=== PATIENT | female | born 1940 | race Caucasian/White ===

== ENCOUNTER 2018-02-19 14:54 | Emergency (ER) | payer OTHER ==
--- OUTSIDE RECORDS SUMMARY | 2018-02-19 14:56 | XMS REPORT ---
:1940 Author Organization e[employer] Care Team Providers Name Role Phone Phan, Na Provider Role Unavailable Allergies, Adverse Reactions, Alerts Substance Reaction Event Type N.K.D.A. Info Not Available Non Drug Allergy Problems Problem Type Condition Code Onset Dates Condition Status Assessment Dysphagia, unspecified type R13.10 Active Problem Parkinson disease G20 Active Problem Thyroiditis, unspecified E06.9 Active Problem Primary insomnia F51.01 Active Problem Osteoporosis M81.0 Active Problem Dysphagia, unspecified type R13.10 Active Problem Age related osteoporosis, M81.0 Active unspecified pathological fracture presence Problem Gastroesophageal reflux disease K21.9 Active without esophagitis Problem Mixed stress and urge urinary N39.46 Active incontinence Assessment Gastroesophageal reflux disease K21.9 Active without esophagitis Assessment Parkinson disease G20 Active Assessment Primary insomnia F51.01 Active Assessment Age related osteoporosis, M81.0 Active unspecified pathological fracture presence Assessment Mixed stress and urge urinary N39.46 Active incontinence Medications Medication Code Code Instructions Start End Status Dosage System Date Date Fosamax [facility] 07480072828 70 MG Orally Active 1 tablet Flonase [facility] 92275405544 50 MCG/ACT Active 1 spray in Nasally Once a each day nostril Carbidopa [facility] 52616973872 25 MG Orally Active 1 tablet Three times a day Ropinirole HCl [facility] 05606558977 5 MG Orally four Active 1 tablet times a day Results Name Result Date Reference Range Unit Abnormality Flag Barium Swallow Modified Summary Purpose eClinicalWorks Submission
--- OUTSIDE RECORDS SUMMARY | 2018-02-19 14:56 | XMS REPORT ---
:1940 Author Organization [employer] Care Team Providers Name Role Phone Phan, Na Provider Role Unavailable Allergies No Known Allergies Problems Problem Type Condition Code Onset Dates Condition Status Problem Parkinson disease G20 Active Problem Thyroiditis, unspecified E06.9 Active Problem Primary insomnia F51.01 Active Problem Osteoporosis M81.0 Active Problem Dysphagia, unspecified type R13.10 Active Problem Age related osteoporosis, M81.0 Active unspecified pathological fracture presence Problem Gastroesophageal reflux disease K21.9 Active without esophagitis Problem Mixed stress and urge urinary N39.46 Active incontinence Medications No Known Medications Results No Known Results Summary Purpose eClinicalWorks Submission
[2018-02-19] MEDS ORDERED: METOCLOPRAMIDE 10 MG/2mL INJ ONE (15:51)
[2018-02-19] MEDS ORDERED: DIPHENHYDRAMINE 50 MG/ML VIAL ONE (15:51)
[2018-02-19 15:56] LABS: Absolute Lymphocytes (CBC) 1.4 K/uL (0.7-4.9); Absolute Monocytes 0.6 K/uL (0.1-1.3); Absolute Neutrophil 5.6 K/uL (1.8-8.0); Basophils % 0.7 % (0-1.3); Eosinophils % 1.1 % (0-4.4); Hematocrit 35.4 % (36.0-45.0); Lymphocytes % 17.8 % (15.3-44.8); MCH 30.7 pg (27.0-35.0); MCV 89.3 fL (80-100); MPV 7.6 fL (7.6-11.3); Monocytes % 7.7 % (3.3-12.3); RBC Red Blood Cell Count 3.97 M/uL (3.86-4.86)
[2018-02-19 16:01] LABS: Protime INR 1.07
[2018-02-19 16:13] LABS: ALT/SGPT 23 U/L (12-78); AST/SGOT 32 U/L (15-37); Albumin 3.6 g/dL (3.4-5.0); Alkaline Phosphatase 97 U/L (45-117); BUN Blood Urea Nitrogen 20 mg/dL (7-18); Bicarbonate 27 mmol/L (21-32); Bilirubin Direct 0.1 mg/dL (0-0.2); Bilirubin Total 0.4 mg/dL (0.2-1.0); C-Reactive Protein < 2.90 mg/L (<3.00); Glucose Level 104 mg/dL (74-106); Magnesium 2.2 mg/dL (1.8-2.4); Potassium 3.3 mmol/L (3.5-5.1); Protein, Total 6.8 g/dL (6.4-8.2); Sodium Level 137 mmol/L (136-145)
[2018-02-19] MEDS ORDERED: Nicardipine/NS 25 MG/250 ML KIT IV ONE (16:25)
--- NOTE | 2018-02-19 16:26 | RAD REPORT ---
EXAM DESCRIPTION: CT - Head Brain Wo Cont - 02/19/2018 4:07 pm CLINICAL HISTORY: HEADACHE COMPARISON: None TECHNIQUE: All CT scans are performed using dose optimization technique as appropriate and may inclu de automated exposure control or mA/KV adjustment according to patient size. FINDINGS: Acute right-sided subdural hematoma is noted noted measuring 10 mm in maximum thickness. A component of chronic hematoma may also be present anteriorly along the right frontal convexity.Midli ne shift is mild at 1- 2 mm to the left. Moderate brain edema. Fluid is present in the right sphenoid sinus. The calvarium is intact. IMPRESSION: Acute right-sided subdural hematoma as detailed. Midline shift to the left is mild at 1 -2 mm. Findings were discussed with SONNY Gutierrez in the ER 4:20 p.m. 02/19/2018 by telephone
--- NOTE | 2018-02-19 16:44 | EDPHYS ---
Physician Documentation [facility] Name: Megha Arredondo Age: 78 yrs Sex: Female : 1940 Arrival Date: 02/19/2018 Time: 14:57 Bed 19 Private MD: ED Physician José Miguel Beth HPI: 02/19 16:40 This 78 yrs old Female presents to ER via Ambulatory with complaints of jr8 Vision Problem, Headache. 16:40 The patient complains of pain to the . The patient complains of pain to the forehead jr8 and right occipital area. The patient describes the headache as constant, throbbing. Onset: The symptoms/episode began/occurred acutely, today. Associated signs and symptoms: Pertinent positives: blurred vision. Severity of symptoms: At its worst the pain was moderate, in the emergency department the pain is unchanged. Headache History: Denies prior headaches. The symptoms are alleviated by nothing. the symptoms are aggravated by movement. The patient has not experienced similar symptoms in the past. The patient has not recently seen a physician. family stated that she has had frequent falls as of lately because of medications that she is on. Started with headache today . Historical: - Allergies: 15:06 Aspirin; aj1 - Home Meds: 15:06 ropinirole 5 mg Oral tab [Active]; aj1 - PMHx: 15:06 Parkinsons; aj1 - Immunization history:: Flu vaccine is up to date. - Social history:: Smoking status: Patient/guardian denies using tobacco. - Immunization history: Last tetanus immunization: unknown. - Ebola Screening: : Patient denies travel to an Ebola-affected area in the 21 days before illness onset. ROS: 16:40 Eyes: Negative for injury, pain, redness, and discharge, ENT: Negative for injury, jr8 pain, and discharge, Neck: Negative for injury, pain, and swelling, Cardiovascular: Negative for chest pain, palpitations, and edema, Respiratory: Negative for shortness of breath, cough, wheezing, and pleuritic chest pain, Abdomen/GI: Negative for abdominal pain, nausea, vomiting, diarrhea, and constipation, Back: Negative for injury and pain, MS/Extremity: Negative for injury and deformity, Skin: Negative for injury, rash, and discoloration. 16:40 Neuro: Positive for headache, visual changes, Negative for altered mental status, dizziness, gait disturbance, hearing loss, loss of consciousness, numbness, seizure activity, speech changes, syncope, near syncope, tingling, tinnitus, tremor, weakness. Exam: 16:40 Eyes: Pupils equal round and reactive to light, extra-ocular motions intact. Lids and jr8 lashes normal. Conjunctiva and sclera are non-icteric and not injected. Cornea within normal limits. Periorbital areas with no swelling, redness, or edema. ENT: Nares patent. No nasal discharge, no septal abnormalities noted. Tympanic membranes are normal and external auditory canals are clear. Oropharynx with no redness, swelling, or masses, exudates, or evidence of obstruction, uvula midline. Mucous membranes moist. Neck: Trachea midline, no thyromegaly or masses palpated, and no cervical lymphadenopathy. Supple, full range of motion without nuchal rigidity, or vertebral point tenderness. No Meningismus. Cardiovascular: Regular rate and rhythm with a normal S1 and S2. No gallops, murmurs, or rubs. Normal PMI, no JVD. No pulse deficits. Respiratory: Lungs have equal breath sounds bilaterally, clear to auscultation and percussion. No rales, rhonchi or wheezes noted. No increased work of breathing, no retractions or nasal flaring. Abdomen/GI: Soft, non-tender, with normal bowel sounds. No distension or tympany. No guarding or rebound. No evidence of tenderness throughout. Back: No spinal tenderness. No costovertebral tenderness. Full range of motion. Skin: Warm, dry with normal turgor. Normal color with no rashes, no lesions, and no evidence of cellulitis. MS/ Extremity: Pulses equal, no cyanosis. Neurovascular intact. Full, normal range of motion. Neuro: Awake and alert, GCS 15, oriented to person, place, time, and situation. Cranial nerves II-XII grossly intact. Motor strength 5/5 in all extremities. Sensory grossly intact. Cerebellar exam normal. Normal gait. 16:45 ECG was reviewed by the Attending Physician. jr8 Vital Signs: 15:06 BP 162 / 88; Pulse 84; Resp 18; Temp 99.7(TE); Pulse Ox 97% on R/A; Weight 62.6 kg (R); aj1 Height 5 ft. 7 in. (170.18 cm) (R); Pain 6/10; 15:48 BP 177 / 85; Pulse 73; Resp 16; Pulse Ox 96% on R/A; em 16:27 BP 191 / 87; Pulse 85; Resp 16; Pulse Ox 96% on R/A; iw 16:32 BP 149 / 73; Pulse 91; Resp 16 S; Pulse Ox 96% ; Pain 6/10; iw 16:33 BP 152 / 71; iw 16:41 BP 148 / 77; Pulse 89; Resp 16; Pulse Ox 96% on R/A; em 17:29 BP 152 / 76; Pulse 94; Resp 18; Temp 98.0(O); Pulse Ox 96% on R/A; Pain 0/10; em 17:40 BP 161 / 91; Pulse 96; Resp 16; Pulse Ox 96% on R/A; Pain 0/10; em 17:56 BP 156 / 86; Pulse 89; Resp 17; Temp 97.8(TE); Pulse Ox 97% on R/A; Pain 5/10; iw 15:06 Body Mass Index 21.61 (62.60 kg, 170.18 cm) aj1 Briscoe Coma Score: 16:27 Eye Response: spontaneous(4). Verbal Response: confused(4). Motor Response: obeys iw commands(6). Total: 14. Trauma Score (Adult): 15:15 Eye Response: to voice(0); Verbal Response: oriented(1); Motor Response: obeys iw commands(2); Systolic BP: > 89 mm Hg(4); Respiratory Rate: 10 to 29 per min(4); [place]acido Score: 14; Trauma Score: 11 16:27 Eye Response: spontaneous(1); Verbal Response: oriented(1); Motor Response: obeys iw commands(2); Systolic BP: > 89 mm Hg(4); Respiratory Rate: 10 to 29 per min(4); [place]acido Score: 15; Trauma Score: 12 17:56 Eye Response: spontaneous(1); Verbal Response: oriented(1); Motor Response: obeys iw commands(2); Systolic BP: > 89 mm Hg(4); Respiratory Rate: 10 to 29 per min(4); Placido Score: 15; Trauma Score: 12 MDM: 15:28 Patient medically screened. [facility] 16:40 Data reviewed: vital signs, nurses notes, lab test result(s), radiologic studies, CT jr8 scan, and as a result, I will admit patient. Data interpreted: Pulse oximetry: on room air is 96 %. Interpretation: normal. Counseling: I had a detailed discussion with the patient and/or guardian regarding: the historical points, exam findings, and any diagnostic results supporting the discharge/admit diagnosis, lab results, radiology results, the need to transfer to another facility, for higher level of care, [facility] does not immediately have the required specialist. ED course: Dr. Fowler Accepted at [facility]. 02/19 15:44 Order name: Basic Metabolic Panel; Complete Time: 16:14 02/19 15:44 Order name: CBC with Diff; Complete Time: 16:02/19 15:44 Order name: LFT's; Complete Time: 16:02/19 15:44 Order name: Magnesium; Complete Time: 16:14 02/19 15:44 Order name: PT-INR; Complete Time: 16:03 02/19 15:44 Order name: ESR; Complete Time: 16:02/19 15:44 Order name: EKG; Complete Time: 15:44 02/19 15:44 Order name: Cardiac monitoring; Complete Time: 16:32 02/19 15:44 Order name: CRP; Complete Time: 16:02/19 15:44 Order name: CT Head Brain wo Cont; Complete Time: 16:27 02/19 15:44 Order name: EKG - Nurse/Tech; Complete Time: 16:32 02/19 15:44 Order name: IV Saline Lock; Complete Time: 15:02/19 15:44 Order name: Labs collected and sent; Complete Time: 15:02/19 15:44 Order name: O2 Per Protocol; Complete Time: :02/19 15:44 Order name: O2 Sat Monitoring; Complete Time: 15:52 EC:45 Rate is 85 beats/min. Rhythm is regular, Normal Sinus Rhythm. QRS [place] is Normal. RI jr8 interval is normal at 170 msec. QRS interval is normal at 84 msec. QT interval is normal at 430 msec. No Q waves. T waves are Normal. No ST changes noted. Clinical impression: Normal ECG. Interpreted by me. Reviewed by me. Administered Medications: 16:11 Drug: Reglan 10 mg Route: IVP; Site: right antecubital; iw 17:02 Follow up: Response: No adverse reaction em 16:11 Drug: Benadryl 25 mg Route: IVP; Site: right antecubital; iw 17:02 Follow up: Response: No adverse reaction em 16:27 Drug: Cardene 5 mg Route: IV; Rate: ml/hr; Site: right antecubital; iw 18:19 Follow up: Response: No adverse reaction; Blood pressure is lowered; IV Status: em Completed infusion; IV Intake: 50ml 16:31 Not Given (Physician Discretion): Potassium Chloride 20 mEq PO once jr8 Disposition: 02/19/18 16:43 Transfer ordered to [facility]. Diagnosis is Acute Traumatic Subdural Hemorrhage . - Reason for transfer: Higher level of care. - Accepting physician is Dr. Fowler . - Condition is Stable. - Problem is new. - Symptoms have improved. Critical care time excluding procedures: 16:40 Critical care time: Bedside Care: 15 minutes, Consultation: 10 minutes, Family jr8 Intervention: 10 minutes. Total time: 35 minutes Addendum: 02/21/2018 13:58 Co-signature as Attending Physician, José Miguel Beth MD I agree with the assessment and c bush plan of care. Signatures: Dispatcher [employer] Nany Lawson RN RN aj1 José Miguel Beth MD MD cha Munoz, Edgar, SALES ADMINISTRATION SPECIALIST SALES ADMINISTRATION SPECIALIST em Alyson Leach RN RN Shaun Soto PA PA jr8 Corrections: (The following items were deleted from the chart) 02/19 18:20 15:44 Urine Dipstick-Ancillary ordered. jr8 em 18:21 16:43 02/19/2018 16:43 Transfer ordered to [facility]. Diagnosis is em Acute Traumatic Subdural Hemorrhage . Reason for transfer: Higher level of care. Accepting physician is Dr. Fowler . Condition is Stable. Problem is new. Symptoms have improved. jr8
--- NOTE | 2018-02-19 16:44 | ER ---
Nurse's Notes [facility] Name: Megha Arredondo Age: 78 yrs Sex: Female : 1940 Arrival Date: 02/19/2018 Time: 14:57 Bed 19 Private MD: Diagnosis: Acute Traumatic Subdural Hemorrhage Presentation: 02/19 14:57 Presenting complaint: Child states: They came home from vacation on February 02, while aj1 they were on vacation the daugther noticed that all of her symptoms (shaking, drowsiness, difficulty walking, acting "like shes drunk") appear after she takes her Parkinson's medication, so they weaned her off of all her medication. She started taking ropinorole 3 days ago. She always falls asleep after taking the medication and then acts really loopy after she wakes up. See can't see because she has a cataract in her right eye, which they had confirmed by an demurrage agent yesterday. Patient now complains of a headache. Aligning Inspector are equal bilaterally, equal smile and hand script manager. States her vision is blurry in the left eye, which is new. Hematoma noted to forehead. Patient's daughter states that when they walked in she didn't see the glass door and walked into it. Denies LOC. Transition of care: patient was not received from another setting of care. Onset of symptoms was February 19, 2018. Risk Assessment: Do you want to hurt yourself or someone else? Patient reports no desire to harm self or others. Initial Sepsis Screen: Does the patient meet any 2 criteria? No. Patient's initial sepsis screen is negative. Does the patient have a suspected source of infection? No. Patient's initial sepsis screen is negative. Care prior to arrival: None. 14:57 Method Of Arrival: Ambulatory aj1 14:57 Acuity: RUBENS 3 aj1 16:28 Mechanism of Injury: Fall from standing position. Trauma event details: Injury occurred iw in the [facility]. Triage Assessment: 15:06 Headache History: Denies prior headaches. General: Appears in no apparent distress. aj1 uncomfortable, Behavior is calm, cooperative, appropriate for age. Pain: Complains of pain in forehead and base of the skull Pain currently is 6 out of 10 on a pain scale. Pain began 3 hours ago. Neuro: Level of Consciousness is awake, alert, obeys commands, Aligning Inspector are equal bilaterally Facial symmetry appears normal. Cardiovascular: Patient's skin is warm and dry. Respiratory: Airway is patent Respiratory effort is even, unlabored, Respiratory pattern is regular, symmetrical. 17:57 Pain: Also complains of. iw Trauma Activation: Not Applicable Physician: ED Physician; Name: ; Notified At: ; Arrived At: Physician: General Surgeon; Name: ; Notified At: ; Arrived At: Physician: Radiology; Name: ; Notified At: ; Arrived At: Physician: Respiratory; Name: ; Notified At: ; Arrived At: Physician: Lab; Name: ; Notified At: ; Arrived At: Historical: - Allergies: 15:06 Aspirin; aj1 - Home Meds: 15:06 ropinirole 5 mg Oral tab [Active]; aj1 - PMHx: 15:06 Parkinsons; aj1 - Immunization history:: Flu vaccine is up to date. - Social history:: Smoking status: Patient/guardian denies using tobacco. - Immunization history: Last tetanus immunization: unknown. - Ebola Screening: : Patient denies travel to an Ebola-affected area in the 21 days before illness onset. Screenin:20 Abuse screen: Denies threats or abuse. Denies injuries from another. Nutritional mg2 screening: No deficits noted. Tuberculosis screening: No symptoms or risk factors identified. Fall Risk None identified. Secondary diagnosis (15 points) blurred vision. Primary Survey: 15:25 A: Airway: patent. Breathing/Chest: Respiratory pattern: regular, Respiratory effort: iw spontaneous, unlabored, Breath sounds: clear, bilaterally. Chest inspection: symmetrical rise and fall of the chest. Circulation: Cardiac rhythm: sinus rhythm Heart tones present. Pulses: palpable left carotid pulse and right carotid pulse. Skin color: pink, Skin temperature: warm, dry. Disability Alert. 15:45 Reassessment Breathing/Chest Respiratory pattern Regular Respiratory effort Spontaneous iw Unlabored Breath sounds Clear Chest inspection Symmetrical Circulation Heart rhythm Heart tones Present Pulses Palpable Color [place] Temperature Warm Dry Disability Verbal stimuli. Secondary Survey: 16:00 HEENT: No deficits noted. Head No injury/deformity Face No injury/deformity Eyes: No iw injury or deformity noted. to bilateral eyes. Gastrointestinal: Abdomen is soft. Musculoskeletal: Range of motion: intact in all extremities. Assessment: 15:20 General: Appears uncomfortable, Behavior is calm, cooperative, daughter reports blurred em on the left eye and headache since noon, ran into clear glass door of the ER TELESALES AGENT, hematoma noted to forehead. Pain: Complains of pain in head Pain currently is 6 out of 10 on a pain scale. Neuro: Level of Consciousness is awake, alert, obeys commands, Oriented to person, place, time, situation, Aligning Inspector are equal bilaterally Moves all extremities. Full function Speech is normal, Facial symmetry appears normal, Reports headache. Cardiovascular: Capillary refill < 3 seconds Patient's skin is warm and dry. Respiratory: Airway is patent Respiratory effort is even, unlabored, Respiratory pattern is regular, symmetrical. GI: Abdomen is round non-distended. : No signs and/or symptoms were reported regarding the genitourinary system. Derm: Skin is intact, Skin is pink, warm \\T\\ dry. Musculoskeletal: Swelling present in forehead. 15:40 Reassessment: Patient appears in no apparent distress at this time. I agree with above iw assessment by En Henson LVN. 16:20 Reassessment: Patient appears in no apparent distress at this time. Patient and/or em family updated on plan of care and expected duration. Pain level reassessed. Patient is alert, oriented x 3, equal unlabored respirations, skin warm/dry/pink. 17:00 Reassessment: Patient appears in no apparent distress at this time. unable to give em report due to code in unit, will attempt to call back in 10 minutes. 17:01 Reassessment: Patient appears in no apparent distress at this time. Patient and/or em family updated on plan of care and expected duration. Pain level reassessed. Patient is alert, oriented x 3, equal unlabored respirations, skin warm/dry/pink. 17:22 Reassessment: Patient appears in no apparent distress at this time. report called to em Gilberto Mcrae RN at [facility]. 18:03 Reassessment: Patient appears in no apparent distress at this time. Patient and/or em family updated on plan of care and expected duration. Pain level reassessed. Patient is alert, oriented x 3, equal unlabored respirations, skin warm/dry/pink. Patient denies pain at this time. 18:11 Reassessment: Patient appears in no apparent distress at this time. report given to [facility]. Vital Signs: 15:06 BP 162 / 88; Pulse 84; Resp 18; Temp 99.7(TE); Pulse Ox 97% on R/A; Weight 62.6 kg (R); aj1 Height 5 ft. 7 in. (170.18 cm) (R); Pain 6/10; 15:48 BP 177 / 85; Pulse 73; Resp 16; Pulse Ox 96% on R/A; em 16:27 BP 191 / 87; Pulse 85; Resp 16; Pulse Ox 96% on R/A; iw 16:32 BP 149 / 73; Pulse 91; Resp 16 S; Pulse Ox 96% ; Pain 6/10; iw 16:33 BP 152 / 71; iw 16:41 BP 148 / 77; Pulse 89; Resp 16; Pulse Ox 96% on R/A; em 17:29 BP 152 / 76; Pulse 94; Resp 18; Temp 98.0(O); Pulse Ox 96% on R/A; Pain 0/10; em 17:40 BP 161 / 91; Pulse 96; Resp 16; Pulse Ox 96% on R/A; Pain 0/10; em 17:56 BP 156 / 86; Pulse 89; Resp 17; Temp 97.8(TE); Pulse Ox 97% on R/A; Pain 5/10; iw 15:06 Body Mass Index 21.61 (62.60 kg, 170.18 cm) aj1 [place] Coma Score: 16:27 Eye Response: spontaneous(4). Verbal Response: confused(4). Motor Response: obeys iw commands(6). Total: 14. Trauma Score (Adult): 15:15 Eye Response: to voice(0); Verbal Response: oriented(1); Motor Response: obeys iw commands(2); Systolic BP: > 89 mm Hg(4); Respiratory Rate: 10 to 29 per min(4); [place] Score: 14; Trauma Score: 11 16:27 Eye Response: spontaneous(1); Verbal Response: oriented(1); Motor Response: obeys iw commands(2); Systolic BP: > 89 mm Hg(4); Respiratory Rate: 10 to 29 per min(4); [place] Score: 15; Trauma Score: 12 17:56 Eye Response: spontaneous(1); Verbal Response: oriented(1); Motor Response: obeys iw commands(2); Systolic BP: > 89 mm Hg(4); Respiratory Rate: 10 to 29 per min(4); [place] Score: 15; Trauma Score: 12 ED Course: 14:57 Patient arrived in ED. mr 15:05 Triage completed. aj1 15:06 Arm band placed on Patient placed in an exam room. aj1 15:20 Patient has correct armband on for positive identification. Bed in low position. Call em light in reach. Side rails up X 1. Adult w/ patient. 15:20 Patient maintains SpO2 saturation greater than 95% on room air. em 15:20 Thermoregulation: warm blanket given to patient. em 15:28 Shaun Soto PA is PHCP. jr8 15:28 José Miguel Beth MD is Attending Physician. jr8 15:51 Initial lab(s) drawn, by me, sent to lab. Inserted saline lock: 20 gauge in right dh3 antecubital area, using aseptic technique. Blood collected. 16:06 En Henson LVN is Primary Nurse. em 16:06 CT completed. Patient moved to CT via stretcher. Patient moved back from CT. cw1 16:07 CT Head Brain wo Cont In Process Unspecified. EDMS 16:28 Primary Nurse role handed off by En Henson LVN iw 16:28 Alyson Leach, RN is Primary Nurse. iw 16:35 Missed attempt(s): 22 gauge in right forearm. Bleeding controlled, band aid applied, dh3 catheter tip intact. 16:39 Inserted saline lock: 20 gauge in left antecubital area, using aseptic technique. dh3 17:34 No provider procedures requiring assistance completed. Patient transferred, IV remains em in place. Administered Medications: 16:11 Drug: Reglan 10 mg Route: IVP; Site: right antecubital; iw 17:02 Follow up: Response: No adverse reaction em 16:11 Drug: Benadryl 25 mg Route: IVP; Site: right antecubital; iw 17:02 Follow up: Response: No adverse reaction em 16:27 Drug: Cardene 5 mg Route: IV; Rate: ml/hr; Site: right antecubital; iw 18:19 Follow up: Response: No adverse reaction; Blood pressure is lowered; IV Status: em Completed infusion; IV Intake: 50ml 16:31 Not Given (Physician Discretion): Potassium Chloride 20 mEq PO once jr8 Intake: 18:19 IV: 50ml; Total: 50ml. em Output: 17:35 Urine: 100ml (Voided); Total: 100ml. em Outcome: 16:43 ER care complete, transfer ordered by . jr8 17:35 Transferred by ground EMS to [facility], Transfer form completed. em X-rays sent w/ patient. 17:35 Condition: stable 17:35 Instructed on the need for transfer, Demonstrated understanding of instructions. 18:20 Patient's length of stay in the Emergency Department was greater than 2 hours. approval iw time and receiving hospital inability to receive report from AUTOMATIC PROFILE SHAPER OPERATOR due to critical patient Patient's length of stay extended due to 18:21 Patient left the ED. em Signatures: Dispatcher [employer] EDMS Nany Hunter RN RN aj1 Jodi Echeverria SixtoEn, AUTOMATIC PROFILE SHAPER OPERATOR AUTOMATIC PROFILE SHAPER OPERATOR em Alyson Leach RN RN iw [place], Crystal 1 Shaun Soto PA PA jr8 Kasandra Estrella 3 Rocky Alves RN RN mg2 Corrections: (The following items were deleted from the chart) 15:10 14:57 Presenting complaint: Child states: They came home from vacation on February 02 while they were on vacation the daugther noticed that all of her symptoms appear after she takes her medication, she they weaned her off of all her medication. She started taking ropinorole for the past 3 days. She always falls asleep after taking the medication and then acts really loopy after she wakes up. See can't see because she has a cataract in her right eye, which they had confirmed by an demurrage agent yesterday. Patient now complains of a headache. Aligning Inspector are equal bilaterally, equal smile and hand script manager 15:20 14:57 Presenting complaint: Child states: They came home from vacation on February 02 while they were on vacation the daugther noticed that all of her symptoms (shaking, drowsiness, difficulty walking, acting "like shes drunk") appear after she takes her medication, so they weaned her off of all her medication. She started taking ropinorole 3 days ago. She always falls asleep after taking the medication and then acts really loopy after she wakes up. See can't see because she has a cataract in her right eye, which they had confirmed by an demurrage agent yesterday. Patient now complains of a headache. Aligning Inspector are equal bilaterally, equal smile and hand script manager. States her vision is blurry in the left eye, which is new aj1 15:21 14:57 Presenting complaint: Child states: They came home from vacation on February 02, aj1 while they were on vacation the daugther noticed that all of her symptoms (shaking, drowsiness, difficulty walking, acting "like shes drunk") appear after she takes her medication, so they weaned her off of all her medication. She started taking ropinorole 3 days ago. She always falls asleep after taking the medication and then acts really loopy after she wakes up. See can't see because she has a cataract in her right eye, which they had confirmed by an demurrage agent yesterday. Patient now complains of a headache. Aligning Inspector are equal bilaterally, equal smile and hand script manager. States her vision is blurry in the left eye, which is new. Hematoma noted to forehead. Patient's daughter states that when they walked in she didn't see the glass door and walked into it. Denies LOC. aj1 17:01 15:20 General: Appears uncomfortable, Behavior is calm, cooperative, daughter reports em blurred on the left eye and headache, ran into clear glass door of the ER. em 17:57 16:27 [place] Score=14, Trauma Score=12, iw iw 19:02 17:56 BP 156 / 86; Pulse 89bpm; Resp 17bpm; Pulse Ox 97% RA; em iw
--- NOTE | 2018-02-20 10:38 | EKG ---
Test Date: 2018-02-19 Test Time: 16:16:09 Project Crew Worker: ANIYAH MEASUREMENT RESULTS: Intervals: Rate: 85 AR: 170 QRSD: 84 QT: 362 QTc: 430 [place]: P: 45 AR: 170 QRS: 21 T: 13 INTERPRETIVE STATEMENTS: Normal sinus rhythm Nonspecific T wave abnormality Abnormal ECG No previous ECG available for comparison Electronically Signed On 02-20-18 10:38:00 CDT by Abe Snyder
== END 2018-02-19 18:21 | disposition short-term general hospital (02) ==
LOC: ER 14:54
DX: S06.5X0A Traumatic subdural hemorrhage without loss of consciousness, initial encounter (principal); G20 Parkinson's disease; W22.8XXA Striking against or struck by other objects, initial encounter; Y93.9 Activity, unspecified; Y92.9 Unspecified place or not applicable; Z88.6 Allergy status to analgesic agent
CPT/HCPCS: 36415; 70450; 80048; 80076; 83735; 85025; 85610; 85652; 86140; 93005; 96365; 96366; 96375; 99285; J2765

== ENCOUNTER 2018-04-11 08:02 | Day surgery (SDC) | payer OTHER ==
[2018-04-11] MEDS ORDERED: DUOVISC 1 KIT OPTH ONE (08:16)
[2018-04-11] MEDS ORDERED: BALANCED SALT IRRIG PLAIN 500 ML BTL IRR ONE ×2 (08:16→08:18)
[2018-04-11] MEDS ORDERED: EPINEPHRINE/PF 1 MG/ML AMP ONE (08:16)
[2018-04-11] MEDS ORDERED: NS 0.9% VIAL 10 ML ONE (08:16)
[2018-04-11] MEDS ORDERED: MOXIFLOXACIN HCL 10 DROPS/ML **OR USE OPTH ONE (08:19)
[2018-04-11] MEDS ORDERED: LIDOCAINE 2% MPF 5 ML VIAL ONE ×2 (08:41→09:47)
[2018-04-11] MEDS ORDERED: BUPIVACAINE 0.25% PF 10 ML VIAL ONE (08:41)
[2018-04-11] MEDS ORDERED: NA CHLORIDE 0.9% 500 ML ONE (08:42)
[2018-04-11] MEDS ORDERED: TETRACAINE HCL 0.5% 2ML OPTH ONE (08:42)
[2018-04-11] MEDS: PHENYLEPHRINE 10% OPTH 5ML ONE ×2 (08:50→08:55)
[2018-04-11] MEDS: CYCLOPENTOLATE 1% OPTH 2 ML ONE ×2 (08:50→08:55)
[2018-04-11] MEDS ORDERED: PROPOFOL 200 MG/20 ML VIAL IV ONE (09:47)
--- NOTE | 2018-04-11 10:18 | P.BOP ---
Preoperative diagnosis: Nuclear sclerotic and posterior subcapsular cataract OD Postoperative diagnosis: Same Primary procedure: Phacoemulsification with IOL OD Estimated blood loss: None Anesthesia: Local (Subtenon's infusion with anesthesia for cataract surgery) Complications: None Implants: [id number] +16.5 Transferred to: Other (Day surgery) Condition: Good
--- OUTSIDE RECORDS SUMMARY | 2018-04-11 12:25 | XMS REPORT | Clinical Summary ---
:1940 Author Organization [facility] Address [address] [place] [address] Phone Care Team Providers Name Role Phone Unavailable Primary Care Provider Unavailable Allergies No Known Allergies Current Medications Prescription Sig. Disp. Refills Start Date End Date Status sertraline (ZOLOFT) Take 1 tablet 30 tablet 0 03/09/2018 03/09/2019 Active 25 MG tablet (25 mg total) by mouth daily. metoprolol TAKE 1 TABLET 60 tablet 0 04/05/2018 Active (LOPRESSOR) 25 MG BY MOUTH tablet TWICE DAILY traMADol (ULTRAM) Take 1 tablet 30 tablet 0 03/08/2018 03/18/2018 50 mg tablet (50 mg total) by mouth every 6 (six) hours as needed for up to 10 days. Max Daily Amount: 200 mg metoprolol Take 1 tablet 60 tablet 0 03/08/2018 04/05/2018 Discontinued (LOPRESSOR) 25 MG (25 mg total) tablet by mouth 2 (two) times daily. 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 ([facility]) SDH (subdural hematoma) ([facility]) 03/02/2018 Acute subdural hematoma ([facility]) 02/20/2018 Acute encephalopathy 02/20/2018 Encounters Date Type Specialty Care Team Description 04/05/2018 Refill Cardiology Nishant Henry MD 04/05/2018 Refill Cardiology Nishant Henry MD 03/02/2018 - [facility], Acute subdural 03/08/2018 Encounter Medicine Chethan hematoma MD Isatu ([facility]);Acute Nishant Henry, encephalopathy;SDH (subdural hematoma) (HCC);Essential hypertension;Parki nson disease (HCC);Single current episode of major depressive disorder, unspecified depression episode severity 03/01/2018 Orders Only Neurology Jimmy Eller SDH (subdural hematoma) (HCC) (Primary Dx) 02/19/2018 - Hospital Intensive Care Riky Fowler Subdural hematoma 02/22/2018 Encounter MD Myriam (HCC);Acute Bershad, Gurwinder encephalopathy;Acu MD Yfn te subdural hematoma (HCC);Fall, subsequent encounter;Parkinso n disease (HCC) after 04/10/2017 Social History Tobacco Use Types Packs/Day Years Used Date Never Smoker Sex Assigned at Date Recorded Not on file Last Filed Vital Signs Vital Sign Reading Time Taken Blood Pressure 124/69 03/08/2018 3:00 PM CDT Pulse 63 03/08/2018 3:00 PM CDT Temperature 36 C (96.8 F) 03/08/2018 12:46 PM CDT Respiratory Rate 18 03/08/2018 3:00 PM CDT Oxygen Saturation 98% 03/08/2018 3:00 PM CDT Inhaled Oxygen Concentration - - Weight 56.2 kg (124 lb) 03/08/2018 6:00 AM CDT Height 167.6 cm (5' 6") 03/02/2018 4:16 AM CDT Body Mass Index 20.01 03/08/2018 6:00 AM CDT Plan of Treatment Health Maintenance Due Date Last Done Comments INFLUENZA VACCINE 04/18/2018 Results RHYTHM STRIP - SCAN (03/09/2018 9:10 AM)Only the most recent of2 resultswithin the time period is included.POC-Glucose meter (03/08/2018 12:50 PM)Only the most recent of35 resultswithin the time period is included. Component Value Ref Range POC-Glucose Meter 135 (H)Comment: TESTED AT [address] 70 - 110 mg/[place] [address] Specimen Performing Laboratory Blood [facility] [address] [address] CBC with platelet count + automated diff (03/08/2018 5:36 AM)Only the most recent of7 resultswithin the time period is included. Component Value Ref Range WBC 7.5 3.5 - 10.5 K/L RBC 3.46 (L) 3.93 - 5.22 M/L Hemoglobin 10.3 (L) 11.2 - 15.7 GM/DL Hematocrit 32.4 (L) 34.1 - 44.9 % MCV 93.6 79.4 - 94.8 fL MCH 29.8 25.6 - 32.2 pg MCHC 31.8 (L) 32.2 - 35.5 GM/DL RDW 11.8 11.7 - 14.4 % Platelets 464 (H) 150 - 450 K/CU MM MPV 9.4 9.4 - 12.3 fL nRBC 0 0 - 0 /100 WBC % Neutros 61 % % Lymphs 26 % % Monos 9 % % Eos 3 % % Baso 1 % # Neutros 4.60 1.56 - 6.13 K/L # Lymphs 1.94 1.18 - 3.74 K/L # Monos 0.66 (H) 0.24 - 0.36 K/L # Eos 0.25 0.04 - 0.36 K/L # Baso 0.05 0.01 - 0.08 K/L Immature Granulocytes-Relative 1 0 - 1 % Specimen Performing Laboratory Blood - Arm, [address] [address] CBC with platelet count + automated diff (03/08/2018 5:36 AM)Only the most recent of7 resultswithin the time period is included. Specimen Performing Laboratory Blood Narrative The following orders were created for panel order CBC with platelet count + automated diff. Procedure Abnormality Status --------- ------ CBC with platelet count ...[[id number]]AbnormalFinal result Please view results for these tests on the individual orders. Phosphorus (03/08/2018 5:36 AM)Only the most recent of9 resultswithin the time period is included. Component Value Ref Range Phosphorus 3.7 2.3 - 4.7 mg/dL Specimen Performing Laboratory Blood - Arm, [address] [address] Magnesium (03/08/2018 5:36 AM)Only the most recent of10 resultswithin the time period is included. Component Value Ref Range Magnesium 2.2 1.6 - 2.6 mg/dL Specimen Performing Laboratory Blood - Arm, [address] [address] Basic Metabolic Panel (03/08/2018 5:36 AM)Only the most recent of9 resultswithin the time period is included. Component Value Ref Range Sodium 136 136 - 145 meq/L Potassium 4.2 3.5 - 5.1 meq/L Chloride 104 98 - 107 meq/L CO2 27 22 - 29 meq/L BUN 14 7 - 21 mg/dL Creatinine 0.66 0.57 - 1.25 mg/dL Glucose 93 70 - 105 mg/dL Calcium 8.9 8.4 - 10.2 mg/dL EGFR 86Comment: ESTIMATED GFR IS NOT ACCURATE mL/min/1.73 sq m CREATININE CLEARANCE IN PREDICTING GLOMERULAR FILTRATION RATE. ESTIMATED GFR IS NOT APPLICABLE FOR DIALYSIS PATIENTS. Specimen Performing Laboratory Blood - Arm, [address] [address] Calcium, Ionized (03/07/2018 4:09 AM)Only the most recent of2 resultswithin the time period is included. Component Value Ref Range Calcium, Ion 1.05 (L) 1.12 - 1.27 mmol/L pH, Blood 7.40 Specimen Performing Laboratory Blood - Arm, [address] [address] Urinalysis w/Microscopic + Reflex to Culture (03/05/2018 4:10 PM) Component Value Ref Range Color, UA Yellow Clarity, UA Hazy Specific [place], UA 1.012 1.001 - 1.035 pH, UA 5.5 5.0 - 8.0 Protein, UA 30 mg/dL (A) Negative Glucose, UA Negative Negative Ketones, UA 40 mg/dL (A) Negative Bilirubin, UA Negative Negative Blood, UA Large (A) Negative Nitrite, UA Positive (A) Negative Leukocytes, UA Large (A) Negative Urobilinogen, UA 0.2 0.2 - 1.0 mg/dL RBC, UA 11 /HPF WBC, UA 51 /HPF Bacteria, UA Occasional Specimen Source Specimen Performing Laboratory Urine - Urine, Straight Catheter [address] [address] Urine culture (03/05/2018 4:10 PM) Component Value Ref Range Result >100,000 col/mL Escherichia coli (A) Specimen Performing Laboratory Urine - Urine, Straight Catheter [address] [address] Organism Antibiotic Method Susceptibility Escherichia coli Amikacin <=2: Susceptible Escherichia coli Ampicillin + Sulbactam 16: Resistant Escherichia coli Aztreonam <=1: Susceptible Escherichia coli Cefepime <=1: Susceptible Escherichia coli Cefoxitin <=4: Susceptible Escherichia coli Ceftazidime <=1: Susceptible Escherichia coli Ceftriaxone <=1: Susceptible Escherichia coli Ertapenem <=0.5: Susceptible Escherichia coli Gentamicin <=1: Susceptible Escherichia coli Levofloxacin <=0.12: Susceptible Escherichia coli Meropenem <=0.25: Susceptible Escherichia coli Nitrofurantoin <=16: Susceptible Escherichia coli Piperacillin + Tazobactam <=4: Susceptible Escherichia coli Tetracycline <=1: Susceptible Escherichia coli Tobramycin <=1: Susceptible Escherichia coli Trimethoprim + Sulfamethoxazole <=20: Susceptible TSH/Free T4 If Indicated (03/04/2018 3:44 AM) Component Value Ref Range TSH 1.61 0.35 - 4.94 uIU/mL Specimen Performing Laboratory Blood [address] [address] [address] brain without IV contrast portable (03/02/2018 9:18 PM)Only the most recent of2 resultswithin the time period is included. Specimen Performing Laboratory [facility] Narrative FINAL REPORT CT Head without contrast CLINICAL HISTORY: SDH TECHNIQUE: Contiguous axial images through the head without contrast on the portable CT unit. This exam was performed according to the departmental dose optimization program which includes automated exposure control, adjustment of the mA and/or kV according to the patient size, and/or use of an iterative reconstruction technique. COMPARISON: 02/20/2018 FINDINGS: The right lateral cerebral hemispheric subdural hematoma has decreased in size and density. Mild mass effect on the right temporal lobe is similarly decreased without midline shift. Generalized parenchymal volume loss is again noted without hydrocephalus. There is no definitive CT evidence for an acute ischemic infarct. The skull is intact. IMPRESSION: Since 02/20/2018, the right lateral cerebral hemispheric subdural hematoma has decreased in size. Signed: Cholo Pepper MD Report Verified Date/Time:03/02/2018 21:28:16 [facility] Rad[facility] Reading Room Procedure Note Interface, External Ris In - 03/02/2018 9:30 PM CDT FINAL REPORT CT Head without contrast CLINICAL HISTORY: SDH TECHNIQUE: Contiguous axial images through the head without contrast on the portable CT unit. This exam was performed according to the departmental dose optimization program which includes automated exposure control, adjustment of the mA and/or kV according to the patient size, and/or use of an iterative reconstruction technique. COMPARISON: 02/20/2018 FINDINGS: The right lateral cerebral hemispheric subdural hematoma has decreased in size and density. Mild mass effect on the right temporal lobe is similarly decreased without midline shift. Generalized parenchymal volume loss is again noted without hydrocephalus. There is no definitive CT evidence for an acute ischemic infarct. The skull is intact. IMPRESSION: Since 02/20/2018, the right lateral cerebral hemispheric subdural hematoma has decreased in size. Signed: Cholo Pepper MD Report Verified Date/Time: 03/02/2018 21:28:16 Reading [facility] Radiology Reading Room AWAKE AND DROWSY (03/02/2018 9:25 AM) Specimen Performing Laboratory GE RIS Narrative Date of EE03/02/18 DATE OF REPORT: 03/02/18 ACC: [id number] EEG Number: [id number] Test Location: ICU Start time: 9:04 Stop time: 9:25 ICD-10:R56.9 CPT Code: 01298 HISTORY: Ms. Arredondo is a 78 y/o female with Parkinson's Disease, s/p R lateral SDH, now with twitching of left face MEDICATIONS THAT COULD AFFECT EEG: [place] TECHNICAL SUMMARY: This is a digital video-EEG recorded with 32 input channels reviewed with bipolar and referential montages using the modified combinatorial system nomenclature. DESCRIPTION OF RECORD: During the maximally alert state, an 8.5-9 Hz posterior dominant rhythm was seen better expressed on the left than right.More anteriorly, low voltage frontocentral beta predominated.There is focal ~2 Hz delta activity in the right frontotemporal region (Fp2, F4, FT10, T8), along with attenuation of higher frequencies in these regions. The background activity is reactive to external stimulation. Drowsiness was characterized by alpha attenuation and increased frontocentral theta; no features of stage II sleep. EVENTS: No events SIGNIFICANT ELECTROCARDIOGRAM EVENTS: None HYPERVENTILATION: Not performed PHOTIC STIMULATION: Photic stimulation was done from 3-30 Hz; photoparoxysmal responses were absent.There is bilateral driving at 9, 12 and 15 Hz. IMPRESSION: Abnormal awake and drowsy EEG due to focal slowing in the right frontotemporal region CLINICAL CORRELATION: Continuous focal slowing is a nonspecific finding which can be associated with underlying structural abnormality of the involved region (right lateral SDH in this patient). The absence of epileptiform abnormality does not necessarily preclude the clinical diagnosis of epilepsy for the event(s) of interest. Radha Dukes MD, PhD Epilepsy Fellow Dav Quezada MD Attending Neurophysiologist Procedure Note Interface, External Ris In - 03/02/2018 11:05 AM CDT Date of EE03/02/18 DATE OF REPORT: 03/02/18 ACC: [id number] EEG Number: [id number] Test Location: ICU Start time: 9:04 Stop time: 9:25 ICD-10: R56.9 CPT Code: 39231 HISTORY: Ms. Arredondo is a 78 y/o female with Parkinson's Disease, s/p R lateral SDH, now with twitching of left face MEDICATIONS THAT COULD AFFECT EEG: [place] TECHNICAL SUMMARY: This is a digital video-EEG recorded with 32 input channels reviewed with bipolar and referential montages using the modified combinatorial system nomenclature. DESCRIPTION OF RECORD: During the maximally alert state, an 8.5-9 Hz posterior dominant rhythm was seen better expressed on the left than right. More anteriorly, low voltage frontocentral beta predominated. There is focal ~2 Hz delta activity in the right frontotemporal region (Fp2, F4, FT10, T8), along with attenuation of higher frequencies in these regions. The background activity is reactive to external stimulation. Drowsiness was characterized by alpha attenuation and increased frontocentral theta; no features of stage II sleep. EVENTS: No events SIGNIFICANT ELECTROCARDIOGRAM EVENTS: None HYPERVENTILATION: Not performed PHOTIC STIMULATION: Photic stimulation was done from 3-30 Hz; photoparoxysmal responses were absent. There is bilateral driving at 9, 12 and 15 Hz. IMPRESSION: Abnormal awake and drowsy EEG due to focal slowing in the right frontotemporal region CLINICAL CORRELATION: Continuous focal slowing is a nonspecific finding which can be associated with underlying structural abnormality of the involved region (right lateral SDH in this patient). The absence of epileptiform abnormality does not necessarily preclude the clinical diagnosis of epilepsy for the event(s) of interest. Radha Dukes MD, PhD Epilepsy Fellow Dva Quezada MD Attending Neurophysiologist Prothrombin time/INR (03/02/2018 4:42 AM)Only the most recent of2 resultswithin the time period is included. Component Value Ref Range Protime 14.1 11.7 - 14.7 seconds INR 1.1 <=5.9 Specimen Performing Laboratory Blood - Arm, Right [address] [address] Narrative RECOMMENDED COUMADIN/WARFARIN INR THERAPY RANGES STANDARD DOSE: 2.0 - 3.0 Includes: PROPHYLAXIS for venous thrombosis, systemic embolization; TREATMENT for venous thrombosis and/or pulmonary embolus. HIGH RISK: Target INR is 2.5-3.5 for patients with mechanical heart valves. TRANSFUSION SERVICE REPORT - SCAN (02/22/2018 6:03 PM)Only the most recent of3 resultswithin the time period is included.Potassium (02/22/2018 4:35 AM)Only the most recent of2 resultswithin the time period is included. Component Value Ref Range Potassium 4.2 3.5 - 5.1 meq/L Specimen Performing Laboratory Blood [address] [address] Narrative Check Serum Potassium level 2 hours after oral potassium replacement completed or 30 min after intravenous potassium replacement. Prepare Leuko-Red PLT (02/21/2018 11:54 PM) Component Value Ref Range Unit ABO A Pos UNIT NUMBER [id number] Status TRANSFUSED Blood Bank Product PLATELETS PRODUCT CODE [id number] Specimen Performing Laboratory Blood [employer] [place] CBC (Hemogram only) (02/20/2018 4:08 AM) Component Value Ref Range WBC 8.5 3.5 - 10.5 K/L RBC 3.65 (L) 3.93 - 5.22 M/L Hemoglobin 11.1 (L) 11.2 - 15.7 GM/DL Hematocrit 34.0 (L) 34.1 - 44.9 % MCV 93.2 79.4 - 94.8 fL MCH 30.4 25.6 - 32.2 pg MCHC 32.6 32.2 - 35.5 GM/DL RDW 11.9 11.7 - 14.4 % Platelets 380 150 - 450 K/CU MM MPV 9.2 (L) 9.4 - 12.3 fL nRBC 0 0 - 0 /100 WBC Specimen Performing Laboratory Blood [address] [address] Hepatic function panel (02/20/2018 12:06 AM) Component Value Ref Range Protein, Total 6.4 6.0 - 8.3 gm/dL Albumin 3.7 3.5 - 5.0 g/dL Total Bilirubin 0.7 0.2 - 1.2 mg/dL Bilirubin, Direct 0.3 0.1 - 0.5 mg/dL Alkaline Phosphatase 91 40 - 150 U/L AST 27 5 - 34 U/L ALT 13 6 - 55 U/L Specimen Performing Laboratory Blood - Arm, [address] [address] Type and screen, automated (02/19/2018 11:33 PM) Component Value Ref Range ABO/RH AUTOMATED (BEAKER) A POSITIVE Ab Scrn NEGATIVE Specimen Performing Laboratory Blood - Arm, [address] [address] aPTT (02/19/2018 11:33 PM) Component Value Ref Range PTT 32.0 22.5 - 36.0 seconds Specimen Performing Laboratory Blood - Arm, [address] [address] after 04/10/2017 Advance Directives Patient has advance directives. For more information, please contact:[address] [phone]
--- OUTSIDE RECORDS SUMMARY | 2018-04-11 12:26 | XMS REPORT ---
:1940 Author Organization [employer] Care Team Providers Name Role Phone Phan, Na Provider Role Unavailable Allergies No Known Allergies Problems Problem Type Condition Code Onset Dates Condition Status Problem Primary insomnia F51.01 Active Problem Osteoporosis M81.0 Active Problem Thyroiditis, unspecified E06.9 Active Problem Iron deficiency E61.1 Active Problem History of hypothyroidism Z86.39 Active Problem Weakness R53.1 Active Problem Recent urinary tract infection Z87.440 Active Problem Subdural hematoma, acute S06.5X9A Active Problem Unsteady gait R26.81 Active Problem Bilateral lower extremity edema R60.0 Active Problem Dysphagia, unspecified type R13.10 Active Problem Parkinson disease G20 Active Problem Mixed stress and urge urinary N39.46 Active incontinence Problem Age related osteoporosis, M81.0 Active unspecified pathological fracture presence Problem Gastroesophageal reflux disease K21.9 Active without esophagitis Medications No Known Medications Results No Known Results Summary Purpose [employer] Submission
--- OUTSIDE RECORDS SUMMARY | 2018-04-11 12:26 | XMS REPORT ---
:1940 Author Organization [employer] Care Team Providers Name Role Phone Phan, Na Provider Role Unavailable Allergies No Known Allergies Problems Problem Type Condition Code Onset Dates Condition Status Problem Thyroiditis, unspecified E06.9 Active Problem Subdural hematoma, acute S06.5X9A Active Problem Osteoporosis M81.0 Active Problem Weakness R53.1 Active Problem Iron deficiency E61.1 Active Problem History of breast cancer Z85.3 Active Problem Bilateral lower extremity edema R60.0 Active Problem Recent urinary tract infection Z87.440 Active Problem History of hypothyroidism Z86.39 Active Problem Unsteady gait R26.81 Active Assessment History of breast cancer Z85.3 Active Problem Parkinson disease G20 Active Problem Mixed stress and urge urinary N39.46 Active incontinence Problem Age related osteoporosis, M81.0 Active unspecified pathological fracture presence Problem Gastroesophageal reflux disease K21.9 Active without esophagitis Problem Dysphagia, unspecified type R13.10 Active Problem Primary insomnia F51.01 Active Medications No Known Medications Results No Known Results Summary Purpose [employer] Submission
--- OUTSIDE RECORDS SUMMARY | 2018-04-11 12:26 | XMS REPORT ---
[...] End Status Dosage System Date Date Fosamax [facility] [id number] 70 MG Orally Active 1 tablet Flonase [facility] 51480606483 50 MCG/ACT Active 1 spray in Nasally Once a each day nostril Carbidopa [facility] 44153781551 25 MG Orally Active 1 tablet Three times a day Ropinirole HCl [facility] 44393671477 5 MG Orally four Active 1 tablet times a day Results Name Result Date Reference Range Unit Abnormality Flag Barium Swallow Modified Summary Purpose [employer] Submission
--- OUTSIDE RECORDS SUMMARY | 2018-04-11 12:26 | XMS REPORT ---
[...] Medications Results No Known Results Summary Purpose [employer] Submission
--- OUTSIDE RECORDS SUMMARY | 2018-04-11 12:26 | XMS REPORT ---
[...] E06.9 Active Problem Iron deficiency E61.1 Active Assessment Bilateral lower extremity edema R60.0 Active Problem History of hypothyroidism Z86.39 Active Assessment Iron deficiency E61.1 Active Assessment Weakness R53.1 Active Problem Weakness R53.1 Active Problem Recent urinary tract infection Z87.440 Active Problem Subdural hematoma, acute S06.5X9A Active Problem Unsteady gait R26.81 Active Problem Bilateral lower extremity edema R60.0 Active Assessment Unsteady gait R26.81 Active Assessment Subdural hematoma, acute S06.5X9A Active Assessment Parkinson disease G20 Active Assessment Recent urinary tract infection Z87.440 Active Problem Dysphagia, unspecified type R13.10 Active Problem Parkinson disease G20 Active Problem Mixed stress and urge urinary N39.46 Active incontinence Assessment History of hypothyroidism Z86.39 Active Problem Age related osteoporosis, M81.0 Active unspecified pathological fracture presence Problem Gastroesophageal reflux disease K21.9 Active without esophagitis Medications Medication Code Code Instructions Start End Status Dosage System Date Date Flonase [facility] [id number] 50 MCG/ACT Active 1 spray in Nasally Once a each day nostril Ropinirole HCl [facility] 78102563473 5 MG Orally four Active 1 tablet times a day Fosamax [facility] 58221655862 70 MG Orally Active 1 tablet Carbidopa [facility] 45037908416 25 MG Orally Active 1 tablet Three times a day Results No Known Results Summary Purpose [employer] Submission
--- OUTSIDE RECORDS SUMMARY | 2018-04-11 12:26 | XMS REPORT ---
:1940 Author Organization [facility] Address [address] [place] [address] [address] [place] [address] Care Team Providers Name Role Phone MARÍA GARCIA Unavailable Unavailable ADIEL FREEMAN Unavailable Unavailable Problems This patient has no known problems. Allergies, Adverse Reactions, Alerts This patient has no known allergies or adverse reactions. Medications This patient has no known medications. Results Test Description Test Time Test Comments Text Results Atomic Results Result Comments POCT-GLUCOSE METER 2018-03-08 12:51:00 Test Item Value Reference Range Comments POC-GLUCOSE METER (BEAKER) (test 135 mg/dL 70-110 TESTED AT [address] mxus=0242) [facility] [address] POCT-GLUCOSE [id number] 08:35:00 Test Item Value Reference Range Comments POC-GLUCOSE METER (BEAKER) 98 mg/dL 70-110 TESTED AT [address] (test mfjl=8231) [facility] [address] [id number] 07:00:00 Test Item Value Reference Range Comments PHOSPHORUS (BEAKER) (test naot=854) 3.7 mg/dL 2.3-4.7 [id number] 07:00:00 Test Item Value Reference Range Comments MAGNESIUM (BEAKER) (test jeda=747) 2.2 mg/dL 1.6-2.6 BASIC METABOLIC [id number] 07:00:00 Test Item Value Reference Range Comments SODIUM (BEAKER) (test 136 meq/L 136-145 dlwj=815) POTASSIUM (BEAKER) (test 4.2 meq/L 3.5-5.1 ywhn=875) CHLORIDE (BEAKER) (test 104 meq/L 98-107 durp=338) CO2 (BEAKER) (test 27 meq/L 22-29 jcle=474) BLOOD UREA NITROGEN 14 mg/dL 7-21 (BEAKER) (test exxp=046) CREATININE (BEAKER) (test 0.66 mg/dL 0.57-1.25 jgww=936) GLUCOSE RANDOM (BEAKER) 93 mg/dL 70-105 (test qlle=802) CALCIUM (BEAKER) (test 8.9 mg/dL 8.4-10.2 lewq=709) EGFR (BEAKER) (test 86 mL/min/1.73 sq m ESTIMATED GFR IS NOT cwjl=7153) ACCURATE CREATININE CLEARANCE IN PREDICTING GLOMERULAR FILTRATION RATE. ESTIMATED GFR IS NOT APPLICABLE FOR DIALYSIS PATIENTS. CBC W/PLT COUNT & AUTO [id number] 06:37:00 Test Item Value Reference Range Comments WHITE BLOOD CELL COUNT (BEAKER) (test abel=386) 7.5 K/ L 3.5-10.5 RED BLOOD CELL COUNT (BEAKER) (test dppc=455) 3.46 M/ L 3.93-5.22 HEMOGLOBIN (BEAKER) (test njcc=857) 10.3 GM/DL 11.2-15.7 HEMATOCRIT (BEAKER) (test vagf=283) 32.4 % 34.1-44.9 MEAN CORPUSCULAR VOLUME (BEAKER) (test aoyg=926) 93.6 fL 79.4-94.8 MEAN CORPUSCULAR HEMOGLOBIN (BEAKER) (test 29.8 pg 25.6-32.2 swkc=440) MEAN CORPUSCULAR HEMOGLOBIN CONC (BEAKER) (test 31.8 GM/DL 32.2-35.5 puhv=165) RED CELL DISTRIBUTION WIDTH (BEAKER) (test 11.8 % 11.7-14.4 qons=036) PLATELET COUNT (BEAKER) (test evar=273) 464 K/CU MM 150-450 MEAN PLATELET VOLUME (BEAKER) (test xqth=799) 9.4 fL 9.4-12.3 NUCLEATED RED BLOOD CELLS (BEAKER) (test 0 /100 WBC 0-0 aqua=225) NEUTROPHILS RELATIVE PERCENT (BEAKER) (test 61 % thuq=511) LYMPHOCYTES RELATIVE PERCENT (BEAKER) (test 26 % jndi=851) MONOCYTES RELATIVE PERCENT (BEAKER) (test 9 % dpeo=171) EOSINOPHILS RELATIVE PERCENT (BEAKER) (test 3 % mjzt=383) BASOPHILS RELATIVE PERCENT (BEAKER) (test 1 % vtrc=151) NEUTROPHILS ABSOLUTE COUNT (BEAKER) (test 4.60 K/ L 1.56-6.13 lwpm=386) LYMPHOCYTES ABSOLUTE COUNT (BEAKER) (test 1.94 K/ L 1.18-3.74 kwed=411) MONOCYTES ABSOLUTE COUNT (BEAKER) (test 0.66 K/ L 0.24-0.36 btvb=013) EOSINOPHILS ABSOLUTE COUNT (BEAKER) (test 0.25 K/ L 0.04-0.36 stvr=785) BASOPHILS ABSOLUTE COUNT (BEAKER) (test 0.05 K/ L 0.01-0.08 cdaw=419) IMMATURE GRANULOCYTES-RELATIVE PERCENT (BEAKER) 1 % 0-1 (test nvsa=2776) POCT-GLUCOSE [id number] 20:34:00 Test Item Value Reference Range Comments POC-GLUCOSE METER (BEAKER) 144 mg/dL 70-110 TESTED AT [address] (test agfn=0630) [place] [id number] POCT-GLUCOSE [id number] 13:04:00 Test Item Value Reference Range Comments POC-GLUCOSE METER (BEAKER) 114 mg/dL 70-110 TESTED AT [address] (test vvbj=4043) [place] [id number] POCT-GLUCOSE [id number] 08:26:00 Test Item Value Reference Range Comments POC-GLUCOSE METER (BEAKER) 104 mg/dL 70-110 TESTED AT [address] (test xaon=7734) [place] [id number] CALCIUM, [id number] 05:25:00 Test Item Value Reference Range Comments CALCIUM IONIZED (BEAKER) (test xqje=045) 1.05 mmol/L 1.12-1.27 PH, BLOOD (BEAKER) (test afwc=0703) 7.40 [id number] 04:36:00 Test Item Value Reference Range Comments PHOSPHORUS (BEAKER) (test rcne=099) 3.4 mg/dL 2.3-4.7 [id number] 04:36:00 Test Item Value Reference Range Comments MAGNESIUM (BEAKER) (test tliz=885) 2.1 mg/dL 1.6-2.6 BASIC METABOLIC [id number] 04:36:00 Test Item Value Reference Range Comments SODIUM (BEAKER) (test 133 meq/L 136-145 dowm=902) POTASSIUM (BEAKER) (test 4.1 meq/L 3.5-5.1 sllj=163) CHLORIDE (BEAKER) (test 103 meq/L 98-107 tdbf=015) CO2 (BEAKER) (test 21 meq/L 22-29 xatn=755) BLOOD UREA NITROGEN 15 mg/dL 7-21 (BEAKER) (test rxli=542) CREATININE (BEAKER) (test 0.70 mg/dL 0.57-1.25 thfa=989) GLUCOSE RANDOM (BEAKER) 107 mg/dL 70-105 (test gpfp=833) CALCIUM (BEAKER) (test 8.9 mg/dL 8.4-10.2 rvhu=647) EGFR (BEAKER) (test 81 mL/min/1.73 sq m ESTIMATED GFR IS NOT kswi=4918) ACCURATE CREATININE CLEARANCE IN PREDICTING GLOMERULAR FILTRATION RATE. ESTIMATED GFR IS NOT APPLICABLE FOR DIALYSIS PATIENTS. CBC W/PLT COUNT & AUTO [id number] 04:21:00 Test Item Value Reference Range Comments WHITE BLOOD CELL COUNT (BEAKER) (test mudh=553) 10.0 K/ L 3.5-10.5 RED BLOOD CELL COUNT (BEAKER) (test fthp=502) 3.63 M/ L 3.93-5.22 HEMOGLOBIN (BEAKER) (test xecc=426) 10.7 GM/DL 11.2-15.7 HEMATOCRIT (BEAKER) (test lvwn=592) 33.5 % 34.1-44.9 MEAN CORPUSCULAR VOLUME (BEAKER) (test inzc=948) 92.3 fL 79.4-94.8 MEAN CORPUSCULAR HEMOGLOBIN (BEAKER) (test 29.5 pg 25.6-32.2 tgbj=379) MEAN CORPUSCULAR HEMOGLOBIN CONC (BEAKER) (test 31.9 GM/DL 32.2-35.5 lsgx=453) RED CELL DISTRIBUTION WIDTH (BEAKER) (test 11.8 % 11.7-14.4 xbnx=625) PLATELET COUNT (BEAKER) (test agzy=592) 434 K/CU MM 150-450 MEAN PLATELET VOLUME (BEAKER) (test tdup=649) 8.6 fL 9.4-12.3 NUCLEATED RED BLOOD CELLS (BEAKER) (test 0 /100 WBC 0-0 tkdy=421) NEUTROPHILS RELATIVE PERCENT (BEAKER) (test 64 % cans=240) LYMPHOCYTES RELATIVE PERCENT (BEAKER) (test 24 % dugd=254) MONOCYTES RELATIVE PERCENT (BEAKER) (test 8 % rgse=860) EOSINOPHILS RELATIVE PERCENT (BEAKER) (test 3 % kyra=888) BASOPHILS RELATIVE PERCENT (BEAKER) (test 1 % prqr=640) NEUTROPHILS ABSOLUTE COUNT (BEAKER) (test 6.44 K/ L 1.56-6.13 upcj=204) LYMPHOCYTES ABSOLUTE COUNT (BEAKER) (test 2.37 K/ L 1.18-3.74 uyyw=723) MONOCYTES ABSOLUTE COUNT (BEAKER) (test 0.81 K/ L 0.24-0.36 mioz=644) EOSINOPHILS ABSOLUTE COUNT (BEAKER) (test 0.27 K/ L 0.04-0.36 phtw=959) BASOPHILS ABSOLUTE COUNT (BEAKER) (test 0.05 K/ L 0.01-0.08 nzsy=584) IMMATURE GRANULOCYTES-RELATIVE PERCENT (BEAKER) 1 % 0-1 (test vnnx=2001) POCT-GLUCOSE [id number] 21:36:00 Test Item Value Reference Range Comments POC-GLUCOSE METER (BEAKER) 132 mg/dL 70-110 TESTED AT [address] (test szbd=9711) [place] [address] POCT-GLUCOSE [id number] 17:00:00 Test Item Value Reference Range Comments POC-GLUCOSE METER (BEAKER) 96 mg/dL 70-110 TESTED AT [address] (test gnki=8356) [place] [address] POCT-GLUCOSE [id number] 12:37:00 Test Item Value Reference Range Comments POC-GLUCOSE METER (BEAKER) 134 mg/dL 70-110 TESTED AT [address] (test yxhz=6475) [place] [address] POCT-GLUCOSE [id number] 08:31:00 Test Item Value Reference Range Comments POC-GLUCOSE METER (BEAKER) 110 mg/dL 70-110 TESTED AT [address] (test eqzk=7534) [place] [address] [id number] 07:03:00 Test Item Value Reference Range Comments PHOSPHORUS (BEAKER) (test pcaw=179) 3.3 mg/dL 2.3-4.7 [id number] 07:03:00 Test Item Value Reference Range Comments MAGNESIUM (BEAKER) (test ufjw=718) 2.0 mg/dL 1.6-2.6 BASIC METABOLIC [id number] 07:03:00 Test Item Value Reference Range Comments SODIUM (BEAKER) (test 132 meq/L 136-145 mfwt=386) POTASSIUM (BEAKER) (test 4.0 meq/L 3.5-5.1 iuez=854) CHLORIDE (BEAKER) (test 103 meq/L 98-107 eefg=182) CO2 (BEAKER) (test 22 meq/L 22-29 xptw=165) BLOOD UREA NITROGEN 18 mg/dL 7-21 (BEAKER) (test vuhl=813) CREATININE (BEAKER) (test 0.72 mg/dL 0.57-1.25 ylvu=197) GLUCOSE RANDOM (BEAKER) 108 mg/dL 70-105 (test cmss=360) CALCIUM (BEAKER) (test 8.5 mg/dL 8.4-10.2 cuhe=846) EGFR (BEAKER) (test 78 mL/min/1.73 sq m ESTIMATED GFR IS NOT higs=9181) ACCURATE CREATININE CLEARANCE IN PREDICTING GLOMERULAR FILTRATION RATE. ESTIMATED GFR IS NOT APPLICABLE FOR DIALYSIS PATIENTS. POCT-GLUCOSE [id number] 21:23:00 Test Item Value Reference Range Comments POC-GLUCOSE METER (BEAKER) 136 mg/dL 70-110 TESTED AT [facility] [address] [facility] (test ukgo=8466) [place] [id number] POCT-GLUCOSE [id number] 17:51:00 Test Item Value Reference Range Comments POC-GLUCOSE METER (BEAKER) 155 mg/dL 70-110 TESTED AT [facility] [address] [facility] (test ihjs=5457) [facility] [address] URINALYSIS W/ REFLEX URINE [id number] 16:37:00 Test Item Value Reference Range Comments COLOR (BEAKER) (test fyus=204) Yellow CLARITY (BEAKER) (test sihc=635) Hazy SPECIFIC GRAVITY UA (BEAKER) (test bfns=591) 1.012 1.001-1.035 PH UA (BEAKER) (test vcek=866) 5.5 5.0-8.0 PROTEIN UA (BEAKER) (test pgrt=337) 30 mg/dL Negative GLUCOSE UA (BEAKER) (test lwyl=541) Negative Negative KETONES UA (BEAKER) (test qdqx=426) 40 mg/dL Negative BILIRUBIN UA (BEAKER) (test dblx=386) Negative Negative BLOOD UA (BEAKER) (test okxy=897) Large Negative NITRITE UA (BEAKER) (test dhhn=408) Positive Negative LEUKOCYTE ESTERASE UA (BEAKER) (test vvfj=469) Large Negative UROBILINOGEN UA (BEAKER) (test osbu=648) 0.2 mg/dL 0.2-1.0 RBC UA (BEAKER) (test pytb=167) 11 /HPF WBC UA (BEAKER) (test vgmt=963) 51 /HPF BACTERIA (BEAKER) (test kfvt=035) Occasional SOURCE(BEAKER) (test auhf=0418) POCT-GLUCOSE [id number] 12:26:00 Test Item Value Reference Range Comments POC-GLUCOSE METER (BEAKER) 98 mg/dL 70-110 TESTED AT [address] (test cvjt=0451) [facility] [address] POCT-GLUCOSE [id number] 08:31:00 Test Item Value Reference Range Comments POC-GLUCOSE METER (BEAKER) 101 mg/dL 70-110 TESTED AT [address] (test noos=9761) [facility] [address] [id number] 06:37:00 Test Item Value Reference Range Comments PHOSPHORUS (BEAKER) (test afhw=813) 3.6 mg/dL 2.3-4.7 [id number] 06:37:00 Test Item Value Reference Range Comments MAGNESIUM (BEAKER) (test wdml=500) 2.3 mg/dL 1.6-2.6 BASIC METABOLIC [id number] 06:37:00 Test Item Value Reference Range Comments SODIUM (BEAKER) (test 135 meq/L 136-145 nrmh=382) POTASSIUM (BEAKER) (test 4.6 meq/L 3.5-5.1 dtva=966) CHLORIDE (BEAKER) (test 104 meq/L 98-107 ldxe=363) CO2 (BEAKER) (test 22 meq/L 22-29 fekc=484) BLOOD UREA NITROGEN 11 mg/dL 7-21 (BEAKER) (test xgmz=695) CREATININE (BEAKER) (test 0.72 mg/dL 0.57-1.25 hnuh=361) GLUCOSE RANDOM (BEAKER) 97 mg/dL 70-105 (test tevm=443) CALCIUM (BEAKER) (test 9.4 mg/dL 8.4-10.2 hyyo=356) EGFR (BEAKER) (test 78 mL/min/1.73 sq m ESTIMATED GFR IS NOT hnhh=3581) ACCURATE CREATININE CLEARANCE IN PREDICTING GLOMERULAR FILTRATION RATE. ESTIMATED GFR IS NOT APPLICABLE FOR DIALYSIS PATIENTS. CBC W/PLT COUNT & AUTO [id number] 05:35:00 Test Item Value Reference Range Comments WHITE BLOOD CELL COUNT (BEAKER) (test glgd=312) 9.4 K/ L 3.5-10.5 RED BLOOD CELL COUNT (BEAKER) (test rene=292) 3.78 M/ L 3.93-5.22 HEMOGLOBIN (BEAKER) (test afip=671) 11.1 GM/DL 11.2-15.7 HEMATOCRIT (BEAKER) (test zvmj=764) 35.8 % 34.1-44.9 MEAN CORPUSCULAR VOLUME (BEAKER) (test ecox=901) 94.7 fL 79.4-94.8 MEAN CORPUSCULAR HEMOGLOBIN (BEAKER) (test 29.4 pg 25.6-32.2 cauo=424) MEAN CORPUSCULAR HEMOGLOBIN CONC (BEAKER) (test 31.0 GM/DL 32.2-35.5 tuhn=295) RED CELL DISTRIBUTION WIDTH (BEAKER) (test 11.9 % 11.7-14.4 cthx=513) PLATELET COUNT (BEAKER) (test hukw=000) 431 K/CU MM 150-450 MEAN PLATELET VOLUME (BEAKER) (test yrlr=850) 9.1 fL 9.4-12.3 NUCLEATED RED BLOOD CELLS (BEAKER) (test 0 /100 WBC 0-0 begj=957) NEUTROPHILS RELATIVE PERCENT (BEAKER) (test 70 % euhc=727) LYMPHOCYTES RELATIVE PERCENT (BEAKER) (test 17 % memm=565) MONOCYTES RELATIVE PERCENT (BEAKER) (test 10 % fefk=562) EOSINOPHILS RELATIVE PERCENT (BEAKER) (test 3 % dfga=590) BASOPHILS RELATIVE PERCENT (BEAKER) (test 0 % tuqz=872) NEUTROPHILS ABSOLUTE COUNT (BEAKER) (test 6.54 K/ L 1.56-6.13 olwz=260) LYMPHOCYTES ABSOLUTE COUNT (BEAKER) (test 1.56 K/ L 1.18-3.74 kpua=737) MONOCYTES ABSOLUTE COUNT (BEAKER) (test 0.94 K/ L 0.24-0.36 sxeo=042) EOSINOPHILS ABSOLUTE COUNT (BEAKER) (test 0.25 K/ L 0.04-0.36 ynwr=541) BASOPHILS ABSOLUTE COUNT (BEAKER) (test 0.04 K/ L 0.01-0.08 ejnz=164) IMMATURE GRANULOCYTES-RELATIVE PERCENT (BEAKER) 0 % 0-1 (test ktew=9499) POCT-GLUCOSE [id number] 21:14:00 Test Item Value Reference Range Comments POC-GLUCOSE METER (BEAKER) 117 mg/dL 70-110 TESTED AT [address] (test zqfc=2564) [place] [address] POCT-GLUCOSE [id number] 16:25:00 Test Item Value Reference Range Comments POC-GLUCOSE METER (BEAKER) 132 mg/dL 70-110 TESTED AT [address] (test lrwp=6702) [place] [id number] BASIC METABOLIC [id number] 12:48:00 Test Item Value Reference Range Comments SODIUM (BEAKER) (test 132 meq/L 136-145 gzus=796) POTASSIUM (BEAKER) (test 4.5 meq/L 3.5-5.1 fzxv=855) CHLORIDE (BEAKER) (test 102 meq/L 98-107 ubfe=424) CO2 (BEAKER) (test 24 meq/L 22-29 dbqg=878) BLOOD UREA NITROGEN 14 mg/dL 7-21 (BEAKER) (test vfyb=270) CREATININE (BEAKER) (test 0.74 mg/dL 0.57-1.25 mxjk=508) GLUCOSE RANDOM (BEAKER) 105 mg/dL 70-105 (test emoj=210) CALCIUM (BEAKER) (test 8.9 mg/dL 8.4-10.2 wvme=357) EGFR (BEAKER) (test 76 mL/min/1.73 sq m ESTIMATED GFR IS NOT tiee=9381) ACCURATE CREATININE CLEARANCE IN PREDICTING GLOMERULAR FILTRATION RATE. ESTIMATED GFR IS NOT APPLICABLE FOR DIALYSIS PATIENTS. POCT-GLUCOSE [id number] 12:01:00 Test Item Value Reference Range Comments POC-GLUCOSE METER (BEAKER) 144 mg/dL 70-110 TESTED AT [facility] [address] [facility] (test kdqv=3796) [facility] [address] [id number] 11:45:00 Test Item Value Reference Range Comments PHOSPHORUS (BEAKER) (test uhpx=761) 2.6 mg/dL 2.3-4.7 [id number] 11:45:00 Test Item Value Reference Range Comments MAGNESIUM (BEAKER) (test rydz=322) 1.6 mg/dL 1.6-2.6 POCT-GLUCOSE [id number] 08:32:00 Test Item Value Reference Range Comments POC-GLUCOSE METER (BEAKER) 145 mg/dL 70-110 TESTED AT [address] (test rhzx=2453) [facility] [address] TSH/FREE T4 IF [id number] 06:32:00 Test Item Value Reference Range Comments THYROID STIMULATING HORMONE (BEAKER) (test 1.61 uIU/mL 0.35-4.94 jeny=332) CALCIUM, [id number] 05:02:00 Test Item Value Reference Range Comments CALCIUM IONIZED (BEAKER) (test dicg=888) 1.09 mmol/L 1.12-1.27 PH, BLOOD (BEAKER) (test qnhs=3076) 7.45 CBC W/PLT COUNT & AUTO [id number] 04:25:00 Test Item Value Reference Range Comments WHITE BLOOD CELL COUNT (BEAKER) (test spce=199) 9.4 K/ L 3.5-10.5 RED BLOOD CELL COUNT (BEAKER) (test dnyl=509) 3.64 M/ L 3.93-5.22 HEMOGLOBIN (BEAKER) (test ubhu=498) 10.8 GM/DL 11.2-15.7 HEMATOCRIT (BEAKER) (test mhsl=266) 33.8 % 34.1-44.9 MEAN CORPUSCULAR VOLUME (BEAKER) (test vxfe=609) 92.9 fL 79.4-94.8 MEAN CORPUSCULAR HEMOGLOBIN (BEAKER) (test 29.7 pg 25.6-32.2 nrva=974) MEAN CORPUSCULAR HEMOGLOBIN CONC (BEAKER) (test 32.0 GM/DL 32.2-35.5 ejyj=394) RED CELL DISTRIBUTION WIDTH (BEAKER) (test 11.9 % 11.7-14.4 saod=896) PLATELET COUNT (BEAKER) (test ottw=737) 433 K/CU MM 150-450 MEAN PLATELET VOLUME (BEAKER) (test nnys=196) 9.0 fL 9.4-12.3 NUCLEATED RED BLOOD CELLS (BEAKER) (test 0 /100 WBC 0-0 qohz=334) NEUTROPHILS RELATIVE PERCENT (BEAKER) (test 68 % tuqs=408) LYMPHOCYTES RELATIVE PERCENT (BEAKER) (test 19 % vrwi=521) MONOCYTES RELATIVE PERCENT (BEAKER) (test 10 % akis=636) EOSINOPHILS RELATIVE PERCENT (BEAKER) (test 2 % whei=196) BASOPHILS RELATIVE PERCENT (BEAKER) (test 1 % fvwq=721) NEUTROPHILS ABSOLUTE COUNT (BEAKER) (test 6.42 K/ L 1.56-6.13 lwow=579) LYMPHOCYTES ABSOLUTE COUNT (BEAKER) (test 1.75 K/ L 1.18-3.74 olcg=466) MONOCYTES ABSOLUTE COUNT (BEAKER) (test 0.94 K/ L 0.24-0.36 ozny=705) EOSINOPHILS ABSOLUTE COUNT (BEAKER) (test 0.22 K/ L 0.04-0.36 gjnl=996) BASOPHILS ABSOLUTE COUNT (BEAKER) (test 0.05 K/ L 0.01-0.08 mxsz=136) IMMATURE GRANULOCYTES-RELATIVE PERCENT (BEAKER) 1 % 0-1 (test qkrc=0272) POCT-GLUCOSE [id number] 22:49:00 Test Item Value Reference Range Comments POC-GLUCOSE METER (BEAKER) 129 mg/dL 70-110 TESTED AT [address] (test ixoh=7647) [facility] [address] POCT-GLUCOSE [id number] 18:19:00 Test Item Value Reference Range Comments POC-GLUCOSE METER (BEAKER) 107 mg/dL 70-110 TESTED AT [address] (test bctl=5029) [facility] [address] POCT-GLUCOSE [id number] 12:36:00 Test Item Value Reference Range Comments POC-GLUCOSE METER (BEAKER) 128 mg/dL 70-110 TESTED AT [facility] [address] [facility] (test lbbg=5152) [facility] [address] POCT-GLUCOSE [id number] 08:29:00 Test Item Value Reference Range Comments POC-GLUCOSE METER (BEAKER) 110 mg/dL 70-110 TESTED AT [facility] [address] [facility] (test vimo=3041) [facility] [address] [id number] 04:57:00 Test Item Value Reference Range Comments PHOSPHORUS (BEAKER) (test cxdw=394) 4.2 mg/dL 2.3-4.7 [id number] 04:57:00 Test Item Value Reference Range Comments MAGNESIUM (BEAKER) (test igyb=197) 2.4 mg/dL 1.6-2.6 BASIC METABOLIC [id number] 04:57:00 Test Item Value Reference Range Comments SODIUM (BEAKER) (test 134 meq/L 136-145 nlxz=637) POTASSIUM (BEAKER) (test 4.5 meq/L 3.5-5.1 jsdq=379) CHLORIDE (BEAKER) (test 103 meq/L 98-107 zvck=053) CO2 (BEAKER) (test 22 meq/L 22-29 vwhn=539) BLOOD UREA NITROGEN 13 mg/dL 7-21 (BEAKER) (test vlnu=410) CREATININE (BEAKER) (test 0.79 mg/dL 0.57-1.25 kpxc=546) GLUCOSE RANDOM (BEAKER) 106 mg/dL 70-105 (test umyj=112) CALCIUM (BEAKER) (test 9.4 mg/dL 8.4-10.2 mhxf=035) EGFR (BEAKER) (test 70 mL/min/1.73 sq m ESTIMATED GFR IS NOT muyx=0237) ACCURATE CREATININE CLEARANCE IN PREDICTING GLOMERULAR FILTRATION RATE. ESTIMATED GFR IS NOT APPLICABLE FOR DIALYSIS PATIENTS. CBC W/PLT COUNT & AUTO [id number] 04:19:00 Test Item Value Reference Range Comments WHITE BLOOD CELL COUNT (BEAKER) (test bguo=690) 8.3 K/ L 3.5-10.5 RED BLOOD CELL COUNT (BEAKER) (test pxwm=475) 4.06 M/ L 3.93-5.22 HEMOGLOBIN (BEAKER) (test isnr=713) 12.1 GM/DL 11.2-15.7 HEMATOCRIT (BEAKER) (test mhfy=106) 38.5 % 34.1-44.9 MEAN CORPUSCULAR VOLUME (BEAKER) (test ywmv=639) 94.8 fL 79.4-94.8 MEAN CORPUSCULAR HEMOGLOBIN (BEAKER) (test 29.8 pg 25.6-32.2 ggyf=106) MEAN CORPUSCULAR HEMOGLOBIN CONC (BEAKER) (test 31.4 GM/DL 32.2-35.5 jhyh=614) RED CELL DISTRIBUTION WIDTH (BEAKER) (test 11.9 % 11.7-14.4 lbgw=363) PLATELET COUNT (BEAKER) (test toot=949) 429 K/CU MM 150-450 MEAN PLATELET VOLUME (BEAKER) (test pked=542) 8.8 fL 9.4-12.3 NUCLEATED RED BLOOD CELLS (BEAKER) (test 0 /100 WBC 0-0 omlw=716) NEUTROPHILS RELATIVE PERCENT (BEAKER) (test 65 % elpu=460) LYMPHOCYTES RELATIVE PERCENT (BEAKER) (test 21 % ilpv=232) MONOCYTES RELATIVE PERCENT (BEAKER) (test 10 % yrqy=380) EOSINOPHILS RELATIVE PERCENT (BEAKER) (test 3 % luxl=939) BASOPHILS RELATIVE PERCENT (BEAKER) (test 1 % srkq=406) NEUTROPHILS ABSOLUTE COUNT (BEAKER) (test 5.39 K/ L 1.56-6.13 rvlv=687) LYMPHOCYTES ABSOLUTE COUNT (BEAKER) (test 1.77 K/ L 1.18-3.74 mcup=450) MONOCYTES ABSOLUTE COUNT (BEAKER) (test 0.83 K/ L 0.24-0.36 phuz=413) EOSINOPHILS ABSOLUTE COUNT (BEAKER) (test 0.21 K/ L 0.04-0.36 cwin=732) BASOPHILS ABSOLUTE COUNT (BEAKER) (test 0.05 K/ L 0.01-0.08 vznr=005) IMMATURE GRANULOCYTES-RELATIVE PERCENT (BEAKER) 0 % 0-1 (test jmnx=0306) POCT-GLUCOSE [id number] 22:12:00 Test Item Value Reference Range Comments POC-GLUCOSE METER (BEAKER) 149 mg/dL 70-110 TESTED AT [address] (test pqry=6117) [place] [address] [address] BRAIN WITHOUT IV CONTRAST - [id number] 21:28:00Reason for exam:-> reevaluation of SDHFINAL REPORT CT Head without contrast CLINICAL HISTORY: SDH TECHNIQUE: Contiguous axial images through the head without contrast on the portable CT unit. This exam was performed according to the departmental dose optimization program which includes automated exposure control, adjustment of the mA and/or kV according to the patient size, and/or use of an iterative reconstructiontechnique. COMPARISON: 02/20/2018 FINDINGS: The right lateral cerebral [...] hematoma has decreased in size. Signed: Cholo Peppereport Verified Date/Time: 03/02/2018 21:28:16 Reading Location: [facility] Radiology Reading Room POCT-GLUCOSE [id number] 17:07:00 Test Item Value Reference Range Comments POC-GLUCOSE METER (BEAKER) 108 mg/dL 70-110 TESTED AT [address] (test wlyq=7159) [place] [address] POCT-GLUCOSE [id number] 12:10:00 Test Item Value Reference Range Comments POC-GLUCOSE METER (BEAKER) 99 mg/dL 70-110 TESTED AT [address] (test kaag=0765) [place] [address] EEG AWAKE AND [id number] 11:05:00Reason for exam:->AMSDate of EE03/02DATE OF REPORT: 03/02/18ACC: [id number] Number: [id number] Location: ICUStart time: 9:04Stop time: 9:25ICD-10: R56.9CPT Code: 23430 HISTORY: Ms. Haywood is a 78 y/o female with Parkinson's Disease, s/p R lateral SDH, now with twitching of left face MEDICATIONS THAT COULD AFFECTEEG: Rupert TECHNICAL SUMMARY: This is a digital video-EEG [...] the right frontotemporal region (Fp2, F4, FT10, T8 ), along with attenuation of higher frequencies in these regions. The background activity is reactive to external stimulation. Drowsiness was characterized by alpha attenuation and increased frontocentral theta; no features of stage II sleep. EVENTS: No events SIGNIFICANT ELECTROCARDIOGRAM EVENTS: NoneHYPERVENTILATION: Not performedPHOTIC STIMULATION: Photic stimulation was done from 3-30 Hz; photoparoxysmal responses were absent. There is bilateral driving at 9, 12 and 15 Hz. IMPRESSION: Abnormal awake and drowsy EEG due to focal slowing in the right frontotemporal region CLINICAL CORRELATION:Continuous focal slowing is a nonspecific finding which can be associated with underlying structuralabnormality of the involved region (right lateral SDH in this patient). The absence of epileptiform abnormality does not necessarily preclude the clinical diagnosis of epilepsy for the event(s) of interest. Radha Dukes MD, PhDEpilepsy Fellow Dav Quezada MD Attending Neurophysiologist Electronically signed by: DAV QUEZADA MD on 2017 11:05 AMPOCT-GLUCOSE [id number] 10:07:00 Test Item Value Reference Range Comments POC-GLUCOSE METER (BEAKER) 105 mg/dL 70-110 TESTED AT [facility] [address] [place] [address] (test mgvp=3812) [facility] [address] PROTHROMBIN [id number] 05:04:00 Test Item Value Reference Range Comments PROTIME (BEAKER) (test bwgg=612) 14.1 seconds 11.7-14.7 INR (BEAKER) (test usih=945) 1.1 <=5.9 RECOMMENDED COUMADIN/WARFARIN INR THERAPY RANGESSTANDARD DOSE: 2.0 - 3.0 Includes: PROPHYLAXIS forvenous thrombosis, systemic embolization; TREATMENT for venous thrombosis and/or pulmonary embolus.HIGH RISK: Target INR is 2.5-3.5 for patients with mechanical heart valves.POCT-GLUCOSE [id number] 11:36:00 Test Item Value Reference Range Comments POC-GLUCOSE METER (BEAKER) 114 mg/dL 70-110 TESTED AT [place] [id number] [facility] (test cbrx=0612) [place] [address] POCT-GLUCOSE [id number] 08:57:00 Test Item Value Reference Range Comments POC-GLUCOSE METER (BEAKER) 138 mg/dL 70-110 TESTED AT [address] (test xtau=7220) [place] [address] [id number] 05:46:00 Test Item Value Reference Range Comments POTASSIUM (BEAKER) (test erom=380) 4.2 meq/L 3.5-5.1 Check Serum Potassium level 2 hours after oral potassium replacement completed or 30 min after intravenous potassium replacement.[id number] 05:46:00 Test Item Value Reference Range Comments MAGNESIUM (BEAKER) (test tzux=934) 2.2 mg/dL 1.6-2.6 Check Serum Potassium level 2 hours after oral potassium replacement completed or 30 min after intravenous potassium replacement.[id number] 05:46:00 Test Item Value Reference Range Comments PHOSPHORUS (BEAKER) (test dmrx=491) 2.6 mg/dL 2.3-4.7 Check Serum Potassium level 2 hours after oral potassium replacement completed or 30 min after intravenous potassium replacement.BASIC METABOLIC [id number] 05:46:00 Test Item Value Reference Range Comments SODIUM (BEAKER) (test 136 meq/L 136-145 lxia=568) POTASSIUM (BEAKER) (test 4.2 meq/L 3.5-5.1 ampw=252) CHLORIDE (BEAKER) (test 106 meq/L 98-107 ombc=607) CO2 (BEAKER) (test 25 meq/L 22-29 zwlz=666) BLOOD UREA NITROGEN 11 mg/dL 7-21 (BEAKER) (test wpqg=108) CREATININE (BEAKER) (test 0.71 mg/dL 0.57-1.25 lavi=723) GLUCOSE RANDOM (BEAKER) 105 mg/dL 70-105 (test htyu=025) CALCIUM (BEAKER) (test 8.2 mg/dL 8.4-10.2 knsf=333) EGFR (BEAKER) (test 79 mL/min/1.73 sq m ESTIMATED GFR IS NOT nout=2692) ACCURATE CREATININE CLEARANCE IN PREDICTING GLOMERULAR FILTRATION RATE. ESTIMATED GFR IS NOT APPLICABLE FOR DIALYSIS PATIENTS. Check Serum Potassium level 2 hours after oral potassium replacement completed or 30 min after intravenous potassium replacement.CBC W/PLT COUNT & AUTO [id number] 04:57:00 Test Item Value Reference Range Comments WHITE BLOOD CELL COUNT (BEAKER) (test dsfa=571) 8.1 K/ L 3.5-10.5 RED BLOOD CELL COUNT (BEAKER) (test jgwx=632) 3.91 M/ L 3.93-5.22 HEMOGLOBIN (BEAKER) (test acli=289) 11.8 GM/DL 11.2-15.7 HEMATOCRIT (BEAKER) (test bavn=408) 36.6 % 34.1-44.9 MEAN CORPUSCULAR VOLUME (BEAKER) (test vsjf=598) 93.6 fL 79.4-94.8 MEAN CORPUSCULAR HEMOGLOBIN (BEAKER) (test 30.2 pg 25.6-32.2 jeay=311) MEAN CORPUSCULAR HEMOGLOBIN CONC (BEAKER) (test 32.2 GM/DL 32.2-35.5 ocdg=413) RED CELL DISTRIBUTION WIDTH (BEAKER) (test 12.3 % 11.7-14.4 acgy=226) PLATELET COUNT (BEAKER) (test vgst=767) 398 K/CU MM 150-450 MEAN PLATELET VOLUME (BEAKER) (test aibb=842) 9.3 fL 9.4-12.3 NUCLEATED RED BLOOD CELLS (BEAKER) (test 0 /100 WBC 0-0 pixh=459) NEUTROPHILS RELATIVE PERCENT (BEAKER) (test 63 % jner=452) LYMPHOCYTES RELATIVE PERCENT (BEAKER) (test 24 % ohrp=149) MONOCYTES RELATIVE PERCENT (BEAKER) (test 10 % dcrs=363) EOSINOPHILS RELATIVE PERCENT (BEAKER) (test 3 % fqpz=446) BASOPHILS RELATIVE PERCENT (BEAKER) (test 1 % bbce=648) NEUTROPHILS ABSOLUTE COUNT (BEAKER) (test 5.08 K/ L 1.56-6.13 wpio=301) LYMPHOCYTES ABSOLUTE COUNT (BEAKER) (test 1.90 K/ L 1.18-3.74 ludj=469) MONOCYTES ABSOLUTE COUNT (BEAKER) (test 0.81 K/ L 0.24-0.36 owyz=815) EOSINOPHILS ABSOLUTE COUNT (BEAKER) (test 0.24 K/ L 0.04-0.36 ulow=647) BASOPHILS ABSOLUTE COUNT (BEAKER) (test 0.04 K/ L 0.01-0.08 jyqi=612) IMMATURE GRANULOCYTES-RELATIVE PERCENT (BEAKER) 0 % 0-1 (test rcah=7814) POCT-GLUCOSE [id number] 21:37:00 Test Item Value Reference Range Comments POC-GLUCOSE METER (BEAKER) 135 mg/dL 70-110 TESTED AT [address] (test jnan=2045) [facility] [address] POCT-GLUCOSE [id number] 17:34:00 Test Item Value Reference Range Comments POC-GLUCOSE METER (BEAKER) 111 mg/dL 70-110 TESTED AT [address] (test eudb=8224) [facility] [address] POCT-GLUCOSE [id number] 12:40:00 Test Item Value Reference Range Comments POC-GLUCOSE METER (BEAKER) 110 mg/dL 70-110 TESTED AT [address] (test eppx=2401) [facility] [address] [id number] 05:07:00 Test Item Value Reference Range Comments PHOSPHORUS (BEAKER) (test uhmy=035) 2.7 mg/dL 2.3-4.7 [id number] 05:07:00 Test Item Value Reference Range Comments MAGNESIUM (BEAKER) (test iutj=793) 2.3 mg/dL 1.6-2.6 BASIC METABOLIC [id number] 05:07:00 Test Item Value Reference Range Comments SODIUM (BEAKER) (test 138 meq/L 136-145 golv=090) POTASSIUM (BEAKER) (test 3.5 meq/L 3.5-5.1 elxc=631) CHLORIDE (BEAKER) (test 107 meq/L 98-107 khji=252) CO2 (BEAKER) (test 24 meq/L 22-29 xwsd=870) BLOOD UREA NITROGEN 12 mg/dL 7-21 (BEAKER) (test vsxs=617) CREATININE (BEAKER) (test 0.72 mg/dL 0.57-1.25 kngc=698) GLUCOSE RANDOM (BEAKER) 111 mg/dL 70-105 (test bsul=252) CALCIUM (BEAKER) (test 8.4 mg/dL 8.4-10.2 jwpg=157) EGFR (BEAKER) (test 78 mL/min/1.73 sq m ESTIMATED GFR IS NOT fuhi=3564) ACCURATE CREATININE CLEARANCE IN PREDICTING GLOMERULAR FILTRATION RATE. ESTIMATED GFR IS NOT APPLICABLE FOR DIALYSIS PATIENTS. CBC W/PLT COUNT & AUTO [id number] 04:35:00 Test Item Value Reference Range Comments WHITE BLOOD CELL COUNT (BEAKER) (test mbht=123) 8.9 K/ L 3.5-10.5 RED BLOOD CELL COUNT (BEAKER) (test olki=629) 3.82 M/ L 3.93-5.22 HEMOGLOBIN (BEAKER) (test brkn=273) 11.6 GM/DL 11.2-15.7 HEMATOCRIT (BEAKER) (test atxy=438) 35.4 % 34.1-44.9 MEAN CORPUSCULAR VOLUME (BEAKER) (test qymx=583) 92.7 fL 79.4-94.8 MEAN CORPUSCULAR HEMOGLOBIN (BEAKER) (test 30.4 pg 25.6-32.2 jjfs=479) MEAN CORPUSCULAR HEMOGLOBIN CONC (BEAKER) (test 32.8 GM/DL 32.2-35.5 yrwi=652) RED CELL DISTRIBUTION WIDTH (BEAKER) (test 12.2 % 11.7-14.4 mnhp=677) PLATELET COUNT (BEAKER) (test hhgq=363) 415 K/CU MM 150-450 MEAN PLATELET VOLUME (BEAKER) (test hunc=630) 9.7 fL 9.4-12.3 NUCLEATED RED BLOOD CELLS (BEAKER) (test 0 /100 WBC 0-0 auwa=509) NEUTROPHILS RELATIVE PERCENT (BEAKER) (test 68 % kcgz=111) LYMPHOCYTES RELATIVE PERCENT (BEAKER) (test 19 % hhxp=909) MONOCYTES RELATIVE PERCENT (BEAKER) (test 10 % xvve=368) EOSINOPHILS RELATIVE PERCENT (BEAKER) (test 2 % jkux=635) BASOPHILS RELATIVE PERCENT (BEAKER) (test 0 % mvkm=810) NEUTROPHILS ABSOLUTE COUNT (BEAKER) (test 6.08 K/ L 1.56-6.13 rcjv=802) LYMPHOCYTES ABSOLUTE COUNT (BEAKER) (test 1.70 K/ L 1.18-3.74 twiy=000) MONOCYTES ABSOLUTE COUNT (BEAKER) (test 0.86 K/ L 0.24-0.36 guua=791) EOSINOPHILS ABSOLUTE COUNT (BEAKER) (test 0.20 K/ L 0.04-0.36 oxcp=690) BASOPHILS ABSOLUTE COUNT (BEAKER) (test 0.03 K/ L 0.01-0.08 mttk=539) IMMATURE GRANULOCYTES-RELATIVE PERCENT (BEAKER) 0 % 0-1 (test tpum=3034) POCT-GLUCOSE [id number] 23:38:00 Test Item Value Reference Range Comments POC-GLUCOSE METER (BEAKER) 122 mg/dL 70-110 TESTED AT [address] (test seqd=4714) [place] [address] POCT-GLUCOSE [id number] 17:56:00 Test Item Value Reference Range Comments POC-GLUCOSE METER (BEAKER) 144 mg/dL 70-110 TESTED AT [address] (test inim=9371) [place] [address] [id number] 16:13:00 Test Item Value Reference Range Comments POTASSIUM (BEAKER) (test guvj=779) 3.9 meq/L 3.5-5.1 [id number] 16:13:00 Test Item Value Reference Range Comments MAGNESIUM (BEAKER) (test ueji=723) 2.3 mg/dL 1.6-2.6 POCT-GLUCOSE [id number] 12:30:00 Test Item Value Reference Range Comments POC-GLUCOSE METER (BEAKER) 109 mg/dL 70-110 TESTED AT [address] (test seut=4258) [place] [address] CT BRAIN WITHOUT IV CONTRAST - [id number] 07:31:00Reason for exam:-> interval exam, subdural hemorrhageFINAL REPORT CT head without contrast 02/20/2018 7:29 AM CLINICAL HISTORY: interval exam, subdural hemorrhage TECHNIQUE: Contiguous axial images through the head without contrast were obtained utilizing the portable CT unit. This examination was performed according to our departmental dose optimization program, which includes automated exposure control, adjustment of the mA and/or kV according to patient size, and/or use of iterated reconstruction technique. COMPARISON: None available FINDINGS: There is a right lateral hemispheric subdural hematoma measuring up to 10 mm in thickness. There is no remarkable mass effect. There is no intraparenchymal hemorrhage, mass, or hydrocephalus. There is mild microvascular ischemia in the supratentorial white matter. There is generalized parenchymal volume loss. There is right sphenoid sinusitis. The remaining paranasal sinuses and tympanomastoid cavities are clear. The skull is intact. IMPRESSION: Small volume right lateral hemisphericsubdural hematoma without remarkable mass effect. Chronic appearing microvascular and involutional changes. Sinusitis. Signed: Miah Tay MDReport Verified Date/Time: 2017 07:31:36 Reading Location: [address] Neuro Reading Room POCT- GLUCOSE [id number] 06:30:00 Test Item Value Reference Range Comments POC-GLUCOSE METER (BEAKER) 103 mg/dL 70-110 TESTED AT [address] (test hvnl=8831) [facility] [address] [id number] 04:41:00 Test Item Value Reference Range Comments PHOSPHORUS (BEAKER) (test dddi=035) 3.1 mg/dL 2.3-4.7 Once on admission and Daily AM afterwardsOnce on admission and Daily AM afterwardsOnce on admission and Daily AM [id number] 04:41:00 Test Item Value Reference Range Comments MAGNESIUM (BEAKER) (test sjon=610) 2.1 mg/dL 1.6-2.6 Once on admission and Daily AM afterwardsOnce on admission and Daily AM afterwardsOnce on admission and Daily AM afterwardsBASIC METABOLIC [id number] 04:41:00 Test Item Value Reference Range Comments SODIUM (BEAKER) (test 136 meq/L 136-145 ubsq=325) POTASSIUM (BEAKER) (test 3.1 meq/L 3.5-5.1 axoj=529) CHLORIDE (BEAKER) (test 105 meq/L 98-107 uzew=117) CO2 (BEAKER) (test 22 meq/L 22-29 zgcs=431) BLOOD UREA NITROGEN 13 mg/dL 7-21 (BEAKER) (test xmld=022) CREATININE (BEAKER) (test 0.71 mg/dL 0.57-1.25 srvh=574) GLUCOSE RANDOM (BEAKER) 92 mg/dL 70-105 (test axoh=003) CALCIUM (BEAKER) (test 8.4 mg/dL 8.4-10.2 wdbb=603) EGFR (BEAKER) (test 79 mL/min/1.73 sq m ESTIMATED GFR IS NOT drih=6092) ACCURATE CREATININE CLEARANCE IN PREDICTING GLOMERULAR FILTRATION RATE. ESTIMATED GFR IS NOT APPLICABLE FOR DIALYSIS PATIENTS. Once on admission and Daily AM afterwardsOnce on admission and Daily AM afterwardsOnce on admission and Daily AM afterwardsCBC (HEMOGRAM ONLY) 04:19:00 Test Item Value Reference Range Comments WHITE BLOOD CELL COUNT (BEAKER) (test icmq=155) 8.5 K/ L 3.5-10.5 RED BLOOD CELL COUNT (BEAKER) (test pjjw=801) 3.65 M/ L 3.93-5.22 HEMOGLOBIN (BEAKER) (test hvrv=323) 11.1 GM/DL 11.2-15.7 HEMATOCRIT (BEAKER) (test slzw=445) 34.0 % 34.1-44.9 MEAN CORPUSCULAR VOLUME (BEAKER) (test mkgj=156) 93.2 fL 79.4-94.8 MEAN CORPUSCULAR HEMOGLOBIN (BEAKER) (test 30.4 pg 25.6-32.2 vlaa=190) MEAN CORPUSCULAR HEMOGLOBIN CONC (BEAKER) (test 32.6 GM/DL 32.2-35.5 syed=354) RED CELL DISTRIBUTION WIDTH (BEAKER) (test 11.9 % 11.7-14.4 rhip=534) PLATELET COUNT (BEAKER) (test aydt=896) 380 K/CU MM 150-450 MEAN PLATELET VOLUME (BEAKER) (test zpxu=068) 9.2 fL 9.4-12.3 NUCLEATED RED BLOOD CELLS (BEAKER) (test 0 /100 WBC 0-0 bdov=637) HEPATIC FUNCTION [id number] 00:33:00 Test Item Value Reference Range Comments TOTAL PROTEIN (BEAKER) (test uyli=280) 6.4 gm/dL 6.0-8.3 ALBUMIN (BEAKER) (test mpak=2644) 3.7 g/dL 3.5-5.0 BILIRUBIN TOTAL (BEAKER) (test ujqj=770) 0.7 mg/dL 0.2-1.2 BILIRUBIN DIRECT (BEAKER) (test fnwm=582) 0.3 mg/dL 0.1-0.5 ALKALINE PHOSPHATASE (BEAKER) (test rntg=652) 91 U/L 40-150 AST (SGOT) (BEAKER) (test pzqc=791) 27 U/L 5-34 ALT (SGPT) (BEAKER) (test vwrh=557) 13 U/L 6-55 POCT-GLUCOSE [id number] 00:28:00 Test Item Value Reference Range Comments POC-GLUCOSE METER (BEAKER) 104 mg/dL 70-110 TESTED AT [facility] [address] [facility] (test mnbd=1836) [facility] [address] [id number] 00:05:00 Test Item Value Reference Range Comments PARTIAL THROMBOPLASTIN TIME (BEAKER) (test 32.0 seconds 22.5-36.0 nbiy=735) PROTHROMBIN [id number] 00:04:00 Test Item Value Reference Range Comments PROTIME (BEAKER) (test sdxu=306) 14.4 seconds 11.7-14.7 INR (BEAKER) (test kqle=589) 1.1 <=5.9 RECOMMENDED COUMADIN/WARFARIN INR THERAPY RANGESSTANDARD DOSE: 2.0 - 3.0 Includes: PROPHYLAXIS forvenous thrombosis, systemic embolization; TREATMENT for venous thrombosis and/or pulmonary embolus.HIGH RISK: Target INR is 2.5-3.5 for patients with mechanical heart valves.
--- OUTSIDE RECORDS SUMMARY | 2018-04-11 12:26 | XMS REPORT ---
[...] Z86.39 Active Problem Unsteady gait R26.81 Active Problem Parkinson disease G20 Active Problem Mixed stress and urge urinary N39.46 Active incontinence Problem Age related osteoporosis, M81.0 Active unspecified pathological fracture presence Problem Gastroesophageal reflux disease K21.9 Active without esophagitis Problem Dysphagia, unspecified type R13.10 Active Problem Primary insomnia F51.01 Active Medications No Known Medications Results No Known Results Summary Purpose eClinicalWorks Submission
--- NOTE | 2018-04-11 21:03 | OP ---
Date of Procedure: 04/11/2018 Surgeon: Evelyn Angulo MD Anesthesiologist: 1. Belgica Toussaint CRNA. 2. John Arredondo M.D. Preoperative Diagnosis: Nuclear sclerotic and posterior subcapsular cataract, right eye. Operation Performed: Phacoemulsification with intraocular lens implant, right eye. Anesthesia: Per cataract surgery. Complications: None. Description Of Procedure: In day surgery, the patient was prepped with Betadine and draped. A conju nctival incision was made in the inferior nasal quadrant with Jennifer scissors. A sub-Tenon block c onsisting of a 1:1 mixture of 2% Xylocaine and 0.25% bupivacaine was placed through the conjunctival incision with a blunt cannula. A Honan balloon was placed over the eye and the patient was transferr ed to the operating room. In the operating room the patient was prepped and draped in the usual sterile fashion for ophthalmic surgery. A lid speculum was placed in the right eye. Two paracentesis sites were made superiorly an d inferiorly in the limbal cornea. Viscoat was placed in the anterior chamber and a crescent blade w as used to make a corneal groove and tunnel, and a keratome was used to enter the anterior chamber. Provisc was placed in the anterior chamber and a 360 degree capsulotomy was performed with a cystitom e. The lens was hydrodissected with BSS and rotated freely. The lens was removed with a stop and ch op technique. A 12.38 phaco CDE was used to remove the lens. Residual cortex was removed with the i rrigation and aspiration. Provisc was placed in the capsular bag. A SN60WF +16.5 Lens was placed in the capsular bag without complications. Irrigation and aspiration was used to remove residual visco elastic. The paracentesis sites were hydrated with BSS. The wound and paracentesis sites were inspe cted and found to be watertight. Vigamox 0.07 cc was placed intracamerally at the end of the procedu re. The eye was irrigated with balanced salt solution. The eye was patched with a soft cotton patch and Diehl metal shield. The patient was returned to day surgery in good condition. Comments: Trace residual PSC remained at the end of the procedure. Discharge Instructions: Ms. Arredondo is discharged to home in good condition and is to follow up with Dr. Angulo in the morning. VALENTIN/ZAIDA Voice ID: [id number] Report ID: [id number]
== END 2018-04-11 10:55 | disposition home or self-care (01) ==
LOC: OR 08:02
PROVIDERS: ATTEND Ophthalmology Retina Specialist
PROC: 08RJ3JZ Replacement of Right Lens with Synthetic Substitute, Percutaneous Approach (ICD-10-PCS; principal; 2018-04-11 09:50)
DX: H25.11 Age-related nuclear cataract, right eye (principal); H25.041 Posterior subcapsular polar age-related cataract, right eye; G20 Parkinson's disease; I10 Essential (primary) hypertension; M81.0 Age-related osteoporosis without current pathological fracture; Z86.73 Personal history of transient ischemic attack (TIA), and cerebral infarction without residual deficits; Z80.9 Family history of malignant neoplasm, unspecified
CPT/HCPCS: 66984; J0171

== ENCOUNTER 2022-10-29 10:59 | Inpatient (IN) | payer OTHER ==
--- OUTSIDE RECORDS SUMMARY | 2022-10-29 11:06 | XMS REPORT | Continuity of Care Document ---
:1940 Author Organization [facility] t Address [address] [facility] [address] [place] [address] Care Team Providers Name Role Phone ZURDO NATION Primary Care Physician Unavailable ROSALBA SAWYER Attending Clinician Unavailable ZURDO NATION Attending Clinician Unavailable ZURDO NATION Attending Clinician Unavailable SHAHEEN COPE Attending Clinician Unavailable Shaheen Jenkins Attending Clinician HAMILTON RENTERIA Attending Clinician Unavailable Victor Manuel VARGAS, Paola Reed Attending Clinician Unavailable Terence Rich MD Attending Clinician Jaki Littlejohn MD Attending Clinician Lupillo Giles MD Attending Clinician LUPILLO GILES Attending Clinician Unavailable Zurdo Nation MD Attending Clinician Doctor Unassigned, [place] Attending Clinician Unavailable ZACHARY MAYO Attending Clinician Unavailable MARÍA GARCIA Attending Clinician Unavailable ADIEL FREEMAN Attending Clinician Unavailable Lupillo Giles MD Admitting Clinician LUPILLO GILES Admitting Clinician Unavailable ZACHARY MAYO Admitting Clinician Unavailable MARÍA GARCIA Admitting Clinician Unavailable ADIEL FREEMAN Admitting Clinician Unavailable Payers Payer Name Policy Type Policy Number Effective Date Expiration Date S ource [facility] MED [id number] 2021 ADVANTAGE CHOICE 00:00:00 PPO [facility] MEDICARE [id number] 2019 COMPLETE CHOICE 00:00:00 Problems Condition Condition Condition Status Onset Resolution Last Treating Co mments Source Name Details Category Date Date Treatment Clinician Date Fall, Fall, Disease Active 2021-07 Univers initial initial 08-13 [place] [facility] [place] Closed Closed Disease Active 2021-07 Overview: Univer s fracture fracture 08-13 Formattin ity of of right of right 00:00: g of this [place] as hip, hip, 00 note Medical initial initial might be Branch encounter encounter different from the original. 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 Essential Essential Disease Active [facility] hypertensi hypertensi 8-16 [place] kes on on 00:00: Medical 00 Center SDH SDH Disease Recurre [facility] (subdural (subdural nce 8-15 Luke s hematoma) hematoma) 00:00: Medi karl 00 Center Acute Acute Disease Recurre [facility] subdural subdural nce 8-05 [facility] hematoma hematoma 00:00: Medica l 00 Center Acute Acute Disease Recurre [facility] encephalop encephalop nce 8-05 Gosia kes athy athy 00:00: Medical 00 [place] Parkinson Parkinson Problem Active Com mon disease disease [facility] Thyroiditi Thyroiditi Problem Active C ommon s, s, Spirit unspecifie unspecifie - [facility]I d d [facility] Primary Primary Problem Active Common insomnia insomnia [facility] Age Age Problem Active Common related related Spirit osteoporos osteoporos - CHI is, is, St unspecifie unspecifie [place] kes d d Medical pathologic pathologic Ce nter al al fracture fracture presence presence Dysphagia, Dysphagia, Problem Active C ommon unspecifie unspecifie Sp coco d type d type [facility] Gastroesop Gastroesop Problem Active C ommon hageal hageal Spirit reflux reflux - CHI disease disease St without without [facility] esophagiti esophagiti Me dical [facility] Mixed Mixed Problem Active Common stress and stress and Sp coco urge urge - CHI urinary urinary St incontinen incontinen Gos[facility] kes ce [facility] [place] Iron Problem Active Common deficiency deficiency Sp coco [facility] Bilateral Bilateral Problem Active Com mon lower lower [facility] extremity extremity - CH I edema edema [facility] History of History of Problem Active C ommon hypothyroi hypothyroi Sp coco dism dism [facility] Weakness Weakness Problem Active Commo n [facility] Recent Recent Problem Active Common urinary urinary [facility] tract tract - CHI infection infection [facility] Subdural Subdural Problem Active Commo n hematoma, hematoma, Spir it acute acute [facility] Unsteady Unsteady Problem Active Commo n gait gait [facility] History of History of Problem Active C ommon breast breast Spirit cancer cancer [facility] Allergies, Adverse Reactions, Alerts Allergy Allergy Status Severity Reaction(s) Onset Inactive Treating Comm ents Source Name Type Date Date Clinician Aspirin Propensi Active Other - See 2017-07 BLEEDING Univers ty to comments ity of adverse 00:00: [place] reaction [address] [place] [address] s [place] ASPIRIN DRUG Active Other-Cmnt 2017-07 Unive rs INGREDI ity of 00:00: [address] Social History Social Habit Start Date Stop Date Quantity Comments Source History of Passive smoker University of tobacco use [facility] Exposure to 2022-06-20 2022-06-30 Not sure University SARS-CoV-2 00:00:00 16:12:00 [facility] (event) Branch Alcohol intake 2022-06-30 2022-06-30 Current University of 00:00:00 00:00:00 non-drinker of [facility] alcohol (finding) Branch Tobacco use and 2022-06-15 2022-06-15 Smokeless tobacco Un iversity of exposure 00:00:00 00:00:00 non-user [facility] Sex Assigned At [birth year] [facility] 00:00:[facility] Smoking Status Start Date Stop Date Source Never smoked tobacco [facility] Medications Ordered Filled Start Stop Current Ordering Indication Dosage Frequency Signature Comments Components Source Medication Medication Date Date Medication? Clinician (SIG) Name Name ergocalcife 2021-07- No [id number] Take 1 Univers rol, 08-24 capsule by ity of vitamin d2, 00:00: 05:59 [place] 1,250 mcg 00 :00 weekly for Medi karl (50,000 5 doses. Branch unit) capsule ergocalcife 2021-07- No [id number] Take 1 Univers rol, 08-24 capsule by ity of vitamin d2, 00:00: 05:59 [place] 1,250 mcg 00 :00 weekly for Medi karl (50,000 5 doses. Branch unit) capsule ergocalcife 2021-07- No [id number] Take 1 Univers rol, 08-24 capsule by ity of vitamin d2, 00:00: 05:59 mouth [place] 1,250 mcg 00 :00 weekly for Medi karl (50,000 5 doses. Branch unit) capsule ergocalcife 2021-07- No [id number] Take 1 Univers rol, 08-24 capsule by ity of vitamin d2, 00:00: 05:59 mouth [place] 1,250 mcg 00 :00 weekly for Medi karl (50,000 5 doses. Branch unit) capsule glycerin/mi 2021-07- No 225mL 225 mL, U nivers neral oil 1-30 11-30 Rectal, ity of (AGLO 00:15: 12:07 ONCE, 1 [place] ENEMA) 00 :00 dose, On Medical ([facility] ) Enem 225 06/16/ mL at 1815, Routine mirtazapine 2021-07 Yes [id number] 7.5mg Take 1 Univers 7.5 mg 1-30 tablet by ity of tablet 00:00: mouth at [place] 00 bedtime. [facility] Branch carbidopa-l 2021-07 Yes [id number] 1{tbl} Take 1 Univers evodopa 1-30 tablet by ity of 50-200 mg 00:00: mouth [place] SR tablet 00 bedtime. [facility] mirtazapine 2021-07 Yes [id number] 7.5mg Take 1 Univers 7.5 mg 1-30 tablet by ity of tablet 00:00: mouth at [place] 00 bedtime. [facility] 2021-07 Yes [id number] 1{tbl} Take 1 Univers evodopa 1-30 tablet by ity of 50-200 mg 00:00: mouth [place] SR tablet 00 bedtime. [facility] mirtazapine 2021-07 Yes [id number] 7.5mg Take 1 Univers 7.5 mg 1-30 tablet by ity of tablet 00:00: mouth at [place] 00 bedtime. [facility] 2021-07 Yes [id number] 1{tbl} Take 1 Univers evodopa 1-30 tablet by ity of 50-200 mg 00:00: mouth [place] SR tablet 00 bedtime. [facility] mirtazapine 2021-07 Yes [id number] 7.5mg Take 1 Univers 7.5 mg 1-30 tablet by ity of tablet 00:00: mouth at [place] 00 bedtime. [facility] 2021-07 Yes [id number] 1{tbl} Take 1 Univers evodopa 1-30 tablet by ity of 50-200 mg 00:00: mouth [place] SR tablet 00 bedtime. [facility] enoxaparin 2021-07- No [id number] 30mg inject 0.3 Univers 30 mg/0.3 1-30 12-26 mL under ity o f mL 00:00: 05:59 the skin [place] injection 00 :00 every 12 Medica l (twelve) Branch hours for 25 days. enoxaparin 2021-07- No [id number] 30mg inject 0.3 Univers 30 mg/0.3 1-30 12-26 mL under ity o f mL 00:00: 05:59 the skin [place] injection 00 :00 every 12 Medica l (twelve) Branch hours for 25 days. enoxaparin 2021-07- No [id number] 30mg inject 0.3 Univers 30 mg/0.3 1-30 12-26 mL under ity o f mL 00:00: 05:59 the skin [place] injection 00 :00 every 12 Medica l (twelve) Branch hours for 25 days. enoxaparin 2021-07 No [id number] 30mg inject 0.3 Univers 30 mg/0.3 130 12-26 mL under ity o f mL 00:00: 05:59 the skin [place] injection 00 :00 every 12 Medica l (twelve) Branch hours for 25 days. acetaminoph 2021-07 No [id number] 1{tbl} Take 1 U nivers en-codeine 30 12-08 tablet by ity of (TYLENOL-CO 00:00: 05:59 [place] DEINE #3) 00 :00 every 6 Medical 300-30 mg (six) Branch tablet hours as needed for Pain (scale 4-6) for up to 7 days. Indication s: acute pain acetaminoph 2021-07 No [id number] 1{tbl} Take 1 U nivers en-codeine 30 06-25 tablet by ity of (TYLENOL-CO 00:00: 05:59 [place] DEINE #3) 00 :00 every 6 Medical 300-30 mg (six) Branch tablet hours as needed for Pain (scale 4-6) for up to 7 days. Indication s: acute pain ergocalcife 2021-07 Yes [id number] 50,000 Un jennifer rol 1-29 Units, ity of (vitamin 15:31: Oral, [place] d2) 39 QWEEKLY, Medical (CALCIFEROL First dose Br anch ) capsule on Wed 50,000 06/16/22 Units at 0945, Until Discontinu ed, Routine lactulose 2021-07 Yes 30mL 30 mL, Univer s (CEPHULAC) 08-16 Oral, BID, ity of solution 30 14:30: First dose [place] mL 00 (after Medical last Branch modificati on) on Wed06/16/22 at 0830, Until Discontinu ed, Routine polyethylen 2021-07 Yes 17g 17 g, Unive rs e glycol 08-16 Oral, BID, ity o f 3350 powder 02:00: First dose [place] 17 g 00 on Wed06/15/22 Branch at 2000, Until Discontinu ed, Routine polyethylen 2021-07 Yes 17g 17 g, Unive rs e glycol 08-16 Oral, BID, ity o f 3350 powder 02:00: First dose [place] 17 g 00 on Wed Medical 06/15/22 Branch at 1999, Until Discontinu ed, Routine lactulose 2021-07 Yes 15mL 15 mL, Univer s (CEPHULAC) 08-15 Oral, BID, ity of solution 15 22:20: First dose [place] mL 00 (after Medical last Branch modificati on) on Wed06/15/22 at 1630, Until Discontinu ed, Routine lactulose 2021-07- No 15mL 15 mL, Unive rs (CEPHULAC) 08-15 Oral, BID, it y of solution 15 22:20: 14:28 First dose [place] mL 00 :38 (after Medical last Branch modificati on) on Wed06/15/22 at 1630, Until Discontinu ed, Routine enoxaparin 2021-07 No 30mg 30 mg, Univ ers (LOVENOX) 08-15 Subcutaneo ity of injection 02:00: 01:59 [place], Q12H, [place] 30 mg 00 :00 56 doses, Medical First dose Branch on 06/14/22 at 1999, Last dose on 07/12/22 at 0800, Routine enoxaparin 2021-07 No 30mg 30 mg, Univ ers (LOVENOX) 08-15 Subcutaneo ity of injection 02:00: 01:59 [place], Q12H, [place] 30 mg 00 :00 56 doses, Medical First dose Branch on 06/14/22 at 1999, Last dose on 07/12/22 at 0800, Routine ceFAZolin 2021-07 No 2000mg 2 g (2,000 Univers in 0.9% 08-14 mg), ity of sodium 16:15: 00:42 Intravenou [place] chloride 00 :00 s, Q8H Medical (ANCEF) 2 ABX, 2 Branch gram/100 mL doses, RTU 2 g First dose on 06/14/22 at 1015, Last dose on 06/14/22 at 1815, Administer over 30 Minutes, 100 mL
Reas on for Anti-Infec tive: Surgical Prophylaxi s
Surgi karl Prophylaxi s: Orthopaedi c
Durat ion of therapy: within 24 hours of surgery omeprazole 2021-07 Yes 40mg 40 mg, Unive rs (PRILOSEC) 1- Oral, ity of capsule 40 15:00: DAILY, [place] mg 00 First dose Medical on [facility] 06/14/22 at 0900, Until Discontinu ed, Routine omeprazole 2021-07 Yes 40mg 40 mg, Unive rs (PRILOSEC) - Oral, ity of capsule 40 15:00: DAILY, [place] mg 00 First dose Medical on [facility] 06/14/22 at 0900, Until Discontinu ed, Routine melatonin 2021-07 Yes 3mg 3 mg, Univers (MELATIN) - Oral, QHS, ity of tablet 3 mg 03:00: First dose [place] 00 on [facility] 06/13/22 Branch at 2100, Until Discontinu ed, Routine carbidopa-l 2021-07 Yes 1{tbl} 1 tablet, Univers evodopa - Oral, QHS, ity of (SINEMET CR 03:00: First dose [place] 50/200) 00 on [facility] 50-200 mg 06/13/22 Branch tablet 1 at 2100, tablet Until Discontinu ed, Routine melatonin 2021-07 Yes 3mg 3 mg, Univers (MELATIN) - Oral, QHS, ity of tablet 3 mg 03:00: First dose [place] 00 on [facility] 06/13/22 Branch at 2100, Until Discontinu ed, Routine carbidopa-l 2021-07 Yes 1{tbl} 1 tablet, Univers evodopa - Oral, QHS, ity of (SINEMET CR 03:00: First dose [place] 50/200) 00 on [facility] 50-200 mg 06/13/22 Branch tablet 1 at 2100, tablet Until Discontinu ed, Routine docusate 2021-07 Yes 100mg 100 mg, Unive rs (COLACE) - Oral, ity of capsule 100 02:00: Q12H, [place] mg 00 First dose Medical on [facility] 06/13/22 at 2000, Until Discontinu ed, Routine docusate 2021-07 Yes 100mg 100 mg, Unive rs (COLACE) - Oral, ity of capsule 100 02:00: Q12H, [place] mg 00 First dose Medical on [facility] Branch 06/13/22 at 2000, Until Discontinu ed, Routine lactated 2021-07- No 1000mL at 42 Unive rs ringers IV 08-14 11-28 mL/hr, ity of infusion 02:00: 19:48 1,000 mL, [place] as 1,000 mL 00 :04 IV Medical Infusion, Branch CONTINUOUS , Starting on 06/13/22 at 2000, Until 06/15/22 at 1348, Routine HYDROcodone 2021-07 Yes 1{tbl} 1 tablet, Univers -acetaminop 08-14 Oral, ity of hen (NORCO 01:42: Q4HPRN, [place] 5) 5-325 mg 38 Starting Medi karl tablet 1 on [facility] Branch tablet 06/13/22 at 1942, Until Discontinu ed, Routine, Pain (scale 7-10) HYDROcodone 2021-07 Yes 1{tbl} 1 tablet, Univers -acetaminop 08-14 Oral, ity of hen (NORCO 01:42: Q4HPRN, [place] 5) 5-325 mg 38 Starting Medi karl tablet 1 on [facility] Branch tablet 06/13/22 at 1942, Until Discontinu ed, Routine, Pain (scale 7-10) traMADoL 2021-07 Yes 50mg 50 mg, Univers (ULTRAM) -27 Oral, ity of tablet 50 01:42: Q6HPRN, [place] mg 34 Starting Medical on [facility] Branch 06/13/22 at 1942, Until Discontinu ed, Routine, Pain (scale 4-6) traMADoL 2021-07 Yes 50mg 50 mg, Univers (ULTRAM) -27 Oral, ity of tablet 50 01:42: Q6HPRN, [place] mg 34 Starting Medical on [facility] Branch 06/13/22 at 1942, Until Discontinu ed, Routine, Pain (scale 4-6) acetaminoph 2021-07 Yes 650mg 650 mg, Un jennifer en 08-14 Oral, ity of (TYLENOL) 01:42: Q6HPRN, [place] tablet 650 30 Starting Medic al mg on [facility] Branch 06/13/22 at 1942, Until Discontinu ed, Routine, Pain (scale 1-3), Pain Scale 1-3 Or Headache acetaminoph 2021-07 Yes 650mg 650 mg, Un jennifer en 08-14 Oral, ity of (TYLENOL) 01:42: Q6HPRN, [place] tablet 650 30 Starting Medic al mg on [facility] Branch 06/13/22 at 1942, Until Discontinu ed, Routine, Pain (scale 1-3), Pain Scale 1-3 Or Headache morpHINE (2 2021-07- No 2mg 2 mg, Slow Univers mg/mL) 08-13 IV Push, ity of injection 2 23:15: 23:06 ONCE, 1 [place] mg 00 :00 dose, On Medical [facility] Branch 06/13/22 at 1715, STAT iopamidol 2021-07- No [id number] 64mL 64 mL, Un jennifer (ISOVUE 08-13 Intravenou ity o f 370-500 mL) 21:15: 20:18 s, ONCE, 1 [place] injection 00 :00 dose, On Medica l 64 mL [facility] 06/13/22 at 1515, Routine morpHINE (2 2021-07- No 2mg 2 mg, Slow Univers mg/mL) 08-13 IV Push, ity of injection 2 20:00: 19:25 ONCE, 1 [place] mg 00 :00 dose, On Medical [facility] 06/13/22 at 1400, STAT NaCl 0.9% 2021-07- No 500mL at 999 Univ ers (NS) bolus 08-13 mL/hr, 500 it y of infusion 19:45: 19:25 mL, IV [place] 500 mL 00 :00 Piggyback, Medical ONCE, 1 Branch dose, On [facility] 06/13/22 at 1345, STAT ondansetron 2021-07- No 4mg 4 mg, Slow Univers (ZOFRAN 08-13 IV Push, ity of (PF)) 19:30: 19:25 ONCE, 1 [place] injection 4 00 :00 dose, On Medi karl mg [facility] Branch 06/13/22 at 1330, MARCIAL CARBIDOPA-L 2021-0 Yes [id number] TAKE 1 Univers EVODOPA 6-03 TABLET BY ity of 50-200 mg 00:00: MOUTH [place] SR tablet 00 EVERY Medical NIGHT AT [facility] Yes [id number] TAKE 1 Univers EVODOPA 6-03 TABLET BY ity of 50-200 mg 00:00: MOUTH [place] SR tablet 00 EVERY Medical NIGHT AT [facility] 2022- No [id number] TAKE 1 Univers EVODOPA 6-03 11-30 TABLET BY ity of 50-200 mg 00:00: 00:00 MOUTH [place] SR tablet 00 :00 EVERY Medical NIGHT AT [facility] 2021- No [id number] 1{tbl} Take 1 Univers evodopa 3-07 06-03 tablet by ity of 50-200 mg 00:00: 00:00 mouth at [place] SR tablet 00 :00 bedtime. [facility] Yes [id number] TAKE 1 Univers EVODOPA 2-11 TABLET BY ity of 50-200 mg 00:00: MOUTH [place] SR tablet 00 EVERY Medical NIGHT AT [facility] Yes [id number] TAKE 1 Univers EVODOPA 2-11 TABLET BY ity of 50-200 mg 00:00: MOUTH [place] SR tablet 00 EVERY Medical NIGHT AT [facility] Yes [id number] TAKE 1 Univers EVODOPA 2-11 TABLET BY ity of 50-200 mg 00:00: MOUTH [place] SR tablet 00 EVERY Medical NIGHT AT [facility] Yes [id number] TAKE 1 Univers EVODOPA 2-11 TABLET BY ity of 50-200 mg 00:00: MOUTH [place] SR tablet 00 EVERY Medical NIGHT AT [facility] 2021- No [id number] 1{tbl} Take 1 Univers evodopa 1-12 02-11 tablet by ity of 50-200 mg 00:00: 00:00 mouth at [place] SR tablet 00 :00 bedtime. [facility] mirtazapine Yes [id number] 7.5mg Take 1 Univers 7.5 mg 9-09 tablet by ity of tablet 00:00: mouth at [place] 00 bedtime. [facility] mirtazapine Yes [id number] 7.5mg Take 1 Univers 7.5 mg 9-09 tablet by ity of tablet 00:00: mouth at [place] 00 bedtime. Medical Branch mirtazapine 2020-0 Yes [id number] 7.5mg Take 1 Univers 7.5 mg 9-09 tablet by ity of tablet 00:00: mouth at [place] 00 bedtime. Medical Branch mirtazapine 2020-0 Yes [id number] 7.5mg Take 1 Univers 7.5 mg 9-09 tablet by ity of tablet 00:00: mouth at [place] 00 bedtime. Medical Branch mirtazapine 2020-0 Yes [id number] 7.5mg Take 1 Univers 7.5 mg 9-09 tablet by ity of tablet 00:00: mouth at [place] 00 bedtime. Medical Branch mirtazapine 2020-0 Yes [id number] 7.5mg Take 1 Univers 7.5 mg 9-09 tablet by ity of tablet 00:00: mouth at [place] 00 bedtime. Medical Branch mirtazapine 2020-0 2022- No [id number] 7.5mg Take 1 Univers 7.5 mg 9-09 11-30 tablet by ity of tablet 00:00: 00:00 mouth at [place] 00 :00 bedtime. Medical Branch acetaminoph 2020-0 Yes [id number] 1{tbl} Take 1 Univers en-codeine 4-01 tablet by ity of (TYLENOL-CO 00:00: mouth [place] DEINE #3) 00 every 6 Medical 300-30 mg (six) Branch tablet hours as needed for Pain (scale 4-6). acetaminoph 2020-0 Yes [id number] 1{tbl} Take 1 Univers en-codeine 4-01 tablet by ity of (TYLENOL-CO 00:00: mouth [place] DEINE #3) 00 every 6 Medical 300-30 mg (six) Branch tablet hours as needed for Pain (scale 4-6). acetaminoph 2020-0 Yes [id number] 1{tbl} Take 1 Univers en-codeine 4-01 tablet by ity of (TYLENOL-CO 00:00: mouth [place] DEINE #3) 00 every 6 Medical 300-30 mg (six) Branch tablet hours as needed for Pain (scale 4-6). acetaminoph 2020-0 Yes [id number] 1{tbl} Take 1 Univers en-codeine 4-01 tablet by ity of (TYLENOL-CO 00:00: mouth [place] DEINE #3) 00 every 6 Medical 300-30 mg (six) Branch tablet hours as needed for Pain (scale 4-6). acetaminoph 2019- Yes [id number] 1{tbl} Take 1 Univers en-codeine 4-01 tablet by ity of (TYLENOL-CO 00:00: mouth [place] DEINE #3) 00 every 6 Medical 300-30 mg (six) Branch tablet hours as needed for Pain (scale 4-6). acetaminoph 2019- Yes [id number] 1{tbl} Take 1 Univers en-codeine 4-01 tablet by ity of (TYLENOL-CO 00:00: mouth [place] DEINE #3) 00 every 6 Medical 300-30 mg (six) Branch tablet hours as needed for Pain (scale 4-6). acetaminoph No [id number] 1{tbl} Take 1 Univers en-codeine 4-01 11-30 tablet by ity of (TYLENOL-CO 00:00: 00:00 mouth [place] DEINE #3) 00 :00 every 6 Medical 300-30 mg (six) Branch tablet hours as needed for Pain (scale 4-6). metoprolol Yes TAKE 1 [facility] t (LOPRESSOR) 9-26 TABLET BY Kim es 25 MG 00:00: MOUTH Medical tablet 00 TWICE Center DAILY Fosamax Fosamax Yes Na Phan 1 tablet Co mmon [facility] Flonase Flonase Yes Na Phan 1 spray in Common each Spirit nostril [facility] Carbidopa Carbidopa Yes Na Phan 1 tablet Common Spirit [facility] Ropinirole Ropinirole Yes Na Phan 1 tablet Common HCl HCl [facility] Vital Signs Vital Name Observation Time Observation Value Comments Source Body height 2022-06-30 22:15:00 157.5 cm [facility] Body weight 2022-06-30 22:15:00 58.968 kg [facility] BMI 2022-06-30 22:15:00 23.78 kg/m2 [facility] Systolic blood 2022-06-17 18:41:00 121 mm[Hg] Univer sity of pressure [facility] Diastolic blood 2022-06-17 18:41:00 67 mm[Hg] Unive rsity of pressure [facility] Heart rate 2022-06-17 18:41:00 73 /min Universi ty [facility] Body temperature 2022-06-17 18:41:00 36.28 [facility] Res[facility] rate 2022-06-17 18:41:00 24 /min [facility] Oxygen saturation in 2022-06-17 18:41:00 97 /min University of Arterial blood by [facility] Pulse oximetry Branch Body height 2022-06-15 16:39:00 157.5 cm Universi [facility] [place] Body weight 2022-06-15 16:39:00 58.968 kg [facility] BMI 2022-06-15 16:39:00 23.78 kg/m2 [facility] Systolic blood 2022-06-14 13:00:00 117 mm[Hg] Univer sity of pressure [facility] Diastolic blood 2022-06-14 13:00:00 62 mm[Hg] Unive rsity of pressure [facility] Heart rate 2022-06-14 13:00:00 69 /min [facility] Respiratory rate 2022-06-14 13:00:00 23 /min [facility] Oxygen saturation in 2022-06-14 13:00:00 96 /min University of Arterial blood by [facility] Pulse oximetry Branch Body temperature 2022-06-14 10:00:00 36.89 Cesilia [facility] [place] [facility] Body weight 2022-06-13 18:21:00 58[facility]968 [facility] 2022-06-13 18:21:00 23.78 kg/m2 [facility] Procedures Procedure Date / Time Performing Clinician Source Performed CBC WITH DIFF 2022-06-16 11:32:00 Cecy Cabrera [facility] VITAMIN D, 25-[place] 2022-06-16 11:32:00 Garrett Dempsey [facility] DUPLEX VENOUS LEGS 2022-06-15 17:48:25 Kelvin Ricci [facility] BILATERAL - BY VASCULAR Medical Branch LAB PHOSPHORUS 2022-06-15 10:10:00 Garcia, [facility] MAGNESIUM 2022-06-15 10:10:00 Garcia, [facility] BASIC METABOLIC PANEL 2022-06-15 10:10:00 Garcia, [facility] (NA, K, CL, CO2, GLUCOSE, Medica l Branch BUN, CREATININE, CA) CBC WITH DIFF 2022-06-15 10:10:00 Garcia, [facility] PHOSPHORUS 2022-06-15 10:10:00 Garcia, [facility] MAGNESIUM 2022-06-15 10:10:00 Garcia, [facility] BASIC METABOLIC PANEL 2022-06-15 10:10:00 Garcia, [facility] (NA, K, CL, CO2, GLUCOSE, Medica l Branch BUN, CREATININE, CA) CBC WITH DIFF 2022-06-15 10:10:00 Garcia, [facility] CBC WITH DIFF 2022-06-15 02:19:00 Garcia, [facility] CBC WITH DIFF 2022-06-15 02:19:00 Garcia, [facility] PHOSPHORUS 2022-06-14 16:58:00 Garcia, [facility] MAGNESIUM 2022-06-14 16:58:00 Garcia, [facility] BASIC METABOLIC PANEL 2022-06-14 16:58:00 Garcia, [facility] (NA, K, CL, CO2, GLUCOSE, Medica l Branch BUN, CREATININE, CA) CBC WITH DIFF 2022-06-14 16:58:00 Garcia, [facility] PHOSPHORUS 2022-06-14 16:58:00 Garcia, [facility] MAGNESIUM 2022-06-14 16:58:00 Garcia, [facility] BASIC METABOLIC PANEL 2022-06-14 16:58:00 Garcia, [facility] (NA, K, CL, CO2, GLUCOSE, Medica l Branch BUN, CREATININE, CA) CBC WITH DIFF 2022-06-14 16:58:00 Raad Garcia [facility] FL TIME OR 2022-06-14 15:25:04 Radhames Kelvin [facility] (NON-REPORTABLE) [facility] FL TIME OR 2022-06-14 15:25:04 Radhames [facility] (NON-REPORTABLE) [facility] HIP CLOSED REDUCTION WITH 2022-06-14 13:25:00 [facility] Medical [facility] HIP CLOSED REDUCTION WITH 2022-06-14 13:25:00 Jaki Littlejohn Un [facility] PERCUTANEOUS PINNING Medical Bra txh PHOSPHORUS 2022-06-14 09:54:00 Ralph [facility] MAGNESIUM 2022-06-14 09:54:00 Ralph [facility] BASIC METABOLIC PANEL 2022-06-14 09:54:00 [facility] ([facility], K, CL, CO2, GLUCOSE, Medica l Branch BUN, CREATININE, CA) CBC WITHOUT DIFF 2022-06-14 09:54:00 Kelvin Ricci [facility] PHOSPHORUS 2022-06-14 09:54:00 [facility] 2022-06-14 09:54:00 Ralph [facility] BASIC METABOLIC PANEL 2022-06-14 09:54:00 Ralph [facility] (NA, K, CL, CO2, GLUCOSE, Medica l Branch BUN, CREATININE, CA) CBC WITHOUT DIFF 2022-06-14 09:54:00 Kelvin Ricci [facility] ABORH CONFIRMATION (LAB 2022-06-14 05:15:[address] [facility] ONLY) [facility] Branch ABORH CONFIRMATION (LAB 2022-06-14 05:15:[address] [facility] ONLY) [facility] POCT GLUCOSE (AUTOMATED) 2022-06-14 05:14:00 Jaki Littlejohn [facility] POCT GLUCOSE (AUTOMATED) 2022-06-14 05:14:00 Jaki Littlejohn [facility] HB ABO GROUPING 2022-06-14 04:35:00 Kelvin Ricci [facility] HB ABO GROUPING 2022-06-14 04:35:00 Kelvin Ricci [facility] PROTHROMBIN TIME / INR 2022-06-14 04:33:00 [facility] ACTIVATED PARTIAL 2022-06-14 04:33:00 Kelvin Ricci [facility] URINE CULTURE 2022-06-14 04:33:00 Kelvin Ricci [facility] LACTIC ACID WHOLE BLOOD 2022-06-14 04:33:00 Kelvin Ricci [facility] PROTHROMBIN TIME / INR 2022-06-14 04:33:00 [facility] ACTIVATED PARTIAL 2022-06-14 04:33:00 Kelvin Ricci [facility] URINE CULTURE 2022-06-14 04:33:00 Kelvin Ricci [facility] LACTIC ACID WHOLE BLOOD 2022-06-14 04:33:00 Kelvin Ricci [facility] XR FEMUR 2 VW RIGHT 2022-06-14 03:53:00 Kelvin Ricci [facility] XR HIPS 2 VW RIGHT 2022-06-14 03:53:00 Kelvin Ricci [facility] XR FEMUR 2 VW RIGHT 2022-06-14 03:53:00 Kelvin Ricci [facility] XR HIPS 2 VW RIGHT 2022-06-14 03:53:00 Kelvin Ricci [facility] MRSA / MSSA SCREEN BY 2022-06-14 03:10:00 Kelvin Ricci [facility] MRSA / MSSA SCREEN BY 2022-06-14 03:10:00 Kelvin Ricci [facility] URINALYSIS 2022-06-13 22:08:00 Terence Rich [facility] URINALYSIS 2022-06-13 22:08:00 Terence Rich [facility] CT ABDOMEN PELVIS W 2022-06-13 20:26:50 Terence Rich [facility] CONTRAST Medical Branch CT ABDOMEN PELVIS W 2022-06-13 20:26:50 Terence Rich [facility] CONTRAST Medical Branch XR CHEST 1 VW 2022-06-13 20:25:18 Terence Rich [facility] XR CHEST 1 VW 2022-06-13 20:25:18 Terence Rich [facility] CT CERVICAL SPINE WO 2022-06-13 20:22:38 Terence Rich [facility] CONTRAST Medical Branch CT HEAD WO CONTRAST 2022-06-13 20:22:38 Terence Rich [facility] CT CERVICAL SPINE WO 2022-06-13 20:22:38 Terence Rich [facility] CONTRAST Medical Branch CT HEAD WO CONTRAST 2022-06-13 20:22:38 Terence Rich [facility] CREATINE KINASE 2022-06-13 19:16:00 Radhames [facility] COMP. METABOLIC PANEL 2022-06-13 19:16:00 Terence Rich [facility] ([id number]) [facility] CBC WITH DIFF 2022-06-13 19:16:00 Terence Rich [facility] CREATINE KINASE 2022-06-13 19:16:00 Radhames Kelvin [facility] COMP. METABOLIC PANEL 2022-06-13 19:16:00 Terence Rich [facility] ([id number]) Medical Branch CBC WITH DIFF 2022-06-13 19:16:00 Terence Rich [facility] CONSENT/REFUSAL FOR 2022-06-13 18:15:38 Doctor Unassigned, [facility] DIAGNOSIS AND TREATMENT [facility] [place] CONSENT/REFUSAL FOR 2022-06-13 18:15:38 Doctor Unassigned, [facility] DIAGNOSIS AND TREATMENT [facility] [place] HOSPITAL ADMISSION 2022-06-13 06:01:00 Doctor Unassigned, [facility] [place] HOSPITAL ADMISSION 2022-06-13 06:01:00 Doctor Unassigned, [facility] Name [facility] ASSIGNMENT OF BENEFITS 2021-09-22 22:24:21 Doctor Unassigned, [facility] Name [facility] MEDICATION CORRESPONDENCE 2021-08-29 06:01:00 Doctor Heath, [facility] Name [facility] Encounters Start End Encounter Admission Attending Care Care Encounter Source Date/Time Date/Time Type Type Clinicians Facility Department ID 2022-08-14 2022-08-[address] [facility] [id number] Univers 10:00:00 10:00:00 ROSALBA [facility] 2022-08-04 2022-08-[address] [facility] [id number] Univers 10:40:00 10:40:00 ZURDO NATION [facility] 2022-07-21 2022-07-[address] [facility] [id number] Univers 10:00:00 10:00:00 ZURDO NATION [facility] 2022-06-30 2022-06-[address] [facility] [id number] Univers 16:00:00 17:01:16 SHAHEEN [facility] 2022-06-30 2022-06-30 [facility] [id number] Univers 16:00:00 17:01:16 Visit [facility] [id number] it y of [place] 4.2.7.2.686 Phillip as RAHUL?BLEA [phone] [address] MEDICAL OFFICE BUILDING 2022-06-18 2022-06-18 Transition BRENNA Rush [id number] Univers 00:00:00 00:00:00 of Care Paola YI [id number] i ty [phone] [address] Branch 2022-06-13 2022-06-17 [facility] Terence Rich [id number] Univers 12:26:00 16:24:00 Encounter Jaki Littlejohn [id number] ity of [facility] 4.2.7.2.686 [place] [phone] [facility] 100 Branch 2022-06-13 2022-06-17 Inpatient X [facility] [id number] Univers 12:26:00 16:24:00 LUPILLO ity of [facility] 2022-06-14 2022-06-14 Surgery LittlejohnJaki [id number] Univers 07:15:00 09:26:00 SHANI [id number] it y of [facility] 4.2.7.2.686 Phillip as [phone] [facility] 103 Branch 2021-12-19 2021-12-19 [facility] [id number] Univers 00:00:00 00:00:00 Zurdo Ariza [facility] [id number] ity of [place] 4.2.7.2.686 Phillip as RAHUL?BLEA [phone] Vt jm WILSON [address] [place] [address] MEDICAL OFFICE BUILDING 2021-09-22 2021-09-22 [address] [facility] [facility] [id number] Univers 16:20:00 16:49:42 ZURDO NATION [facility] 2021-09-22 2021-09-22 Orders Doctor DE LA CRUZ 1.2.840.114 [id number] Univers 00:00:00 00:00:00 Only Unassigned, SHANI [id number] ity of [place] [facility] 4.2.7.2.686 Phillip as [phone] [facility] 009 Branch 2021-08-29 2021-08-29 Refill Chapis [facility] 1.2.840.114 [id number] Univers 00:00:00 00:00:00 Zurdo CHAKRABORTY 350.1.13.10 ity of [place] [phone] Vt dicjose [facility] 092 Branch BUILDING 2021-08-29 2021-08-29 Telephone Chapis [facility] 1.2.840.114 [id number] Univers 00:00:00 00:00:00 Zurdo [facility] [id number] ity of [place] 4.2.7.2.686 Phillip as RAHUL?BLEA [phone] Vt dicjose [place] [address] [place] MEDICAL OFFICE BUILDING 2021-08-29 2021-08-29 Orders Doctor DOROTHY 1.2.840.114 [id number] Univers 00:00:00 00:00:00 Only Unassigned, SHANI 350.1.13.10 ity of [place] [facility] 4.2.7.2.686 Phillip as [phone] [address] 2020-07-30 2020-07-[address] [facility] [id number] Univers 16:20:00 16:20:00 ZURDO NATION [facility] 2019-10-18 2019-10-18 Emergency X MARIA ESTHER [facility] ERT [id number] Univers 20:44:11 22:04:00 ZACHARY enriquez [facility] 2018-03-22 2018-03-22 Out[facility] [id number] Common 15:33:00 15:33:[address] [facility] 2018-03-21 2018-03-21 Outpatient [facility] [id number] Common 17:39:00 17:39:[address] [facility] 2018-03-18 2018-03-18 Outpatient [facility] [id number] Common 11:44:00 11:44:[address] [facility] 2018-03-15 2018-03-15 Outpatient [facility] [id number] Common 16:10:00 16:10:[address] [facility] 2018-03-11 2018-03-11 Outpatient [facility] [id number] Common 15:39:00 15:39:[address] [facility] 2018-03-10 2018-03-10 Outpatient [facility] [id number] Common 15:30:00 15:30:[address] [facility] 2018-01-06 2018-01-06 Outpatient Maureen Lee [id number] Common 12:20:00 12:20:[address] [facility] 2017-12-08 2017-12-08 Outpatient Maureen Lee 13 [id number] Common 09:45:00 09:45:[address] [facility] Results Test Description Test Time Test Comments Results Result Comments Source BASIC METABOLIC PANEL (NA, K, CL, CO2, GLUCOSE, BUN, 2022-05 10:53:46 CREATININE, CA) Test Item Value Reference Range Interpretation Comme nts NA (test code = 3122911244) 139 mmol/L 135-145 K (test code = 1663007740) 4.2 mmol/L 3.5-5.0 CL (test code = 4858326442) 108 mmol/L 98-108 CO2 TOTAL (test code = 1129772797) 28 mmol/L 23-31 AGAP (test code = 3485448257) 2-16 BUN (test code = 6023504632) 22 mg/dL 7-23 GLUCOSE (test code = 6834597585) 125 mg/dL 70-110 H CREATININE (test code = 0.89 mg/dL 0.50-1.04 5571812734) CALCIUM (test code = 0103018789) 7.8 mg/dL 8.6-10.6 L eGFR (test code = 5210307069) mL/min/1.73m2 DION (test code = DION) Association of Glomerular Filtration Rate (GFR) and Staging of Kidney Disease* + +-------- + ------+| GFR (mL/min/1.73 m2) ?| With Kidney Damage ?| ?Without Kidney Damage+ +-- + +| ?>90 ?| ?Stage one ?| ? Normal ?+ +------- + -------+| ?60-89 ?| ?Stage two ?| ? Decreased GFR ? + +-------- + ------+| ?30-59 ?| ?Stage three ?| ? Stage three ? + +-------- + ------+| ?15-29 ?| ?Stage four ? | ? Stage four ?+ +------- + -------+| ?<15 (or dialysis) ? ?| ?Stage five ? | ? Stage five ?+ +------- + -------+ *Each stage assumes the associated GFR level has been in effect for at least three months. ?Stages 1 to 5, with or without kidney disease, indicate chronic kidney disease. Notes: Determination of stages one and two (with eGFR >59mL/min/1.73 m2) requires estimation of kidney damage for at least three months as defined by structural or functional abnormalities of the kidney, manifested by either:Pathological abnormalities or Markers of kidney damage (including abnormalities in the composition of the blood or urine or abnormalities in imaging tests). Lab Interpretation (test code = Abnormal 12475-8) [facility] 10[facility]53:46 Test Item Value Reference Range Interpretation Comments MAGNESIUM (test code = 4677484537) 2.0 mg/dL 1.7-2.4 Lab Interpretation (test code = Normal 10187-3) [facility] 10:53:46 Test Item Value Reference Range Interpretation Comments PHOSPHORUS (test code = 1397043084) 3.6 mg/dL 2.5-5.0 Lab Interpretation (test code = Normal 57361-2) [facility] (NA, K, CL, CO2, GLUCOSE, BUN, CREATININE, CA)2022-06-15 10:53:46 Test Item Value Reference Range Interpretation Comments NA (test code = 139 mmol/L 135-145 3524389923) K (test code = 4.2 mmol/L 3.5-5.0 5282983976) CL (test code = 108 mmol/L 98-108 4033329724) CO2 TOTAL (test code = 28 mmol/L 23-31 1104478172) AGAP (test code = 2-16 7157229169) BUN (test code = 22 mg/dL 7-23 9007917872) GLUCOSE (test code = 125 mg/dL 70-110 H 7691598191) CREATININE (test code = 0.89 mg/dL 0.50-1.04 3125464416) CALCIUM (test code = 7.8 mg/dL 8.6-10.6 L 8872101449) eGFR (test code = mL/min/1.73m2 3281202195) DION (test code = DION) Association of Glomerular Filtration Rate (GFR) and Staging of Kidney Disease* + --+ --+ ------+| GFR (mL/min/1.73 m2) ?| With Kidney Damage ?| ?Without Kidney Damage+ --------+ --------+ +| ?>90 ?| ?Stage one ?| ? Normal ?+ ---+ ---+ -------+| ?60-89 ?| ?Stage two ?| ? Decreased GFR ? + --+ --+ ------+| ?30-59 ?| ?Stage three ?| ? Stage three ? + --+ --+ ------+| ?15-29 ?| ?Stage four ? | ? Stage four ?+ ---+ ---+ -------+| ?<15 (or dialysis) ? ?| ?Stage five ? | ? Stage five ?+ ---+ ---+ -------+ *Each stage assumes the associated GFR level has been in effect for at least three months. ?Stages 1 to 5, with or without kidney disease, indicate chronic kidney disease. Notes: Determination of stages one and two (with eGFR >59mL/min/1.73 m2) requires estimation of kidney damage for at least three months as defined by structural or functional abnormalities of the kidney, manifested by either:Pathological abnormalities or Markers of kidney damage (including abnormalities in the composition of the blood or urine or abnormalities in imaging tests). Lab Interpretation Abnormal (test code = 14466-0) [facility] 10:53:46 Test Item Value Reference Range Interpretation Comments MAGNESIUM (test code = 9403770952) 2.0 mg/dL 1.7-2.4 Lab Interpretation (test code = Normal 51149-5) [facility] 10:53:46 Test Item Value Reference Range Interpretation Comments PHOSPHORUS (test code = 5490930367) 3.6 mg/dL 2.5-5.0 Lab Interpretation (test code = Normal 71329-5) [facility] WITH [id number] 10:29:07 Test Item Value Reference Range Interpretation Comments WBC (test code = See_Comment [Automated 6690-2) message] The sy stem which generated this result transmitted reference range : 4.30 - 11.10 10*3/?L. The reference range was not used to interpret this result as normal/abnormal . RBC (test code = See_Comment L [Automated 789-8) message] The sy stem which generated this result transmitted reference range : 3.93 - 5.25 10*6/?L. The reference range was not used to interpret this result as normal/abnormal . HGB (test code = 8.6 g/dL 11.6-15.0 L 718-7) HCT (test code = 26.3 % 35.7-45.2 L 4544-3) MCV (test code = 92.3 fL 80.6-95.5 787-2) MCH (test code = 30.2 pg 25.9-32.8 785-6) MCHC (test code = 32.7 g/dL 31.6-35.1 786-4) RDW-SD (test code = 44.2 fL 39.0-49.9 33124-2) RDW-CV (test code = 13.2 % 12.0-15.5 788-0) PLT (test code = See_Comment [Automated 777-3) message] The sy stem which generated this result transmitted reference range : 166 - 358 10*3/ ?L. The reference r renu was not used to interpret this result as normal/abnormal . MPV (test code = 9.1 fL 9.5-12.9 L 93744-4) NRBC/100 WBC (test See_Comment [Automat ed code = 8330786683) message] The system which generated this result transmitted reference range : 0.0 - 10.0 /100 WBCs. The refer ence range was not u sed to interpret th is result as normal/abnormal . NRBC x10^3 (test code See_Comment [Auto mated = 1169376472) message] The s ystem which generated this result transmitted reference range : 10*3/?L. The reference range was not used to interpret this result as normal/abnormal . GRAN MAT (NEUT) % 70.8 % (test code = 770-8) IMM GRAN % (test code 0.40 % = 2691704701) LYMPH % (test code = 15.8 % 736-9) MONO % (test code = 9.7 % 5905-5) EOS % (test code = 2.9 % 713-8) BASO % (test code = 0.4 % 706-2) GRAN MAT x10^3(ANC) 5.52 10*3/uL 1.88-7.09 (test code = 5899051344) IMM GRAN x10^3 (test 0.03 10*3/uL 0.00-0.06 code = 4642813033) LYMPH x10^3 (test code 1.23 10*3/uL 1.32-3.29 L = 731-0) MONO x10^3 (test code 0.76 10*3/uL 0.33-0.92 = 742-7) EOS x10^3 (test code = 0.23 10*3/uL 0.03-0.39 711-2) BASO x10^3 (test code 0.03 10*3/uL 0.01-0.07 = 704-7) Lab Interpretation Abnormal (test code = 23075-5) [facility] WITH [id number] 10:29:07 Test Item Value Reference Range Interpretation Comments WBC (test code = See_Comment [Automated 6690-2) message] The sy stem which generated this result transmitted reference range : 4.30 - 11.10 10*3/?L. The reference range was not used to interpret this result as normal/abnormal . RBC (test code = See_Comment L [Automated 789-8) message] The sy stem which generated this result transmitted reference range : 3.93 - 5.25 10*6/?L. The reference range was not used to interpret this result as normal/abnormal . HGB (test code = 8.6 g/dL 11.6-15.0 L 718-7) HCT (test code = 26.3 % 35.7-45.2 L 4544-3) MCV (test code = 92.3 fL 80.6-95.5 787-2) MCH (test code = 30.2 pg 25.9-32.8 785-6) MCHC (test code = 32.7 g/dL 31.6-35.1 786-4) RDW-SD (test code = 44.2 fL 39.0-49.9 20293-4) RDW-CV (test code = 13.2 % 12.0-15.5 788-0) PLT (test code = See_Comment [Automated 777-3) message] The sy stem which generated this result transmitted reference range : 166 - 358 10*3/ ?L. The reference r renu was not used to interpret this result as normal/abnormal . MPV (test code = 9.1 fL 9.5-12.9 L 84353-7) NRBC/100 WBC (test See_Comment [Automat ed code = 0122891050) message] The system which generated this result transmitted reference range : 0.0 - 10.0 /100 WBCs. The refer ence range was not u sed to interpret th is result as normal/abnormal . NRBC x10^3 (test code See_Comment [Auto mated = 3262750536) message] The s ystem which generated this result transmitted reference range : 10*3/?L. The reference range was not used to interpret this result as normal/abnormal . GRAN MAT (NEUT) % 70.8 % (test code = 770-8) IMM GRAN % (test code 0.40 % = 3697138787) LYMPH % (test code = 15.8 % 736-9) MONO % (test code = 9.7 % 5905-5) EOS % (test code = 2.9 % 713-8) BASO % (test code = 0.4 % 706-2) GRAN MAT x10^3(ANC) 5.52 10*3/uL 1.88-7.09 (test code = 7774995134) IMM GRAN x10^3 (test 0.03 10*3/uL 0.00-0.06 code = 2654180169) LYMPH x10^3 (test code 1.23 10*3/uL 1.32-3.29 L = 731-0) MONO x10^3 (test code 0.76 10*3/uL 0.33-0.92 = 742-7) EOS x10^3 (test code = 0.23 10*3/uL 0.03-0.39 711-2) BASO x10^3 (test code 0.03 10*3/uL 0.01-0.07 = 704-7) Lab Interpretation Abnormal (test code = 02114-0) [facility] WITH [id number] 02:34:04 Test Item Value Reference Range Interpretation Comments WBC (test code = See_Comment [Automated 6690-2) message] The sy stem which generated this result transmitted reference range : 4.30 - 11.10 10*3/?L. The reference range was not used to interpret this result as normal/abnormal . RBC (test code = See_Comment L [Automated 789-8) message] The sy stem which generated this result transmitted reference range : 3.93 - 5.25 10*6/?L. The reference range was not used to interpret this result as normal/abnormal . HGB (test code = 8.9 g/dL 11.6-15.0 L 718-7) HCT (test code = 27.9 % 35.7-45.2 L 4544-3) MCV (test code = 91.8 fL 80.6-95.5 787-2) MCH (test code = 29.3 pg 25.9-32.8 785-6) MCHC (test code = 31.9 g/dL 31.6-35.1 786-4) RDW-SD (test code = 44.0 fL 39.0-49.9 04399-0) RDW-CV (test code = 13.2 % 12.0-15.5 788-0) PLT (test code = See_Comment [Automated 777-3) message] The sy stem which generated this result transmitted reference range : 166 - 358 10*3/ ?L. The reference r renu was not used to interpret this result as normal/abnormal . MPV (test code = 9.2 fL 9.5-12.9 L 00349-7) NRBC/100 WBC (test See_Comment [Automat ed code = 5439041921) message] The system which generated this result transmitted reference range : 0.0 - 10.0 /100 WBCs. The refer ence range was not u sed to interpret th is result as normal/abnormal . NRBC x10^3 (test code See_Comment [Auto mated = 1127174397) message] The s ystem which generated this result transmitted reference range : 10*3/?L. The reference range was not used to interpret this result as normal/abnormal . GRAN MAT (NEUT) % 72.3 % (test code = 770-8) IMM GRAN % (test code 0.30 % = 5138075583) LYMPH % (test code = 15.5 % 736-9) MONO % (test code = 9.1 % 5905-5) EOS % (test code = 2.4 % 713-8) BASO % (test code = 0.4 % 706-2) GRAN MAT x10^3(ANC) 5.42 10*3/uL 1.88-7.09 (test code = 0803218237) IMM GRAN x10^3 (test 0.00-0.06 code = 8102262764) LYMPH x10^3 (test code 1.16 10*3/uL 1.32-3.29 L = 731-0) MONO x10^3 (test code 0.68 10*3/uL 0.33-0.92 = 742-7) EOS x10^3 (test code = 0.18 10*3/uL 0.03-0.39 711-2) BASO x10^3 (test code 0.03 10*3/uL 0.01-0.07 = 704-7) Lab Interpretation Abnormal (test code = 24388-5) [facility] WITH [id number] 02:34:04 Test Item Value Reference Range Interpretation Comments WBC (test code = See_Comment [Automated 3762-2) message] The sy stem which generated this result transmitted reference range : 4.30 - 11.10 10*3/?L. The reference range was not used to interpret this result as normal/abnormal . RBC (test code = See_Comment L [Automated 430-8) message] The sy stem which generated this result transmitted reference range : 3.93 - 5.25 10*6/?L. The reference range was not used to interpret this result as normal/abnormal . HGB (test code = 8.9 g/dL 11.6-15.0 L 718-7) HCT (test code = 27.9 % 35.7-45.2 L 4544-3) MCV (test code = 91.8 fL 80.6-95.5 787-2) MCH (test code = 29.3 pg 25.9-32.8 785-6) MCHC (test code = 31.9 g/dL 31.6-35.1 786-4) RDW-SD (test code = 44.0 fL 39.0-49.9 95903-0) RDW-CV (test code = 13.2 % 12.0-15.5 788-0) PLT (test code = See_Comment [Automated 777-3) message] The sy stem which generated this result transmitted reference range : 166 - 358 10*3/ ?L. The reference r renu was not used to interpret this result as normal/abnormal . MPV (test code = 9.2 fL 9.5-12.9 L 32497-9) NRBC/100 WBC (test See_Comment [Automat ed code = 9885215302) message] The system which generated this result transmitted reference range : 0.0 - 10.0 /100 WBCs. The refer ence range was not u sed to interpret th is result as normal/abnormal . NRBC x10^3 (test code See_Comment [Auto mated = 1167069035) message] The s ystem which generated this result transmitted reference range : 10*3/?L. The reference range was not used to interpret this result as normal/abnormal . GRAN MAT (NEUT) % 72.3 % (test code = 770-8) IMM GRAN % (test code 0.30 % = [id number]) LYMPH % (test code = 15.5 % 736-9) MONO % (test code = 9.1 % 5905-5) EOS % (test code = 2.4 % 713-8) BASO % (test code = 0.4 % 706-2) GRAN MAT x10^3(ANC) 5.42 10*3/uL 1.88-7.09 (test code = [id number]) IMM GRAN x10^3 (test 0.00-0.06 code = [id number]) LYMPH x10^3 (test code 1.16 10*3/uL 1.32-3.29 L = 731-0) MONO x10^3 (test code 0.68 10*3/uL 0.33-0.92 = 742-7) EOS x10^3 (test code = 0.18 10*3/uL 0.03-0.39 711-2) BASO x10^3 (test code 0.03 10*3/uL 0.01-0.07 = 704-7) Lab Interpretation Abnormal (test code = 88709-2) [facility]01 Test Item Value Reference Range Interpretation Comments MAGNESIUM (test code = 7632954223) 2.2 mg/dL 1.7-2.4 Lab Interpretation (test code = Normal 47683-6) [facility] 17:33:01 Test Item Value Reference Range Interpretation Comments PHOSPHORUS (test code = 6408538231) 3.2 mg/dL 2.5-5.0 Lab Interpretation (test code = Normal 80169-8) [facility] METABOLIC PANEL (NA, K, CL, CO2, GLUCOSE, BUN, CREATININE, CA)2022-06-14 17:33:01 Test Item Value Reference Range Interpretation Comments NA (test code = 141 mmol/L 135-145 4354780464) K (test code = 4.0 mmol/L 3.5-5.0 7193154211) CL (test code = 108 mmol/L 98-108 8428460073) CO2 TOTAL (test code = 26 mmol/L 23-31 2157071310) AGAP (test code = 2-16 7347685303) BUN (test code = 18 mg/dL 7-23 4111616899) GLUCOSE (test code = 101 mg/dL 70-110 5047457804) CREATININE (test code = 0.74 mg/dL 0.50-1.04 8788164543) CALCIUM (test code = 7.8 mg/dL 8.6-10.6 L 1304191810) eGFR (test code = mL/min/1.73m2 4513624234) DION (test code = DION) Association of Glomerular Filtration Rate (GFR) and Staging of Kidney Disease* + --+ --+ ------+| GFR (mL/min/1.73 m2) ?| With Kidney Damage ?| ?Without Kidney Damage+ --------+ --------+ +| ?>90 ?| ?Stage one ?| ? Normal ?+ ---+ ---+ -------+| ?60-89 ?| ?Stage two ?| ? Decreased GFR ? + --+ --+ ------+| ?30-59 ?| ?Stage three ?| ? Stage three ? + --+ --+ ------+| ?15-29 ?| ?Stage four ? | ? Stage four ?+ ---+ ---+ -------+| ?<15 (or dialysis) ? ?| ?Stage five ? | ? Stage five ?+ ---+ ---+ -------+ *Each stage assumes the associated GFR level has been in effect for at least three months. ?Stages 1 to 5, with or without kidney disease, indicate chronic kidney disease. Notes: Determination of stages one and two (with eGFR >59mL/min/1.73 m2) requires estimation of kidney damage for at least three months as defined by structural or functional abnormalities of the kidney, manifested by either:Pathological abnormalities or Markers of kidney damage (including abnormalities in the composition of the blood or urine or abnormalities in imaging tests). Lab Interpretation Abnormal (test code = 81930-2) [facility]:01 Test Item Value Reference Range Interpretation Comments MAGNESIUM (test code = 3893001015) 2.2 mg/dL 1.7-2.4 Lab Interpretation (test code = Normal 13569-4) [facility] 17:33:01 Test Item Value Reference Range Interpretation Comments PHOSPHORUS (test code = 2877657516) 3.2 mg/dL 2.5-5.0 Lab Interpretation (test code = Normal 63045-1) [facility] (NA, K, CL, CO2, GLUCOSE, BUN, CREATININE, CA)2022-06-14 17:33:01 Test Item Value Reference Range Interpretation Comments NA (test code = 141 mmol/L 135-145 7030314759) K (test code = 4.0 mmol/L 3.5-5.0 3146442506) CL (test code = 108 mmol/L 98-108 9625037390) CO2 TOTAL (test code = 26 mmol/L 23-31 1827088920) AGAP (test code = 2-16 4305461961) BUN (test code = 18 mg/dL 7-23 3872072013) GLUCOSE (test code = 101 mg/dL 70-110 9867312762) CREATININE (test code = 0.74 mg/dL 0.50-1.04 8840528914) CALCIUM (test code = 7.8 mg/dL 8.6-10.6 L 4614408441) eGFR (test code = mL/min/1.73m2 6667170417) DION (test code = DION) Association of Glomerular Filtration Rate (GFR) and Staging of Kidney Disease* + --+ --+ ------+| GFR (mL/min/1.73 m2) ?| With Kidney Damage ?| ?Without Kidney Damage+ --------+ --------+ +| ?>90 ?| ?Stage one ?| ? Normal ?+ ---+ ---+ -------+| ?60-89 ?| ?Stage two ?| ? Decreased GFR ? + --+ --+ ------+| ?30-59 ?| ?Stage three ?| ? Stage three ? + --+ --+ ------+| ?15-29 ?| ?Stage four ? | ? Stage four ?+ ---+ ---+ -------+| ?<15 (or dialysis) ? ?| ?Stage five ? | ? Stage five ?+ ---+ ---+ -------+ *Each stage assumes the associated GFR level has been in effect for at least three months. ?Stages 1 to 5, with or without kidney disease, indicate chronic kidney disease. Notes: Determination of stages one and two (with eGFR >59mL/min/1.73 m2) requires estimation of kidney damage for at least three months as defined by structural or functional abnormalities of the kidney, manifested by either:Pathological abnormalities or Markers of kidney damage (including abnormalities in the composition of the blood or urine or abnormalities in imaging tests). Lab Interpretation Abnormal (test code = 50318-8) [facility] WITH [id number] 17:13:02 Test Item Value Reference Range Interpretation Comments WBC (test code = See_Comment [Automated 6690-2) message] The sy stem which generated this result transmitted reference range : 4.30 - 11.10 10*3/?L. The reference range was not used to interpret this result as normal/abnormal . RBC (test code = See_Comment L [Automated 789-8) message] The sy stem which generated this result transmitted reference range : 3.93 - 5.25 10*6/?L. The reference range was not used to interpret this result as normal/abnormal . HGB (test code = 9.4 g/dL 11.6-15.0 L 718-7) HCT (test code = 29.7 % 35.7-45.2 L 4544-3) MCV (test code = 92.0 fL 80.6-95.5 787-2) MCH (test code = 29.1 pg 25.9-32.8 785-6) MCHC (test code = 31.6 g/dL 31.6-35.1 786-4) RDW-SD (test code = 45.0 fL 39.0-49.9 85613-6) RDW-CV (test code = 13.2 % 12.0-15.5 788-0) PLT (test code = See_Comment [Automated 777-3) message] The sy stem which generated this result transmitted reference range : 166 - 358 10*3/ ?L. The reference r renu was not used to interpret this result as normal/abnormal . MPV (test code = 8.9 fL 9.5-12.9 L 70106-6) NRBC/100 WBC (test See_Comment [Automat ed code = 1317644412) message] The system which generated this result transmitted reference range : 0.0 - 10.0 /100 WBCs. The refer ence range was not u sed to interpret th is result as normal/abnormal . NRBC x10^3 (test code See_Comment [Auto mated = 2583285241) message] The s ystem which generated this result transmitted reference range : 10*3/?L. The reference range was not used to interpret this result as normal/abnormal . GRAN MAT (NEUT) % 71.2 % (test code = 770-8) IMM GRAN % (test code 0.50 % = 3314438758) LYMPH % (test code = 15.8 % 736-9) MONO % (test code = 8.8 % 5905-5) EOS % (test code = 3.3 % 713-8) BASO % (test code = 0.4 % 706-2) GRAN MAT x10^3(ANC) 5.36 10*3/uL 1.88-7.09 (test code = 5069543116) IMM GRAN x10^3 (test 0.04 10*3/uL 0.00-0.06 code = 0144190790) LYMPH x10^3 (test code 1.19 10*3/uL 1.32-3.29 L = 731-0) MONO x10^3 (test code 0.66 10*3/uL 0.33-0.92 = 742-7) EOS x10^3 (test code = 0.25 10*3/uL 0.03-0.39 711-2) BASO x10^3 (test code 0.03 10*3/uL 0.01-0.07 = 704-7) Lab Interpretation Abnormal (test code = 64629-9) [facility] WITH [id number] 17:13:02 Test Item Value Reference Range Interpretation Comments WBC (test code = See_Comment [Automated 6690-2) message] The sy stem which generated this result transmitted reference range : 4.30 - 11.10 10*3/?L. The reference range was not used to interpret this result as normal/abnormal . RBC (test code = See_Comment L [Automated 789-8) message] The sy stem which generated this result transmitted reference range : 3.93 - 5.25 10*6/?L. The reference range was not used to interpret this result as normal/abnormal . HGB (test code = 9.4 g/dL 11.6-15.0 L 718-7) HCT (test code = 29.7 % 35.7-45.2 L 4544-3) MCV (test code = 92.0 fL 80.6-95.5 787-2) MCH (test code = 29.1 pg 25.9-32.8 785-6) MCHC (test code = 31.6 g/dL 31.6-35.1 786-4) RDW-SD (test code = 45.0 fL 39.0-49.9 75004-5) RDW-CV (test code = 13.2 % 12.0-15.5 788-0) PLT (test code = See_Comment [Automated 777-3) message] The sy stem which generated this result transmitted reference range : 166 - 358 10*3/ ?L. The reference r renu was not used to interpret this result as normal/abnormal . MPV (test code = 8.9 fL 9.5-12.9 L 57960-0) NRBC/100 WBC (test See_Comment [Automat ed code = 1429389816) message] The system which generated this result transmitted reference range : 0.0 - 10.0 /100 WBCs. The refer ence range was not u sed to interpret th is result as normal/abnormal . NRBC x10^3 (test code See_Comment [Auto mated = 1019932090) message] The s ystem which generated this result transmitted reference range : 10*3/?L. The reference range was not used to interpret this result as normal/abnormal . GRAN MAT (NEUT) % 71.2 % (test code = 770-8) IMM GRAN % (test code 0.50 % = 3727150582) LYMPH % (test code = 15.8 % 736-9) MONO % (test code = 8.8 % 5905-5) EOS % (test code = 3.3 % 713-8) BASO % (test code = 0.4 % 706-2) GRAN MAT x10^3(ANC) 5.36 10*3/uL 1.88-7.09 (test code = 0829957948) IMM GRAN x10^3 (test 0.04 10*3/uL 0.00-0.06 code = 9556510939) LYMPH x10^3 (test code 1.19 10*3/uL 1.32-3.29 L = 731-0) MONO x10^3 (test code 0.66 10*3/uL 0.33-0.92 = 742-7) EOS x10^3 (test code = 0.25 10*3/uL 0.03-0.39 711-2) BASO x10^3 (test code 0.03 10*3/uL 0.01-0.07 = 704-7) Lab Interpretation Abnormal (test code = 66427-2) [facility] Test Item Value Reference Range Interpretation Comments MAGNESIUM (test code = 1292102493) 2.2 mg/dL 1.7-2.4 Lab Interpretation (test code = Normal 54105-2) [facility] 10:59:26 Test Item Value Reference Range Interpretation Comments PHOSPHORUS (test code = 6817968055) 3.4 mg/dL 2.5-5.0 Lab Interpretation (test code = Normal 27373-6) [facility] Test Item Value Reference Range Interpretation Comments MAGNESIUM (test code = 7626051772) 2.2 mg/dL 1.7-2.4 Lab Interpretation (test code = Normal 17588-9) [facility] 10:59:26 Test Item Value Reference Range Interpretation Comments PHOSPHORUS (test code = 1232835891) 3.4 mg/dL 2.5-5.0 Lab Interpretation (test code = Normal 08922-8) [facility] (NA, K, CL, CO2, GLUCOSE, BUN, CREATININE, CA)2022-06-14 10:59:25 Test Item Value Reference Range Interpretation Comments NA (test code = 143 mmol/L 135-145 6846216694) K (test code = 4.0 mmol/L 3.5-5.0 0848824895) CL (test code = 110 mmol/L 98-108 H 6482886303) CO2 TOTAL (test code = 27 mmol/L 23-31 3640706447) AGAP (test code = 2-16 5215379544) BUN (test code = 21 mg/dL 7-23 8321970183) GLUCOSE (test code = 108 mg/dL 70-110 7009156878) CREATININE (test code = 0.74 mg/dL 0.50-1.04 1784819697) CALCIUM (test code = 7.9 mg/dL 8.6-10.6 L 6123239880) eGFR (test code = mL/min/1.73m2 3115883151) DION (test code = DION) Association of Glomerular Filtration Rate (GFR) and Staging of Kidney Disease* + --+ --+ ------+| GFR (mL/min/1.73 m2) ?| With Kidney Damage ?| ?Without Kidney Damage+ --------+ --------+ +| ?>90 ?| ?Stage one ?| ? Normal ?+ ---+ ---+ -------+| ?60-89 ?| ?Stage two ?| ? Decreased GFR ? + --+ --+ ------+| ?30-59 ?| ?Stage three ?| ? Stage three ? + --+ --+ ------+| ?15-29 ?| ?Stage four ? | ? Stage four ?+ ---+ ---+ -------+| ?<15 (or dialysis) ? ?| ?Stage five ? | ? Stage five ?+ ---+ ---+ -------+ *Each stage assumes the associated GFR level has been in effect for at least three months. ?Stages 1 to 5, with or without kidney disease, indicate chronic kidney disease. Notes: Determination of stages one and two (with eGFR >59mL/min/1.73 m2) requires estimation of kidney damage for at least three months as defined by structural or functional abnormalities of the kidney, manifested by either:Pathological abnormalities or Markers of kidney damage (including abnormalities in the composition of the blood or urine or abnormalities in imaging tests). Lab Interpretation Abnormal (test code = 68567-4) [facility] METABOLIC PANEL (NA, K, CL, CO2, GLUCOSE, BUN, CREATININE, CA)2022-06-14 10:59:25 Test Item Value Reference Range Interpretation Comments NA (test code = 143 mmol/L 135-145 2644897699) K (test code = 4.0 mmol/L 3.5-5.0 3451549966) CL (test code = 110 mmol/L 98-108 H 2076134736) CO2 TOTAL (test code = 27 mmol/L 23-31 2617905589) AGAP (test code = 2-16 7158510434) BUN (test code = 21 mg/dL 7-23 7757224772) GLUCOSE (test code = 108 mg/dL 70-110 1218762814) CREATININE (test code = 0.74 mg/dL 0.50-1.04 7727182767) CALCIUM (test code = 7.9 mg/dL 8.6-10.6 L 3734799463) eGFR (test code = mL/min/1.73m2 8297966786) DION (test code = DION) Association of Glomerular Filtration Rate (GFR) and Staging of Kidney Disease* + --+ --+ ------+| GFR (mL/min/1.73 m2) ?| With Kidney Damage ?| ?Without Kidney Damage+ --------+ --------+ +| ?>90 ?| ?Stage one ?| ? Normal ?+ ---+ ---+ -------+| ?60-89 ?| ?Stage two ?| ? Decreased GFR ? + --+ --+ ------+| ?30-59 ?| ?Stage three ?| ? Stage three ? + --+ --+ ------+| ?15-29 ?| ?Stage four ? | ? Stage four ?+ ---+ ---+ -------+| ?<15 (or dialysis) ? ?| ?Stage five ? | ? Stage five ?+ ---+ ---+ -------+ *Each stage assumes the associated GFR level has been in effect for at least three months. ?Stages 1 to 5, with or without kidney disease, indicate chronic kidney disease. Notes: Determination of stages one and two (with eGFR >59mL/min/1.73 m2) requires estimation of kidney damage for at least three months as defined by structural or functional abnormalities of the kidney, manifested by either:Pathological abnormalities or Markers of kidney damage (including abnormalities in the composition of the blood or urine or abnormalities in imaging tests). Lab Interpretation Abnormal (test code = 34856-0) [facility] WITHOUT [id number] 10:39:23 Test Item Value Reference Range Interpretation Comments WBC (test code = 6690-2) See_Comment [A utomated message] The system [facility] generated this result transmit devonte reference range : 4.30 - 11.10 10*3/?L. The reference range was not used to interpret this result as normal/abnormal . RBC (test code = 789-8) See_Comment L [Au tomated message] The system [employer] generated this result transmit devonte reference range : 3.93 - 5.25 10* 6/?L. The reference r renu was not used to interpret this result as normal/abnormal . HGB (test code = 718-7) 9.8 g/dL 11.6-15.0 L HCT (test code = 4544-3) 29.7 % 35.7-45.2 L MCH (test code = 785-6) 30.5 pg 25.9-32.8 MCV (test code = 787-2) 92.5 fL 80.6-95.5 MCHC (test code = 786-4) 33.0 g/dL 31.6-35.1 PLT (test code = 777-3) See_Comment [Au tomated message] The system [employer] generated this result transmit devonte reference range : 166 - 358 10*3/?L. The reference range was not used to interpret this result as normal/abnormal . MPV (test code = 9.2 fL 9.5-12.9 L 85421-6) RDW-CV (test code = 13.3 % 12.0-15.5 788-0) RDW-SD (test code = 45.1 fL 39.0-49.9 07727-1) NRBC x10^3 (test code = See_Comment [Au tomated message] 1241668140) The system [facility] generated this result transmit devonte reference range : 10*3/?L. The reference range was not used to interpret this result as normal/abnormal . NRBC/100 WBC (test code See_Comment [Au tomated message] = 7595747430) The system [facility] generated this result transmit devonte reference range : 0.0 - 10.0 /100 WBC s. The reference r renu was not used to interpret this result as normal/abnormal . IPF % (test code = 6950668530) Lab Interpretation (test Abnormal code = 06375-6) [facility] WITHOUT [id number] 10:39:23 Test Item Value Reference Range Interpretation Comments WBC (test code = 6690-2) See_Comment [A utomated message] The system [facility] generated this result transmit devonte reference range : 4.30 - 11.10 10*3/?L. The reference range was not used to interpret this result as normal/abnormal . RBC (test code = 789-8) See_Comment L [Au tomated message] The system [facility] generated this result transmit devonte reference range : 3.93 - 5.25 10* 6/?L. The reference r renu was not used to interpret this result as normal/abnormal . HGB (test code = 718-7) 9.8 g/dL 11.6-15.0 L HCT (test code = 4544-3) 29.7 % 35.7-45.2 L MCH (test code = 785-6) 30.5 pg 25.9-32.8 MCV (test code = 787-2) 92.5 fL 80.6-95.5 MCHC (test code = 786-4) 33.0 g/dL 31.6-35.1 PLT (test code = 777-3) See_Comment [Au tomated message] The system [facility] generated this result transmit devonte reference range : 166 - 358 10*3/?L. The reference range was not used to interpret this result as normal/abnormal . MPV (test code = 9.2 fL 9.5-12.9 L 78390-6) RDW-CV (test code = 13.3 % 12.0-15.5 788-0) RDW-SD (test code = 45.1 fL 39.0-49.9 72356-2) NRBC x10^3 (test code = See_Comment [Au tomated message] 6365550184) The system [facility] generated this result transmit devonte reference range : 10*3/?L. The reference range was not used to interpret this result as normal/abnormal . NRBC/100 WBC (test code See_Comment [Au tomated message] = 9733591581) The system [facility] generated this result transmit devonte reference range : 0.0 - 10.0 /100 WBC s. The reference r renu was not used to interpret this result as normal/abnormal . IPF % (test code = 5400588470) Lab Interpretation (test Abnormal code = 82718-4) [facility] Only[facility]2022-06-14 05:25:33 Test Item Value Reference Range Interpretation Comments ABO & RH (test code A Positive Performe d at [facility] = 20) Laboratory [facility] Blood [address] [place] [address]Mbco Free: [phone] A No. [id number] [facility] (Lab Only)2022-06-14 05:25:33 Test Item Value Reference Range Interpretation Comments ABO & RH (test code A Positive Performe d at [facility] = 20) Laboratory [facility] Blood [address] [address]Xyqg Free: [phone] A No. [id number] [facility] - ONCE [id number] 05:18:09 Test Item Value Reference Range Interpretation Comments ABO & RH (test code A POSITIVE Performe d at [facility] = 20) Laboratory [facility] Blood [address] [address]Wmsl Free: [phone] A No. [id number] IAT (test code = Negative Performed a t [facility] 1185) Laboratory [facility] Blood [address] s [address]Xjvh Free: [phone] A No. [id number] [facility] and Screen - ONCE [id number] 05:18:09 Test Item Value Reference Range Interpretation Comments ABO & RH (test code A POSITIVE Performe d at [facility] = 20) Laboratory [facility] Blood [address] [address]Iehn Free: [phone] A No. [id number] IAT (test code = Negative Performed a t [facility] 1185) Laboratory [facility] Blood [address] s [address]Kuvk Free: [phone] A No. [id number] [facility]2022-06-14 05:15:15 Test Item Value Reference Range Interpretation Comments POCT GLU (test code = 5564520263) 114 mg/dL 70-110 H Lab Interpretation (test code = Abnormal 77246-5) [facility]2022-06-14 05:15:15 Test Item Value Reference Range Interpretation Comments POCT GLU (test code = 1572781176) 114 mg/dL 70-110 H Lab Interpretation (test code = Abnormal 09829-0) [facility] / [id number] 04:52:25 Test Item Value Reference Range Interpretation Comments PROTIME PATIENT (test See_Comment [Auto mated message] code = 5964-2) The system [employer] generated this result transmitted ref erence range: 10.1 - 1 2.6 Seconds. The re ference range was not u sed to interpret this result as normal/abnor mal. INR (test code = 6301-6) Nor mal INR <1.1; Warfarin Therap eutic range 2.0 to 3. 0 or 2.5 to 3.5, dep ending upon the indica tions. Lab Interpretation (test Normal code = 66220-9) [facility] 04:52:25 Test Item Value Reference Range Interpretation Comments APTT Patient (test code = See_Comment [ Automated message] 3173-2) The system [facility] generated this result transmitted ref erence range: 26 - 36 Seconds. The re ference range was not u sed to interpret this result as normal/abnor mal. Lab Interpretation (test Normal code = 33573-6) [facility] / [id number] 04:52:25 Test Item Value Reference Range Interpretation Comments PROTIME PATIENT (test See_Comment [Auto mated message] code = 5964-2) The system [employer] generated this result transmitted ref erence range: 10.1 - 1 2.6 Seconds. The re ference range was not u sed to interpret this result as normal/abnor mal. INR (test code = 6301-6) Nor mal INR <1.1; Warfarin Therap eutic range 2.0 to 3. 0 or 2.5 to 3.5, dep ending upon the indica tions. Lab Interpretation (test Normal code = 37818-8) [facility] 04:52:25 Test Item Value Reference Range Interpretation Comments APTT Patient (test code = See_Comment [ Automated message] 3173-2) The system [facility] generated this result transmitted ref erence range: 26 - 36 Seconds. The re ference range was not u sed to interpret this result as normal/abnor mal. Lab Interpretation (test Normal code = 93365-5) [facility] Hospital[facility] Whole [id number] 04:42:28 Test Item Value Reference Range Interpretation Comments LACTIC ACID (test code = 0.83 mmol/L 0.50-2.20 8333960782) Lab Interpretation (test code = Normal 72624-0) [facility] HospitalL[facility] Whole [id number] 04:42:28 Test Item Value Reference Range Interpretation Comments LACTIC ACID (test code = 0.83 mmol/L 0.50-2.20 2008309846) Lab Interpretation (test code = Normal 05764-2) [facility]CREAT[facility] [id number] 02:14:02 Test Item Value Reference Range Interpretation Comments CK (test code = 6843470631) 549 U/L 33-194 H Lab Interpretation (test code = Abnormal 05051-8) [facility] [id number] 02:14:02 Test Item Value Reference Range Interpretation Comments CK (test code = 6069499839) 549 U/L 33-194 H Lab Interpretation (test code = Abnormal 23697-4) [facility] METABOLIC PANEL (13994)2022-06-13 19:53:46 Test Item Value Reference Range Interpretation Comments NA (test code = 143 mmol/L 135-145 0325665946) K (test code = 4.4 mmol/L 3.5-5.0 2195732566) CL (test code = 109 mmol/L 98-108 H 2505834447) CO2 TOTAL (test code = 24 mmol/L 23-31 1094577298) AGAP (test code = 2-16 7313481389) BUN (test code = 28 mg/dL 7-23 H 4157341694) GLUCOSE (test code = 112 mg/dL 70-110 H 4764062475) CREATININE (test code = 0.88 mg/dL 0.50-1.04 0359779938) TOTAL BILI (test code = 0.9 mg/dL 0.1-1.7 2890102074) CALCIUM (test code = 8.7 mg/dL 8.6-10.6 6717652306) T PROTEIN (test code = 6.6 g/dL 6.3-8.2 1795640266) ALBUMIN (test code = 3.9 g/dL 3.5-5.0 0397725931) ALK PHOS (test code = 78 U/L 34-122 0341007589) ALTv (test code = 37 U/L 5-35 H 1742-6) AST(SGOT) (test code = 49 U/L 13-40 H 5794758868) eGFR (test code = mL/min/1.73m2 5355416902) DION (test code = DION) Association of Glomerular Filtration Rate (GFR) and Staging of Kidney Disease* + --+ --+ ------+| GFR (mL/min/1.73 m2) ?| With Kidney Damage ?| ?Without Kidney Damage+ --------+ --------+ +| ?>90 ?| ?Stage one ?| ? Normal ?+ ---+ ---+ -------+| ?60-89 ?| ?Stage two ?| ? Decreased GFR ? + --+ --+ ------+| ?30-59 ?| ?Stage three ?| ? Stage three ? + --+ --+ ------+| ?15-29 ?| ?Stage four ? | ? Stage four ?+ ---+ ---+ -------+| ?<15 (or dialysis) ? ?| ?Stage five ? | ? Stage five ?+ ---+ ---+ -------+ *Each stage assumes the associated GFR level has been in effect for at least three months. ?Stages 1 to 5, with or without kidney disease, indicate chronic kidney disease. Notes: Determination of stages one and two (with eGFR >59mL/min/1.73 m2) requires estimation of kidney damage for at least three months as defined by structural or functional abnormalities of the kidney, manifested by either:Pathological abnormalities or Markers of kidney damage (including abnormalities in the composition of the blood or urine or abnormalities in imaging tests). Lab Interpretation Abnormal (test code = [address]-8) [facility]. METABOLIC PANEL (65095)2022-06-13 19:53:46 Test Item Value Reference Range Interpretation Comments NA (test code = 143 mmol/L 135-145 0429607759) K (test code = 4.4 mmol/L 3.5-5.0 7546688661) CL (test code = 109 mmol/L 98-108 H 6929040909) CO2 TOTAL (test code = 24 mmol/L 23-31 1977721388) AGAP (test code = 2-16 5822851784) BUN (test code = 28 mg/dL 7-23 H 0818543879) GLUCOSE (test code = 112 mg/dL 70-110 H 9397213866) CREATININE (test code = 0.88 mg/dL 0.50-1.04 3371681041) TOTAL BILI (test code = 0.9 mg/dL 0.1-1.3 4877034275) CALCIUM (test code = 8.7 mg/dL 8.6-10.6 5563544156) T PROTEIN (test code = 6.6 g/dL 6.3-8.2 1503382205) ALBUMIN (test code = 3.9 g/dL 3.5-5.0 9108873751) ALK PHOS (test code = 78 U/L 34-122 9431649299) ALTv (test code = 37 U/L 5-35 H 1742-6) AST(SGOT) (test code = 49 U/L 13-40 H 4713829522) eGFR (test code = mL/min/1.73m2 0930170535) DION (test code = DION) Association of Glomerular Filtration Rate (GFR) and Staging of Kidney Disease* + --+ --+ ------+| GFR (mL/min/1.73 m2) ?| With Kidney Damage ?| ?Without Kidney Damage+ --------+ --------+ +| ?>90 ?| ?Stage one ?| ? Normal ?+ ---+ ---+ -------+| ?60-89 ?| ?Stage two ?| ? Decreased GFR ? + --+ --+ ------+| ?30-59 ?| ?Stage three ?| ? Stage three ? + --+ --+ ------+| ?15-29 ?| ?Stage four ? | ? Stage four ?+ ---+ ---+ -------+| ?<15 (or dialysis) ? ?| ?Stage five ? | ? Stage five ?+ ---+ ---+ -------+ *Each stage assumes the associated GFR level has been in effect for at least three months. ?Stages 1 to 5, with or without kidney disease, indicate chronic kidney disease. Notes: Determination of stages one and two (with eGFR >59mL/min/1.73 m2) requires estimation of kidney damage for at least three months as defined by structural or functional abnormalities of the kidney, manifested by either:Pathological abnormalities or Markers of kidney damage (including abnormalities in the composition of the blood or urine or abnormalities in imaging tests). Lab Interpretation Abnormal (test code = 17561-1) [facility] WITH [id number] 19:39:26 Test Item Value Reference Range Interpretation Comments WBC (test code = See_Comment [Automated 9777-2) message] The sy stem which generated this result transmitted reference range : 4.30 - 11.10 10*3/?L. The reference range was not used to interpret this result as normal/abnormal . RBC (test code = See_Comment L [Automated 499-8) message] The sy stem which generated this result transmitted reference range : 3.93 - 5.25 10*6/?L. The reference range was not used to interpret this result as normal/abnormal . HGB (test code = 11.5 g/dL 11.6-15.0 L 718-7) HCT (test code = 35.1 % 35.7-45.2 L 4544-3) MCV (test code = 92.6 fL 80.6-95.5 787-2) MCH (test code = 30.3 pg 25.9-32.8 785-6) MCHC (test code = 32.8 g/dL 31.6-35.1 786-4) RDW-SD (test code = 45.6 fL 39.0-49.9 29147-3) RDW-CV (test code = 13.3 % 12.0-15.5 788-0) PLT (test code = See_Comment [Automated 097-3) message] The sy stem which generated this result transmitted reference range : 166 - 358 10*3/ ?L. The reference r renu was not used to interpret this result as normal/abnormal . MPV (test code = 9.1 fL 9.5-12.9 L 82893-7) NRBC/100 WBC (test See_Comment [Automat ed code = 0410012837) message] The system which generated this result transmitted reference range : 0.0 - 10.0 /100 WBCs. The refer ence range was not u sed to interpret th is result as normal/abnormal . NRBC x10^3 (test code See_Comment [Auto mated = 9159726078) message] The s ystem which generated this result transmitted reference range : 10*3/?L. The reference range was not used to interpret this result as normal/abnormal . GRAN MAT (NEUT) % 78.7 % (test code = 770-8) IMM GRAN % (test code 0.90 % = 7650142193) LYMPH % (test code = 11.1 % 736-9) MONO % (test code = 7.1 % 5905-5) EOS % (test code = 1.8 % 713-8) BASO % (test code = 0.4 % 706-2) GRAN MAT x10^3(ANC) 8.27 10*3/uL 1.88-7.09 H (test code = 2979277713) IMM GRAN x10^3 (test 0.09 10*3/uL 0.00-0.06 H code = 5934514477) LYMPH x10^3 (test code 1.16 10*3/uL 1.32-3.29 L = 731-0) MONO x10^3 (test code 0.74 10*3/uL 0.33-0.92 = 742-7) EOS x10^3 (test code = 0.19 10*3/uL 0.03-0.39 711-2) BASO x10^3 (test code 0.04 10*3/uL 0.01-0.07 = 704-7) Lab Interpretation Abnormal (test code = 30052-4) [facility] WITH [id number] 19:39:26 Test Item Value Reference Range Interpretation Comments WBC (test code = See_Comment [Automated 6690-2) message] The sy stem which generated this result transmitted reference range : 4.30 - 11.10 10*3/?L. The reference range was not used to interpret this result as normal/abnormal . RBC (test code = See_Comment L [Automated 789-8) message] The sy stem which generated this result transmitted reference range : 3.93 - 5.25 10*6/?L. The reference range was not used to interpret this result as normal/abnormal . HGB (test code = 11.5 g/dL 11.6-15.0 L 718-7) HCT (test code = 35.1 % 35.7-45.2 L 4544-3) MCV (test code = 92.6 fL 80.6-95.5 787-2) MCH (test code = 30.3 pg 25.9-32.8 785-6) MCHC (test code = 32.8 g/dL 31.6-35.1 786-4) RDW-SD (test code = 45.6 fL 39.0-49.9 77752-1) RDW-CV (test code = 13.3 % 12.0-15.5 788-0) PLT (test code = See_Comment [Automated 777-3) message] The sy stem which generated this result transmitted reference range : 166 - 358 10*3/ ?L. The reference r renu was not used to interpret this result as normal/abnormal . MPV (test code = 9.1 fL 9.5-12.9 L 40720-6) NRBC/100 WBC (test See_Comment [Automat ed code = 0369012763) message] The system which generated this result transmitted reference range : 0.0 - 10.0 /100 WBCs. The refer ence range was not u sed to interpret th is result as normal/abnormal . NRBC x10^3 (test code See_Comment [Auto mated = 9562468923) message] The s ystem which generated this result transmitted reference range : 10*3/?L. The reference range was not used to interpret this result as normal/abnormal . GRAN MAT (NEUT) % 78.7 % (test code = 770-8) IMM GRAN % (test code 0.90 % = 0105904722) LYMPH % (test code = 11.1 % 736-9) MONO % (test code = 7.1 % 5905-5) EOS % (test code = 1.8 % 713-8) BASO % (test code = 0.4 % 706-2) GRAN MAT x10^3(ANC) 8.27 10*3/uL 1.88-7.09 H (test code = 7383976884) IMM GRAN x10^3 (test 0.09 10*3/uL 0.00-0.06 H code = 7217460135) LYMPH x10^3 (test code 1.16 10*3/uL 1.32-3.29 L = 731-0) MONO x10^3 (test code 0.74 10*3/uL 0.33-0.92 = 742-7) EOS x10^3 (test code = 0.19 10*3/uL 0.03-0.39 711-2) BASO x10^3 (test code 0.04 10*3/uL 0.01-0.07 = 704-7) Lab Interpretation Abnormal (test code = 14153-9) [facility] [id number] 12:51:00 Test Item Value Reference Range Interpretation Comments POC-GLUCOSE METER 135 mg/dL 70-110 H TESTED AT [place] [address] ([facility]) (test code = [facility] 1538) [address] POCT-GLUCOSE [id number] 08:35:00 Test Item Value Reference Range Interpretation Comments POC-GLUCOSE METER 98 mg/dL 70-110 TESTED AT [place] [address] ([facility]) (test code = [facility] [address] 1538) [id number] 07:00:00 Test Item Value Reference Range Interpretation Comments PHOSPHORUS (BEAKER) (test code = 3.7 mg/dL 2.3-4.7 604) [id number] 07:00:00 Test Item Value Reference Range Interpretation Comments MAGNESIUM (BEAKER) (test code = 2.2 mg/dL 1.6-2.6 627) BASIC METABOLIC [id number] 07:00:00 Test Item Value Reference Range Interpretation Comments SODIUM (BEAKER) 136 meq/L 136-145 (test code = 381) POTASSIUM (BEAKER) 4.2 meq/L 3.5-5.1 (test code = 379) CHLORIDE (BEAKER) 104 meq/L 98-107 (test code = 382) CO2 (BEAKER) (test 27 meq/L 22-29 code = 355) BLOOD UREA NITROGEN 14 mg/dL 7-21 (BEAKER) (test code = 354) CREATININE (BEAKER) 0.66 mg/dL 0.57-1.25 (test code = 358) GLUCOSE RANDOM 93 mg/dL 70-105 (BEAKER) (test code = 652) CALCIUM (BEAKER) 8.9 mg/dL 8.4-10.2 (test code = 697) EGFR (BEAKER) (test 86 mL/min/1.73 ESTIMA DEVONTE GFR IS code = 1092) sq m NOT ACCURATE CREATININE CLEARANCE IN PREDICTING GLOMERULAR FILTRATION RATE . ESTIMATED GFR I S NOT APPLICABLE FOR DIALYSIS PATIEN TS. CBC W/PLT COUNT & AUTO [id number] 06:37:00 Test Item Value Reference Range Interpretation Comments WHITE BLOOD CELL COUNT (BEAKER) 7.5 K/ L 3.5-10.5 (test code = 775) RED BLOOD CELL COUNT (BEAKER) 3.46 M/ L 3.93-5.22 L (test code = 761) HEMOGLOBIN (BEAKER) (test code = 10.3 GM/DL 11.2-15.7 L 410) HEMATOCRIT (BEAKER) (test code = 32.4 % 34.1-44.9 L 411) MEAN CORPUSCULAR VOLUME (BEAKER) 93.6 fL 79.4-94.8 (test code = 753) MEAN CORPUSCULAR HEMOGLOBIN 29.8 pg 25.6-32.2 (BEAKER) (test code = 751) MEAN CORPUSCULAR HEMOGLOBIN CONC 31.8 GM/DL 32.2-35.5 L (BEAKER) (test code = 752) RED CELL DISTRIBUTION WIDTH 11.8 % 11.7-14.4 (BEAKER) (test code = 412) PLATELET COUNT (BEAKER) (test 464 K/CU MM 150-450 H code = 756) MEAN PLATELET VOLUME (BEAKER) 9.4 fL 9.4-12.3 (test code = 754) NUCLEATED RED BLOOD CELLS 0 /100 WBC 0-0 (BEAKER) (test code = 413) NEUTROPHILS RELATIVE PERCENT 61 % (BEAKER) (test code = 429) LYMPHOCYTES RELATIVE PERCENT 26 % (BEAKER) (test code = 430) MONOCYTES RELATIVE PERCENT 9 % (BEAKER) (test code = 431) EOSINOPHILS RELATIVE PERCENT 3 % (BEAKER) (test code = 432) BASOPHILS RELATIVE PERCENT 1 % (BEAKER) (test code = 437) NEUTROPHILS ABSOLUTE COUNT 4.60 K/ L 1.56-6.13 (BEAKER) (test code = 670) LYMPHOCYTES ABSOLUTE COUNT 1.94 K/ L 1.18-3.74 (BEAKER) (test code = 414) MONOCYTES ABSOLUTE COUNT (BEAKER) 0.66 K/ L 0.24-0.36 H (test code = 415) EOSINOPHILS ABSOLUTE COUNT 0.25 K/ L 0.04-0.36 (BEAKER) (test code = 416) BASOPHILS ABSOLUTE COUNT (BEAKER) 0.05 K/ L 0.01-0.08 (test code = 417) IMMATURE GRANULOCYTES-RELATIVE 1 % 0-1 PERCENT (BEAKER) (test code = 2801) POCT-GLUCOSE [id number] 20:34:00 Test Item Value Reference Range Interpretation Comments POC-GLUCOSE METER 144 mg/dL 70-110 H TESTED AT [place] [address] ([facility]) (test code = [facility] 1538) [address] POCT-GLUCOSE [id number] 13:04:00 Test Item Value Reference Range Interpretation Comments POC-GLUCOSE METER 114 mg/dL 70-110 H TESTED AT [place] [address] ([facility]) (test code = [facility] 1538) [address] POCT-GLUCOSE [id number] 08:26:00 Test Item Value Reference Range Interpretation Comments POC-GLUCOSE METER 104 mg/dL 70-110 TESTED AT [place] [address] ([facility]) (test code = [facility] 1538) [address] CALCIUM, [id number] 05:25:00 Test Item Value Reference Range Interpretation Comments CALCIUM IONIZED (BEAKER) (test 1.05 mmol/L 1.12-1.27 L code = 698) PH, BLOOD (AKER) (test code = 7.40 1810) [id number] 04:36:00 Test Item Value Reference Range Interpretation Comments PHOSPHORUS (BEAKER) (test code = 3.4 mg/dL 2.3-4.7 604) [id number] 04:36:00 Test Item Value Reference Range Interpretation Comments MAGNESIUM (BEAKER) (test code = 2.1 mg/dL 1.6-2.6 627) BASIC METABOLIC [id number] 04:36:00 Test Item Value Reference Range Interpretation Comments SODIUM (BEAKER) 133 meq/L 136-145 L (test code = 381) POTASSIUM (BEAKER) 4.1 meq/L 3.5-5.1 (test code = 379) CHLORIDE (BEAKER) 103 meq/L 98-107 (test code = 382) CO2 (BEAKER) (test 21 meq/L 22-29 L code = 355) BLOOD UREA NITROGEN 15 mg/dL 7-21 (BEAKER) (test code = 354) CREATININE (BEAKER) 0.70 mg/dL 0.57-1.25 (test code = 358) GLUCOSE RANDOM 107 mg/dL 70-105 H (BEAKER) (test code = 652) CALCIUM (BEAKER) 8.9 mg/dL 8.4-10.2 (test code = 697) EGFR (BEAKER) (test 81 mL/min/1.73 ESTIMA DEVONTE GFR IS code = 1092) sq m NOT ACCURATE CREATININE CLEARANCE IN PREDICTING GLOMERULAR FILTRATION RATE . ESTIMATED GFR I S NOT APPLICABLE FOR DIALYSIS PATIEN TS. CBC W/PLT COUNT & AUTO [id number] 04:21:00 Test Item Value Reference Range Interpretation Comments WHITE BLOOD CELL COUNT (BEAKER) 10.0 K/ L 3.5-10.5 (test code = 775) RED BLOOD CELL COUNT (BEAKER) 3.63 M/ L 3.93-5.22 L (test code = 761) HEMOGLOBIN (BEAKER) (test code = 10.7 GM/DL 11.2-15.7 L 410) HEMATOCRIT (BEAKER) (test code = 33.5 % 34.1-44.9 L 411) MEAN CORPUSCULAR VOLUME (BEAKER) 92.3 fL 79.4-94.8 (test code = 753) MEAN CORPUSCULAR HEMOGLOBIN 29.5 pg 25.6-32.2 (BEAKER) (test code = 751) MEAN CORPUSCULAR HEMOGLOBIN CONC 31.9 GM/DL 32.2-35.5 L (BEAKER) (test code = 752) RED CELL DISTRIBUTION WIDTH 11.8 % 11.7-14.4 (BEAKER) (test code = 412) PLATELET COUNT (BEAKER) (test 434 K/CU MM 150-450 code = 756) MEAN PLATELET VOLUME (BEAKER) 8.6 fL 9.4-12.3 L (test code = 754) NUCLEATED RED BLOOD CELLS 0 /100 WBC 0-0 (BEAKER) (test code = 413) NEUTROPHILS RELATIVE PERCENT 64 % (BEAKER) (test code = 429) LYMPHOCYTES RELATIVE PERCENT 24 % (BEAKER) (test code = 430) MONOCYTES RELATIVE PERCENT 8 % (BEAKER) (test code = 431) EOSINOPHILS RELATIVE PERCENT 3 % (BEAKER) (test code = 432) BASOPHILS RELATIVE PERCENT 1 % (BEAKER) (test code = 437) NEUTROPHILS ABSOLUTE COUNT 6.44 K/ L 1.56-6.13 H (BEAKER) (test code = 670) LYMPHOCYTES ABSOLUTE COUNT 2.37 K/ L 1.18-3.74 (BEAKER) (test code = 414) MONOCYTES ABSOLUTE COUNT (BEAKER) 0.81 K/ L 0.24-0.36 H (test code = 415) EOSINOPHILS ABSOLUTE COUNT 0.27 K/ L 0.04-0.36 (BEAKER) (test code = 416) BASOPHILS ABSOLUTE COUNT (BEAKER) 0.05 K/ L 0.01-0.08 (test code = 417) IMMATURE GRANULOCYTES-RELATIVE 1 % 0-1 PERCENT (BEAKER) (test code = 2801) POCT-GLUCOSE [id number] 21:36:00 Test Item Value Reference Range Interpretation Comments POC-GLUCOSE METER 132 mg/dL 70-110 H TESTED AT [place] [address] ([facility]) (test code = [facility] 1538) [address] POCT-GLUCOSE [id number] 17:00:00 Test Item Value Reference Range Interpretation Comments POC-GLUCOSE METER 96 mg/dL 70-110 TESTED AT [facility] [address] ([facility]) (test code = [facility] [address] 1538) POCT-GLUCOSE [id number] 12:37:00 Test Item Value Reference Range Interpretation Comments POC-GLUCOSE METER 134 mg/dL 70-110 H TESTED AT [facility] 6720 (BEAKER) (test code = [facility] [place] 1538) [address] POCT-GLUCOSE [id number] 08:31:00 Test Item Value Reference Range Interpretation Comments POC-GLUCOSE METER 110 mg/dL 70-110 TESTED AT [facility] 6720 (BEAKER) (test code = [facility] [place] 1538) [address] [id number] 07:03:00 Test Item Value Reference Range Interpretation Comments MAGNESIUM (BEAKER) (test code = 2.0 mg/dL 1.6-2.6 627) BASIC METABOLIC [id number] 07:03:00 Test Item Value Reference Range Interpretation Comments SODIUM (BEAKER) 132 meq/L 136-145 L (test code = 381) POTASSIUM (BEAKER) 4.0 meq/L 3.5-5.1 (test code = 379) CHLORIDE (BEAKER) 103 meq/L 98-107 (test code = 382) CO2 (BEAKER) (test 22 meq/L 22-29 code = 355) BLOOD UREA NITROGEN 18 mg/dL 7-21 (BEAKER) (test code = 354) CREATININE (BEAKER) 0.72 mg/dL 0.57-1.25 (test code = 358) GLUCOSE RANDOM 108 mg/dL 70-105 H (BEAKER) (test code = 652) CALCIUM (BEAKER) 8.5 mg/dL 8.4-10.2 (test code = 697) EGFR (BEAKER) (test 78 mL/min/1.73 ESTIMA DEVONTE GFR IS code = 1092) sq m NOT ACCURATE CREATININE CLEARANCE IN PREDICTING GLOMERULAR FILTRATION RATE . ESTIMATED GFR I S NOT APPLICABLE FOR DIALYSIS PATIEN TS. [id number] 07:03:00 Test Item Value Reference Range Interpretation Comments PHOSPHORUS (BEAKER) (test code = 3.3 mg/dL 2.3-4.7 604) POCT-GLUCOSE [id number] 21:23:00 Test Item Value Reference Range Interpretation Comments POC-GLUCOSE METER 136 mg/dL 70-110 H TESTED AT [facility] 6720 (BEAKER) (test code = [facility] [place] 1538) [address] POCT-GLUCOSE [id number] 17:51:00 Test Item Value Reference Range Interpretation Comments POC-GLUCOSE METER 155 mg/dL 70-110 H TESTED AT [place] [address] (BEAKER) (test code = [facility] 1538) [address] URINALYSIS W/ REFLEX URINE [id number] 16:37:00 Test Item Value Reference Range Interpretation Comments COLOR (BEAKER) (test code = 470) Yellow CLARITY (BEAKER) (test code = 469) Hazy SPECIFIC GRAVITY UA (BEAKER) (test 1.012 1.001-1.035 code = 468) PH UA (BEAKER) (test code = 467) 5.5 5.0-8.0 PROTEIN UA (BEAKER) (test code = 30 mg/dL Negative A 464) GLUCOSE UA (BEAKER) (test code = Negative Negative 365) KETONES UA (BEAKER) (test code = 40 mg/dL Negative A 371) BILIRUBIN UA (BEAKER) (test code = Negative Negative 462) BLOOD UA (BEAKER) (test code = Large Negative A 461) NITRITE UA (BEAKER) (test code = Positive Negative A 465) LEUKOCYTE ESTERASE UA (BEAKER) Large Negative A (test code = 466) UROBILINOGEN UA (BEAKER) (test 0.2 mg/dL 0.2-1.0 code = 463) RBC UA (BEAKER) (test code = 519) 11 /HPF WBC UA (BEAKER) (test code = 520) 51 /HPF BACTERIA (BEAKER) (test code = Occasional 517) SOURCE(BEAKER) (test code = 2795) POCT-GLUCOSE [id number] 12:26:00 Test Item Value Reference Range Interpretation Comments POC-GLUCOSE METER 98 mg/dL 70-110 TESTED AT [facility] 6720 (BEAKER) (test code = [facility] [address] 1538) POCT-GLUCOSE [id number] 08:31:00 Test Item Value Reference Range Interpretation Comments POC-GLUCOSE METER 101 mg/dL 70-110 TESTED AT [place] [id number] (BEAKER) (test code = [facility] 1538) [address] [id number] 06:37:00 Test Item Value Reference Range Interpretation Comments PHOSPHORUS (BEAKER) (test code = 3.6 mg/dL 2.3-4.7 604) [id number] 06:37:00 Test Item Value Reference Range Interpretation Comments MAGNESIUM (BEAKER) (test code = 2.3 mg/dL 1.6-2.6 627) BASIC METABOLIC [id number] 06:37:00 Test Item Value Reference Range Interpretation Comments SODIUM (BEAKER) 135 meq/L 136-145 L (test code = 381) POTASSIUM (BEAKER) 4.6 meq/L 3.5-5.1 (test code = 379) CHLORIDE (BEAKER) 104 meq/L 98-107 (test code = 382) CO2 (BEAKER) (test 22 meq/L 22-29 code = 355) BLOOD UREA NITROGEN 11 mg/dL 7-21 (BEAKER) (test code = 354) CREATININE (BEAKER) 0.72 mg/dL 0.57-1.25 (test code = 358) GLUCOSE RANDOM 97 mg/dL 70-105 (BEAKER) (test code = 652) CALCIUM (BEAKER) 9.4 mg/dL 8.4-10.2 (test code = 697) EGFR (BEAKER) (test 78 mL/min/1.73 ESTIMA DEVONTE GFR IS code = 1092) sq m NOT ACCURATE CREATININE CLEARANCE IN PREDICTING GLOMERULAR FILTRATION RATE . ESTIMATED GFR I S NOT APPLICABLE FOR DIALYSIS PATIEN TS. CBC W/PLT COUNT & AUTO [id number] 05:35:00 Test Item Value Reference Range Interpretation Comments WHITE BLOOD CELL COUNT (BEAKER) 9.4 K/ L 3.5-10.5 (test code = 775) RED BLOOD CELL COUNT (BEAKER) 3.78 M/ L 3.93-5.22 L (test code = 761) HEMOGLOBIN (BEAKER) (test code = 11.1 GM/DL 11.2-15.7 L 410) HEMATOCRIT (BEAKER) (test code = 35.8 % 34.1-44.9 411) MEAN CORPUSCULAR VOLUME (BEAKER) 94.7 fL 79.4-94.8 (test code = 753) MEAN CORPUSCULAR HEMOGLOBIN 29.4 pg 25.6-32.2 (BEAKER) (test code = 751) MEAN CORPUSCULAR HEMOGLOBIN CONC 31.0 GM/DL 32.2-35.5 L (BEAKER) (test code = 752) RED CELL DISTRIBUTION WIDTH 11.9 % 11.7-14.4 (BEAKER) (test code = 412) PLATELET COUNT (BEAKER) (test 431 K/CU MM 150-450 code = 756) MEAN PLATELET VOLUME (BEAKER) 9.1 fL 9.4-12.3 L (test code = 754) NUCLEATED RED BLOOD CELLS 0 /100 WBC 0-0 (BEAKER) (test code = 413) NEUTROPHILS RELATIVE PERCENT 70 % (BEAKER) (test code = 429) LYMPHOCYTES RELATIVE PERCENT 17 % (BEAKER) (test code = 430) MONOCYTES RELATIVE PERCENT 10 % (BEAKER) (test code = 431) EOSINOPHILS RELATIVE PERCENT 3 % (BEAKER) (test code = 432) BASOPHILS RELATIVE PERCENT 0 % (BEAKER) (test code = 437) NEUTROPHILS ABSOLUTE COUNT 6.54 K/ L 1.56-6.13 H (BEAKER) (test code = 670) LYMPHOCYTES ABSOLUTE COUNT 1.56 K/ L 1.18-3.74 (BEAKER) (test code = 414) MONOCYTES ABSOLUTE COUNT (BEAKER) 0.94 K/ L 0.24-0.36 H (test code = 415) EOSINOPHILS ABSOLUTE COUNT 0.25 K/ L 0.04-0.36 (BEAKER) (test code = 416) BASOPHILS ABSOLUTE COUNT (BEAKER) 0.04 K/ L 0.01-0.08 (test code = 417) IMMATURE GRANULOCYTES-RELATIVE 0 % 0-1 PERCENT (BEAKER) (test code = 2801) POCT-GLUCOSE [id number] 21:14:00 Test Item Value Reference Range Interpretation Comments POC-GLUCOSE METER 117 mg/dL 70-110 H TESTED AT [facility] 6720 (BEAKER) (test code = [facility] 1538) [address] POCT-GLUCOSE [id number] 16:25:00 Test Item Value Reference Range Interpretation Comments POC-GLUCOSE METER 132 mg/dL 70-110 H TESTED AT [facility] 6720 (BEAKER) (test code = [facility] [place] 1538) [address] BASIC METABOLIC [id number] 12:48:00 Test Item Value Reference Range Interpretation Comments SODIUM (BEAKER) 132 meq/L 136-145 L (test code = 381) POTASSIUM (BEAKER) 4.5 meq/L 3.5-5.1 (test code = 379) CHLORIDE (BEAKER) 102 meq/L 98-107 (test code = 382) CO2 (BEAKER) (test 24 meq/L 22-29 code = 355) BLOOD UREA NITROGEN 14 mg/dL 7-21 (BEAKER) (test code = 354) CREATININE (BEAKER) 0.74 mg/dL 0.57-1.25 (test code = 358) GLUCOSE RANDOM 105 mg/dL 70-105 (BEAKER) (test code = 652) CALCIUM (BEAKER) 8.9 mg/dL 8.4-10.2 (test code = 697) EGFR (BEAKER) (test 76 mL/min/1.73 ESTIMA DEVONTE GFR IS code = 1092) sq m NOT ACCURATE CREATININE CLEARANCE IN PREDICTING GLOMERULAR FILTRATION RATE . ESTIMATED GFR I S NOT APPLICABLE FOR DIALYSIS PATIEN TS. POCT-GLUCOSE [id number] 12:01:00 Test Item Value Reference Range Interpretation Comments POC-GLUCOSE METER 144 mg/dL 70-110 H TESTED AT [facility] [address] ([facility]) (test code = [facility] 1538) [id number] 11:45:00 Test Item Value Reference Range Interpretation Comments PHOSPHORUS (BEAKER) (test code = 2.6 mg/dL 2.3-4.7 604) [id number] 11:45:00 Test Item Value Reference Range Interpretation Comments MAGNESIUM (BEAKER) (test code = 1.6 mg/dL 1.6-2.6 627) POCT-GLUCOSE [id number] 08:32:00 Test Item Value Reference Range Interpretation Comments POC-GLUCOSE METER 145 mg/dL 70-110 H TESTED AT [facility] [address] ([facility]) (test code = [facility] 1538) [id number] TSH/FREE T4 IF [id number] 06:32:00 Test Item Value Reference Range Interpretation Comments THYROID STIMULATING HORMONE 1.61 uIU/mL 0.35-4.94 (BEAKER) (test code = 772) CALCIUM, [id number] 05:02:00 Test Item Value Reference Range Interpretation Comments CALCIUM IONIZED (BEAKER) (test 1.09 mmol/L 1.12-1.27 L code = 698) PH, BLOOD (BEAKER) (test code = 7.45 1810) CBC W/PLT COUNT & AUTO [id number] 04:25:00 Test Item Value Reference Range Interpretation Comments WHITE BLOOD CELL COUNT (BEAKER) 9.4 K/ L 3.5-10.5 (test code = 775) RED BLOOD CELL COUNT (BEAKER) 3.64 M/ L 3.93-5.22 L (test code = 761) HEMOGLOBIN (BEAKER) (test code = 10.8 GM/DL 11.2-15.7 L 410) HEMATOCRIT (BEAKER) (test code = 33.8 % 34.1-44.9 L 411) MEAN CORPUSCULAR VOLUME (BEAKER) 92.9 fL 79.4-94.8 (test code = 753) MEAN CORPUSCULAR HEMOGLOBIN 29.7 pg 25.6-32.2 (BEAKER) (test code = 751) MEAN CORPUSCULAR HEMOGLOBIN CONC 32.0 GM/DL 32.2-35.5 L (BEAKER) (test code = 752) RED CELL DISTRIBUTION WIDTH 11.9 % 11.7-14.4 (BEAKER) (test code = 412) PLATELET COUNT (BEAKER) (test 433 K/CU MM 150-450 code = 756) MEAN PLATELET VOLUME (BEAKER) 9.0 fL 9.4-12.3 L (test code = 754) NUCLEATED RED BLOOD CELLS 0 /100 WBC 0-0 (BEAKER) (test code = 413) NEUTROPHILS RELATIVE PERCENT 68 % (BEAKER) (test code = 429) LYMPHOCYTES RELATIVE PERCENT 19 % (BEAKER) (test code = 430) MONOCYTES RELATIVE PERCENT 10 % (BEAKER) (test code = 431) EOSINOPHILS RELATIVE PERCENT 2 % (BEAKER) (test code = 432) BASOPHILS RELATIVE PERCENT 1 % (BEAKER) (test code = 437) NEUTROPHILS ABSOLUTE COUNT 6.42 K/ L 1.56-6.13 H (BEAKER) (test code = 670) LYMPHOCYTES ABSOLUTE COUNT 1.75 K/ L 1.18-3.74 (BEAKER) (test code = 414) MONOCYTES ABSOLUTE COUNT (BEAKER) 0.94 K/ L 0.24-0.36 H (test code = 415) EOSINOPHILS ABSOLUTE COUNT 0.22 K/ L 0.04-0.36 (BEAKER) (test code = 416) BASOPHILS ABSOLUTE COUNT (BEAKER) 0.05 K/ L 0.01-0.08 (test code = 417) IMMATURE GRANULOCYTES-RELATIVE 1 % 0-1 PERCENT (BEAKER) (test code = 2801) POCT-GLUCOSE [id number] 22:49:00 Test Item Value Reference Range Interpretation Comments POC-GLUCOSE METER 129 mg/dL 70-110 H TESTED AT [place] [address] ([facility]) (test code = [facility] 1538) [id number] POCT-GLUCOSE [id number] 18:19:00 Test Item Value Reference Range Interpretation Comments POC-GLUCOSE METER 107 mg/dL 70-110 TESTED AT [place] [address] ([facility]) (test code = [facility] 1538) [id number] POCT-GLUCOSE [id number] 12:36:00 Test Item Value Reference Range Interpretation Comments POC-GLUCOSE METER 128 mg/dL 70-110 H TESTED AT [place] [address] ([facility]) (test code = [facility] 1538) [id number] POCT-GLUCOSE [id number] 08:29:00 Test Item Value Reference Range Interpretation Comments POC-GLUCOSE METER 110 mg/dL 70-110 TESTED AT [place] [address] ([facility]) (test code = [facility] 1538) [id number] 04:57:00 Test Item Value Reference Range Interpretation Comments PHOSPHORUS (BEAKER) (test code = 4.2 mg/dL 2.3-4.7 604) [id number] 04:57:00 Test Item Value Reference Range Interpretation Comments MAGNESIUM (BEAKER) (test code = 2.4 mg/dL 1.6-2.6 627) BASIC METABOLIC [id number] 04:57:00 Test Item Value Reference Range Interpretation Comments SODIUM (BEAKER) 134 meq/L 136-145 L (test code = 381) POTASSIUM (BEAKER) 4.5 meq/L 3.5-5.1 (test code = 379) CHLORIDE (BEAKER) 103 meq/L 98-107 (test code = 382) CO2 (BEAKER) (test 22 meq/L 22-29 code = 355) BLOOD UREA NITROGEN 13 mg/dL 7-21 (BEAKER) (test code = 354) CREATININE (BEAKER) 0.79 mg/dL 0.57-1.25 (test code = 358) GLUCOSE RANDOM 106 mg/dL 70-105 H (BEAKER) (test code = 652) CALCIUM (BEAKER) 9.4 mg/dL 8.4-10.2 (test code = 697) EGFR (BEAKER) (test 70 mL/min/1.73 ESTIMA DEVONTE GFR IS code = 1092) sq m NOT ACCURATE CREATININE CLEARANCE IN PREDICTING GLOMERULAR FILTRATION RATE . ESTIMATED GFR I S NOT APPLICABLE FOR DIALYSIS PATIEN TS. CBC W/PLT COUNT & AUTO [id number] 04:19:00 Test Item Value Reference Range Interpretation Comments WHITE BLOOD CELL COUNT (BEAKER) 8.3 K/ L 3.5-10.5 (test code = 775) RED BLOOD CELL COUNT (BEAKER) 4.06 M/ L 3.93-5.22 (test code = 761) HEMOGLOBIN (BEAKER) (test code = 12.1 GM/DL 11.2-15.7 410) HEMATOCRIT (BEAKER) (test code = 38.5 % 34.1-44.9 411) MEAN CORPUSCULAR VOLUME (BEAKER) 94.8 fL 79.4-94.8 (test code = 753) MEAN CORPUSCULAR HEMOGLOBIN 29.8 pg 25.6-32.2 (BEAKER) (test code = 751) MEAN CORPUSCULAR HEMOGLOBIN CONC 31.4 GM/DL 32.2-35.5 L (BEAKER) (test code = 752) RED CELL DISTRIBUTION WIDTH 11.9 % 11.7-14.4 (BEAKER) (test code = 412) PLATELET COUNT (BEAKER) (test 429 K/CU MM 150-450 code = 756) MEAN PLATELET VOLUME (BEAKER) 8.8 fL 9.4-12.3 L (test code = 754) NUCLEATED RED BLOOD CELLS 0 /100 WBC 0-0 (BEAKER) (test code = 413) NEUTROPHILS RELATIVE PERCENT 65 % (BEAKER) (test code = 429) LYMPHOCYTES RELATIVE PERCENT 21 % (BEAKER) (test code = 430) MONOCYTES RELATIVE PERCENT 10 % (BEAKER) (test code = 431) EOSINOPHILS RELATIVE PERCENT 3 % (BEAKER) (test code = 432) BASOPHILS RELATIVE PERCENT 1 % (BEAKER) (test code = 437) NEUTROPHILS ABSOLUTE COUNT 5.39 K/ L 1.56-6.13 (BEAKER) (test code = 670) LYMPHOCYTES ABSOLUTE COUNT 1.77 K/ L 1.18-3.74 (BEAKER) (test code = 414) MONOCYTES ABSOLUTE COUNT (BEAKER) 0.83 K/ L 0.24-0.36 H (test code = 415) EOSINOPHILS ABSOLUTE COUNT 0.21 K/ L 0.04-0.36 (BEAKER) (test code = 416) BASOPHILS ABSOLUTE COUNT (BEAKER) 0.05 K/ L 0.01-0.08 (test code = 417) IMMATURE GRANULOCYTES-RELATIVE 0 % 0-1 PERCENT (BEAKER) (test code = 2801) POCT-GLUCOSE [id number] 22:12:00 Test Item Value Reference Range Interpretation Comments POC-GLUCOSE METER 149 mg/dL 70-110 H TESTED AT [facility] [address] ([facility]) (test code = [place] 1538) [id number] CT BRAIN WITHOUT IV CONTRAST - [id number] 21:28:00Reason for exam:- >reevaluation of SDHFINAL REPORT CT Head without contrast [...] The right lateral cerebral hemispheric subdural hematoma hasdecreased in size and density. Mild mass effect on the right temporal lobe is similarly decreased wit hout midline shift. Generalized parenchymal volume loss is again noted without hydrocephalus. There is no definitive CT evidence for an acute ischemic infarct. The skull is intact. IMPRESSION: Since 02/20/2018, the right lateral cerebral hemispheric subdural hematoma has decreased in size. Signed: Cholo Lynne MDReport Verified Date/Time: 03/02/2018 21:28:16 [facility] POCT-GLUCOSE [id number] 17:07:00 Test Item Value Reference Range Interpretation Comments POC-GLUCOSE METER 108 mg/dL 70-110 TESTED AT [facility] [address] ([facility]) (test code = [place] 1538) [id number] POCT-GLUCOSE [id number] 12:10:00 Test Item Value Reference Range Interpretation Comments POC-GLUCOSE METER 99 mg/dL 70-110 TESTED AT [facility] [address] ([facility]) (test code = [place] [address] 1538) EEG AWAKE AND [id number] 11:05:00Reason for exam:->AMSDate of EE03/02/18DATE OF REPORT: 03/02/18ACC: [id number] Number: [id number] Location: ICUStart time: 9:04Stop time: 9:25ICD-10: R56.9CPT Code: 50702 HISTORY: Ms. Arredondo is a 78 y/o female with Parkinson's Disease, s/p R lateral SDH, now with twitching of left face MEDICATIONS THAT COULD AFFECT EEG: [place] TECHNICAL SUMMARY: This is a digital video-EEG recorded with 32 input channels reviewed withbipolar and referential montages using the modified combinatorial system nomenclature. DESCRIPTION OF RECORD: During the maximally alert state, an 8.5-9 Hz posterior dominant rhythm was seen better expressed on the left than right. More anteriorly, low voltage frontocentral beta predominated. There isfocal ~2 Hz delta activity in the right frontotemporal region (Fp2, F4, FT10, T8), along with attenuation of higher frequencies in these regions. The background activity is reactive to external stimulation. Drowsiness was characterized by alpha attenuation and increased frontocentral theta; no features of stage II sleep. EVENTS: No events SIGNIFICANT ELECTROCARDIOGRAM EVENTS: None HYPERVENTILATION: Not performedPHOTIC STIMULATION: Photic stimulation was done [...] of interest. Radha Dukes MD, PhDEpilepsy Fellow Robyn Quezada MD Attending Neurophysiologist POCT-GLUCOSE [id number] 10:07:00 Test Item Value Reference Range Interpretation Comments POC-GLUCOSE METER 105 mg/dL 70-110 TESTED AT [place] [address] ([facility]) (test code = [place] [place] 1538) [id number] PROTHROMBIN [id number] 05:04:00 Test Item Value Reference Range Interpretation Comments PROTIME ([facility]) (test code = 14.1 seconds 11.7-14.7 759) INR ([facility]) (test code = 370) 1.1 <=5.9 RECOMMENDED COUMADIN/WARFARIN INR THERAPY RANGESSTANDARD DOSE: 2.0 - 3.0 Includes: PROPHYLAXIS for venous thrombosis, systemic embolization; TREATMENT for venous thrombosis and/or pulmonary embolus.HIGH RISK: Target INR is 2.5-3.5 for patients with mechanical heart valves.POCT-GLUCOSE [id number] 11:36:00 Test Item Value Reference Range Interpretation Comments POC-GLUCOSE METER 114 mg/dL 70-110 H TESTED AT [place] [address] ([facility]) (test code = [facility] [place] 1538) [id number] POCT-GLUCOSE [id number] 08:57:00 Test Item Value Reference Range Interpretation Comments POC-GLUCOSE METER 138 mg/dL 70-110 H TESTED AT [place] [address] ([facility]) (test code = [place] 1538) [id number] 05:46:00 Test Item Value Reference Range Interpretation Comments POTASSIUM ([facility]) (test code = 4.2 meq/L 3.5-5.1 379) Check Serum Potassium level 2 hours after oral potassium replacement completed or 30 min after intravenous potassium replacement.[id number] 05:46:00 Test Item Value Reference Range Interpretation Comments MAGNESIUM ([facility]) (test code = 2.2 mg/dL 1.6-2.6 627) Check Serum Potassium level 2 hours after oral potassium replacement completed or 30 min after intravenous potassium replacement.[id number] 05:46:00 Test Item Value Reference Range Interpretation Comments PHOSPHORUS (BEAKER) (test code = 2.6 mg/dL 2.3-4.7 604) Check Serum Potassium level 2 hours after oral potassium replacement completed or 30 min after intravenous potassium replacement.BASIC METABOLIC PANEL 2018-02-22 05:46:00 Test Item Value Reference Range Interpretation Comments SODIUM (BEAKER) 136 meq/L 136-145 (test code = 381) POTASSIUM (BEAKER) 4.2 meq/L 3.5-5.1 (test code = 379) CHLORIDE (BEAKER) 106 meq/L 98-107 (test code = 382) CO2 (BEAKER) (test 25 meq/L 22-29 code = 355) BLOOD UREA NITROGEN 11 mg/dL 7-21 (BEAKER) (test code = 354) CREATININE (BEAKER) 0.71 mg/dL 0.57-1.25 (test code = 358) GLUCOSE RANDOM 105 mg/dL 70-105 (BEAKER) (test code = 652) CALCIUM (BEAKER) 8.2 mg/dL 8.4-10.2 L (test code = 697) EGFR (BEAKER) (test 79 mL/min/1.73 ESTIMA DEVONTE GFR IS code = 1092) sq m NOT ACCURATE CREATININE CLEARANCE IN PREDICTING GLOMERULAR FILTRATION RATE . ESTIMATED GFR I S NOT APPLICABLE FOR DIALYSIS PATIEN TS. Check Serum Potassium level 2 hours after oral potassium replacement completed or 30 min after intravenous potassium replacement.CBC W/PLT COUNT & AUTO [id number] 04:57:00 Test Item Value Reference Range Interpretation Comments WHITE BLOOD CELL COUNT (BEAKER) 8.1 K/ L 3.5-10.5 (test code = 775) RED BLOOD CELL COUNT (BEAKER) 3.91 M/ L 3.93-5.22 L (test code = 761) HEMOGLOBIN (BEAKER) (test code = 11.8 GM/DL 11.2-15.7 410) HEMATOCRIT (BEAKER) (test code = 36.6 % 34.1-44.9 411) MEAN CORPUSCULAR VOLUME (BEAKER) 93.6 fL 79.4-94.8 (test code = 753) MEAN CORPUSCULAR HEMOGLOBIN 30.2 pg 25.6-32.2 (BEAKER) (test code = 751) MEAN CORPUSCULAR HEMOGLOBIN CONC 32.2 GM/DL 32.2-35.5 (BEAKER) (test code = 752) RED CELL DISTRIBUTION WIDTH 12.3 % 11.7-14.4 (BEAKER) (test code = 412) PLATELET COUNT (BEAKER) (test 398 K/CU MM 150-450 code = 756) MEAN PLATELET VOLUME (BEAKER) 9.3 fL 9.4-12.3 L (test code = 754) NUCLEATED RED BLOOD CELLS 0 /100 WBC 0-0 (BEAKER) (test code = 413) NEUTROPHILS RELATIVE PERCENT 63 % (BEAKER) (test code = 429) LYMPHOCYTES RELATIVE PERCENT 24 % (BEAKER) (test code = 430) MONOCYTES RELATIVE PERCENT 10 % (BEAKER) (test code = 431) EOSINOPHILS RELATIVE PERCENT 3 % (BEAKER) (test code = 432) BASOPHILS RELATIVE PERCENT 1 % (BEAKER) (test code = 437) NEUTROPHILS ABSOLUTE COUNT 5.08 K/ L 1.56-6.13 (BEAKER) (test code = 670) LYMPHOCYTES ABSOLUTE COUNT 1.90 K/ L 1.18-3.74 (BEAKER) (test code = 414) MONOCYTES ABSOLUTE COUNT (BEAKER) 0.81 K/ L 0.24-0.36 H (test code = 415) EOSINOPHILS ABSOLUTE COUNT 0.24 K/ L 0.04-0.36 (BEAKER) (test code = 416) BASOPHILS ABSOLUTE COUNT (BEAKER) 0.04 K/ L 0.01-0.08 (test code = 417) IMMATURE GRANULOCYTES-RELATIVE 0 % 0-1 PERCENT (BEAKER) (test code = 2801) POCT-GLUCOSE [id number] 21:37:00 Test Item Value Reference Range Interpretation Comments POC-GLUCOSE METER 135 mg/dL 70-110 H TESTED AT [place] [address] [facility]) (test code = [place] 1538) [id number] POCT-GLUCOSE [id number] 17:34:00 Test Item Value Reference Range Interpretation Comments POC-GLUCOSE METER 111 mg/dL 70-110 H TESTED AT [place] [address] [facility]) (test code = [place] 1538) [id number] POCT-GLUCOSE [id number] 12:40:00 Test Item Value Reference Range Interpretation Comments POC-GLUCOSE METER 110 mg/dL 70-110 TESTED AT [facility] 6720 (BEAKER) (test code = [place] 1538) [id number] 05:07:00 Test Item Value Reference Range Interpretation Comments PHOSPHORUS (BEAKER) (test code = 2.7 mg/dL 2.3-4.7 604) [id number] 05:07:00 Test Item Value Reference Range Interpretation Comments MAGNESIUM (BEAKER) (test code = 2.3 mg/dL 1.6-2.6 627) BASIC METABOLIC [id number] 05:07:00 Test Item Value Reference Range Interpretation Comments SODIUM (BEAKER) 138 meq/L 136-145 (test code = 381) POTASSIUM (BEAKER) 3.5 meq/L 3.5-5.1 (test code = 379) CHLORIDE (BEAKER) 107 meq/L 98-107 (test code = 382) CO2 (BEAKER) (test 24 meq/L 22-29 code = 355) BLOOD UREA NITROGEN 12 mg/dL 7-21 (BEAKER) (test code = 354) CREATININE (BEAKER) 0.72 mg/dL 0.57-1.25 (test code = 358) GLUCOSE RANDOM 111 mg/dL 70-105 H (BEAKER) (test code = 652) CALCIUM (BEAKER) 8.4 mg/dL 8.4-10.2 (test code = 697) EGFR (BEAKER) (test 78 mL/min/1.73 ESTIMA DEVONTE GFR IS code = 1092) sq m NOT ACCURATE CREATININE CLEARANCE IN PREDICTING GLOMERULAR FILTRATION RATE . ESTIMATED GFR I S NOT APPLICABLE FOR DIALYSIS PATIEN TS. CBC W/PLT COUNT & AUTO [id number] 04:35:00 Test Item Value Reference Range Interpretation Comments WHITE BLOOD CELL COUNT (BEAKER) 8.9 K/ L 3.5-10.5 (test code = 775) RED BLOOD CELL COUNT (BEAKER) 3.82 M/ L 3.93-5.22 L (test code = 761) HEMOGLOBIN (BEAKER) (test code = 11.6 GM/DL 11.2-15.7 410) HEMATOCRIT (BEAKER) (test code = 35.4 % 34.1-44.9 411) MEAN CORPUSCULAR VOLUME (BEAKER) 92.7 fL 79.4-94.8 (test code = 753) MEAN CORPUSCULAR HEMOGLOBIN 30.4 pg 25.6-32.2 (BEAKER) (test code = 751) MEAN CORPUSCULAR HEMOGLOBIN CONC 32.8 GM/DL 32.2-35.5 (BEAKER) (test code = 752) RED CELL DISTRIBUTION WIDTH 12.2 % 11.7-14.4 (BEAKER) (test code = 412) PLATELET COUNT (BEAKER) (test 415 K/CU MM 150-450 code = 756) MEAN PLATELET VOLUME (BEAKER) 9.7 fL 9.4-12.3 (test code = 754) NUCLEATED RED BLOOD CELLS 0 /100 WBC 0-0 (BEAKER) (test code = 413) NEUTROPHILS RELATIVE PERCENT 68 % (BEAKER) (test code = 429) LYMPHOCYTES RELATIVE PERCENT 19 % (BEAKER) (test code = 430) MONOCYTES RELATIVE PERCENT 10 % (BEAKER) (test code = 431) EOSINOPHILS RELATIVE PERCENT 2 % (BEAKER) (test code = 432) BASOPHILS RELATIVE PERCENT 0 % (BEAKER) (test code = 437) NEUTROPHILS ABSOLUTE COUNT 6.08 K/ L 1.56-6.13 (BEAKER) (test code = 670) LYMPHOCYTES ABSOLUTE COUNT 1.70 K/ L 1.18-3.74 (BEAKER) (test code = 414) MONOCYTES ABSOLUTE COUNT (BEAKER) 0.86 K/ L 0.24-0.36 H (test code = 415) EOSINOPHILS ABSOLUTE COUNT 0.20 K/ L 0.04-0.36 (BEAKER) (test code = 416) BASOPHILS ABSOLUTE COUNT (BEAKER) 0.03 K/ L 0.01-0.08 (test code = 417) IMMATURE GRANULOCYTES-RELATIVE 0 % 0-1 PERCENT (BEAKER) (test code = 2801) POCT-GLUCOSE [id number] 23:38:00 Test Item Value Reference Range Interpretation Comments POC-GLUCOSE METER 122 mg/dL 70-110 H TESTED AT [place] [address] [facility] ([facility] 1538) [id number] POCT-GLUCOSE [id number] 17:56:00 Test Item Value Reference Range Interpretation Comments POC-GLUCOSE METER 144 mg/dL 70-110 H TESTED AT [facility] [address] [facility] (test code = [place] [place] [facility] 1538) [id number] 16:13:00 Test Item Value Reference Range Interpretation Comments POTASSIUM ([facility]) (test code = 3.9 meq/L 3.5-5.1 379) [id number] 16:13:00 Test Item Value Reference Range Interpretation Comments MAGNESIUM ([facility]) (test code = 2.3 mg/dL 1.6-2.6 627) POCT-GLUCOSE [id number] 12:30:00 Test Item Value Reference Range Interpretation Comments POC-GLUCOSE METER 109 mg/dL 70-110 TESTED AT [place] [address] ([facility]) (test code = [place] 1538) [id number] CT BRAIN WITHOUT IV CONTRAST - [id number] 07:31:00Reason for exam:- >interval exam, subdural hemorrhageFINAL REPORT CT head without [...] use of iterated reconstruction technique. COMPARISON: None availa ble FINDINGS: There is a right lateral hemispheric [...] is intact. IMPRESSION: Small volume right lateral hemispheric subdural hematoma without remarkable mass effect. Chronic appearing microvascular and involutional changes. Sinusitis. Signed: Miah Fortuneort Verified Date/Time: 02/20/2018 07:31:36 Reading Location: [facility] C013V Neuro Reading Room 07:31 AMPOCT-GLUCOSE [id number] 06:30:00 Test Item Value Reference Range Interpretation Comments POC-GLUCOSE METER 103 mg/dL 70-110 TESTED AT [facility] 6720 (BEAKER) (test code = [place] 1538) [id number] 04:41:00 Test Item Value Reference Range Interpretation Comments PHOSPHORUS (BEAKER) (test code = 3.1 mg/dL 2.3-4.7 604) Once on admission and Daily AM afterwardsOnce on admission and Daily AM afterwardsOnce on admission and Daily AM [id number] 04:41:00 Test Item Value Reference Range Interpretation Comments MAGNESIUM (BEAKER) (test code = 2.1 mg/dL 1.6-2.6 627) Once on admission and Daily AM afterwardsOnce on admission and Daily AM afterwardsOnce on admission and Daily AM afterwardsBASIC METABOLIC PANEL 2018-02-20 04:41:00 Test Item Value Reference Range Interpretation Comments SODIUM (BEAKER) 136 meq/L 136-145 (test code = 381) POTASSIUM (BEAKER) 3.1 meq/L 3.5-5.1 L (test code = 379) CHLORIDE (BEAKER) 105 meq/L 98-107 (test code = 382) CO2 (BEAKER) (test 22 meq/L 22-29 code = 355) BLOOD UREA NITROGEN 13 mg/dL 7-21 (BEAKER) (test code = 354) CREATININE (BEAKER) 0.71 mg/dL 0.57-1.25 (test code = 358) GLUCOSE RANDOM 92 mg/dL 70-105 (BEAKER) (test code = 652) CALCIUM (BEAKER) 8.4 mg/dL 8.4-10.2 (test code = 697) EGFR (BEAKER) (test 79 mL/min/1.73 ESTIMA DEVONTE GFR IS code = 1092) sq m NOT ACCURATE CREATININE CLEARANCE IN PREDICTING GLOMERULAR FILTRATION RATE . ESTIMATED GFR I S NOT APPLICABLE FOR DIALYSIS PATIEN TS. Once on admission and Daily AM afterwardsOnce on admission and Daily AM afterwardsOnce on admission and Daily AM afterwardsCBC (HEMOGRAM ONLY)2018-02-20 04:19:00 Test Item Value Reference Range Interpretation Comments WHITE BLOOD CELL COUNT (BEAKER) 8.5 K/ L 3.5-10.5 (test code = 775) RED BLOOD CELL COUNT (BEAKER) 3.65 M/ L 3.93-5.22 L (test code = 761) HEMOGLOBIN (BEAKER) (test code = 11.1 GM/DL 11.2-15.7 L 410) HEMATOCRIT (BEAKER) (test code = 34.0 % 34.1-44.9 L 411) MEAN CORPUSCULAR VOLUME (BEAKER) 93.2 fL 79.4-94.8 (test code = 753) MEAN CORPUSCULAR HEMOGLOBIN 30.4 pg 25.6-32.2 (BEAKER) (test code = 751) MEAN CORPUSCULAR HEMOGLOBIN CONC 32.6 GM/DL 32.2-35.5 (BEAKER) (test code = 752) RED CELL DISTRIBUTION WIDTH 11.9 % 11.7-14.4 (BEAKER) (test code = 412) PLATELET COUNT (BEAKER) (test 380 K/CU MM 150-450 code = 756) MEAN PLATELET VOLUME (BEAKER) 9.2 fL 9.4-12.3 L (test code = 754) NUCLEATED RED BLOOD CELLS 0 /100 WBC 0-0 (BEAKER) (test code = 413) HEPATIC FUNCTION [id number] 00:33:00 Test Item Value Reference Range Interpretation Comments TOTAL PROTEIN (BEAKER) (test code = 6.4 gm/dL 6.0-8.3 770) ALBUMIN (BEAKER) (test code = 1145) 3.7 g/dL 3.5-5.0 BILIRUBIN TOTAL (BEAKER) (test code 0.7 mg/dL 0.2-1.2 = 377) BILIRUBIN DIRECT (BEAKER) (test 0.3 mg/dL 0.1-0.5 code = 706) ALKALINE PHOSPHATASE (BEAKER) (test 91 U/L 40-150 code = 346) AST (SGOT) (BEAKER) (test code = 27 U/L 5-34 353) ALT (SGPT) (BEAKER) (test code = 13 U/L 6-55 347) POCT-GLUCOSE [id number] 00:28:00 Test Item Value Reference Range Interpretation Comments POC-GLUCOSE METER 104 mg/dL 70-110 TESTED AT [facility] [address] (BEAKER) (test code = [place] 1538) [id number] 00:05:00 Test Item Value Reference Range Interpretation Comments PARTIAL THROMBOPLASTIN TIME 32.0 seconds 22.5-36.0 (BEAKER) (test code = 760) PROTHROMBIN [id number] 00:04:00 Test Item Value Reference Range Interpretation Comments PROTIME (BEAKER) (test code = 14.4 seconds 11.7-14.7 759) INR (BEAKER) (test code = 370) 1.1 <=5.9 RECOMMENDED COUMADIN/WARFARIN INR THERAPY RANGESSTANDARD DOSE: 2.0 - 3.0 Includes: PROPHYLAXIS for venous thrombosis, systemic embolization; TREATMENT for venous thrombosis and/or pulmonary embolus.HIGH RISK: Target INR is 2.5-3.5 for patients with mechanical heart valves."
--- NOTE | 2022-10-29 11:48 | RAD REPORT ---
EXAM DESCRIPTION: Khurram Single View10/29/2022 11:37 am CLINICAL HISTORY: Preop. Buttock surgery COMPARISON: none FINDINGS: The lungs appear clear of acute infiltrate. The heart is normal size Tortuous aorta Old left clavicular fracture IMPRESSION: No acute abnormalities displayed
[2022-10-29 11:52] LABS: Absolute Lymphocytes (CBC) 1.2 K/uL (0.7-4.9); Hematocrit 32.6 % (36.0-45.0); Lymphocytes % 7.4 % (15.3-44.8); MCV 80.9 fL (80-100); RBC Red Blood Cell Count 4.03 M/uL (3.86-4.86)
[2022-10-29 12:06] LABS: Potassium 3.5 mEq/L (3.5-5.1)
[2022-10-29] MEDS ORDERED: VANCOMYCIN 1 GM/VIAL ONE (14:12)
[2022-10-29] MEDS ORDERED: NA CHLORIDE 0.9% 250 ML ONE (14:13)
[2022-10-29] MEDS ORDERED: NA CHLORIDE 0.9% 100 ML ONE (14:14)
[2022-10-29] MEDS ORDERED: PIPERACIL/TAZO 3.375 GM VIAL IV ONE (14:14)
--- NOTE | 2022-10-29 14:19 | P.HP ---
Certification for Inpatient Patient admitted to: Inpatient With expected LOS: >2 Midnights Patient will require the following post-hospital care: None Practitioner: I am a practitioner with admitting privileges, knowledge of patient current condition, hospital course, and medical plan of care. Services: Services provided to patient in accordance with Admission requirements found in Title 42 Section 412.3 of the Code of Federal Regulations Patient History Date of Service: 10/29/22 Reason for admission: Sacral decubitis History of Present Illness: This is an 87-year-old female with past medical history significant for Parkinson and stage IV sacral decubitus ulcer. Patient presents to the emergency room with her daughter from Dr. Cutler's office. Patient presents with a sacral decubitus wound to her left buttock for duration of 4 to 6 weeks. Per patient's daughter, the wound has not been improving. Patient will be admitted for wound management Dr. Cutler will debride the wound tomorrow. Patient will be n.p.o. after midnight. Allergies No Known Allergies Allergy (Verified 04/06/18 17:02) Home Medications: Acetaminophen [Tylenol] 325 mg PO DAILY 04/06/18 Folic Acid/Multivit,Iron,[place] [One Daily Complete Tablet] 1 tab PO DAILY 04/06/18 Metoprolol Tartrate 25 mg PO DAILY 04/06/18 Propylene Glycol/Peg 400/Pf [Systane 0.3-0.4% Eye Drop] 1 gtt EACH EYE DAILY 04/06/18 - Past Medical/Surgical History Diabetic: No -: Parkinsons -: Sacral decubitis - Social History Smoking Status: Unknown if ever smoked Alcohol use: No Place of Residence: Home Review of Systems 10-point ROS is otherwise unremarkable General: Weakness Integumentary: As per HPI Physical Examination - Vital Signs Temperature: 97.8 F Blood Pressure: 124/76 Pulse: 68 Respirations: 18 Pulse Ox (%): 100 - Physical Exam General: Alert, In no apparent distress HEENT: Atraumatic, Normocephalic Neck: Supple, 2+ carotid pulse no bruit Respiratory: Clear to auscultation bilaterally, Normal air movement Cardiovascular: No edema, Normal pulses Capillary refill: <2 Seconds Gastrointestinal: Normal bowel sounds Musculoskeletal: No clubbing, No swelling Integumentary: Other (sacral decubitis) Lymphatics: No axilla or inguinal lymphadenopathy - Studies Laboratory Data (last 24 hrs) 10/29/22 11:45: Sodium 142, Potassium 3.5, BUN 41 H, Creatinine 0.85, Glucose 131 H 10/29/22 11:45: WBC 16.10 H, Hgb 10.4 L, Hct 32.6 L, Plt Count 571 H Assessment and Plan - Plan Assessment Parkinson disease Pressure ulcer of left buttock, stage 4 Plan Continue IV antibiotics Blood cultures wound cultures pending Patient n.p.o. after midnight Surgical debridement tomorrow Offload while in bed DVT PPx-SCDs Full code Discharge Plan: Home - Advance Directives Does patient have a Living Will: No Does patient have a Durable POA for Healthcare: Yes - Code Status/Comfort Care Code Status Assessed: Yes (Full code) Critical Care: No Time Spent Managing Pts Care (In Minutes): 50
--- NOTE | 2022-10-29 14:20 | ER ---
Nurse's Notes [facility] Name: Megha Arredondo Age: 82 yrs Sex: Female : 1940 Arrival Date: 10/29/2022 Time: 10:59 Bed 16 Private MD: Diagnosis: Open wound, nonhealing to coccyx area Presentation: 10/29 11:08 Chief complaint: Patient's son or daughter states: the patient has had a wound on her ap3 buttocks for approx 4-6 weeks of which she has been followed by wound care. patient was sent by wound care for further treatment. Coronavirus screen: At this time, the client does not indicate any symptoms associated with coronavirus-19. Ebola Screen: No symptoms or risks identified at this time. Initial Sepsis Screen: Does the patient meet any 2 criteria? No. Patient's initial sepsis screen is negative. Does the patient have a suspected source of infection? Yes: Skin breakdown/wound. Risk Assessment: Do you want to hurt yourself or someone else? Patient reports no desire to harm self or others. Onset of symptoms is unknown. 11:08 Method Of Arrival: Wheelchair ap3 11:08 Acuity: RUBENS 3 ap3 Triage Assessment: 11:08 General: Appears in no apparent distress. Behavior is calm. Pain: Unable to use pain ap3 scale. Neuro: Level of Consciousness is awake, Oriented to person. Cardiovascular: Patient's skin is warm and dry. Respiratory: Airway is patent Respiratory effort is even, unlabored, Respiratory pattern is regular, symmetrical. Derm: Parent/caregiver reports the patient having wound on buttocks. Historical: - Allergies: 11:10 Aspirin; ap3 - PMHx: 11:10 Parkinsons; ap3 - Immunization history:: Client reports having NOT received the Covid vaccine. Flu vaccine is not up to date. - Social history:: Smoking status: Patient denies any tobacco usage or history of. Screenin:10 Abuse screen: Denies threats or abuse. Nutritional screening: No deficits noted. ap3 Tuberculosis screening: No symptoms or risk factors identified. Assessment: 11:30 Reassessment: See triage assessment. nj1 12:30 Reassessment: Patient appears in no apparent distress at this time. No changes from nj1 previously documented assessment. Patient and/or family updated on plan of care and expected duration. Pain level reassessed. Vital Signs: 11:08 BP 129 / 74; Pulse 80; Resp 17; Temp 97.8; Pulse Ox 100% ; ap3 11:48 BP 151 / 88; Pulse 79; Resp 16; Pulse Ox 100% on R/A; nj1 12:57 BP 124 / 76; Pulse 68; Resp 18; Pulse Ox 98% on R/A; nj1 17:08 BP 144 / 80; Pulse 77; Resp 18; Pulse Ox 100% on R/A; kr3 ED Course: 11:02 Patient arrived in ED. mr 11:05 Meka Minaya FNP-C is [facility]. kb 11:05 Jonny Small MD is Attending Physician. kb 11:09 Triage completed. ap3 11:10 Arm band placed on left wrist. ap3 11:25 Neida Acevedo, RN is Primary Nurse. nj1 11:39 Chest Single View XRAY In Process Unspecified. EDMS 11:45 Inserted saline lock: 20 gauge in left upper arm, using aseptic technique. Blood nj1 collected. 13:00 Report received from Neida VARGAS. vg1 14:19 Curtis Dempsey MD is Hospitalizing Provider. kb Administered Medications: 14:25 Drug: Piperacillin-Tazobactam IVPB 3.375 grams Route: IVPB; Infused Over: 60 mins; vg1 Site: left upper arm; 15:40 Drug: vancoMYCIN IVPB 1 grams Route: IVPB; Infused Over: 2 hrs; Site: left upper arm; kr3 Outcome: 14:19 Discharge ordered by MD. kb 14:19 Decision to Hospitalize by Provider. kb 17:42 Patient left the ED. iw Signatures: Dispatcher [employer] EDMS eMka Minaya FNP-C FNP-Cesar Samina Echeverria Alyson Leach, RN SAM iw Lesa Mix, RN RN bruce3 Cecile Addison, RN RN vg1 Izabela Bashir, SAM VARGAS kr3 Neida Acevedo, RN RN nj1
--- NOTE | 2022-10-29 14:20 | EDPHYS ---
Physician Documentation [facility] Name: Megha Arredondo Age: 82 yrs Sex: Female : 1940 Arrival Date: 10/29/2022 Time: 10:59 Bed 16 Private MD: ED Physician Jonny Small HPI: 10/29 13:33 This 82 yrs old Female presents to ER via Wheelchair with complaints of Wound Infection.kb 13:33 Daughter states pt has had an open wound to buttock for 4-6 weeks. Has been going to wound care for this and was sent to the ER today by Dr Cutler for admission so he could debride the wound. Onset: The symptoms/episode began/occurred 4 week(s) ago. Severity of symptoms: At their worst the symptoms were moderate in the emergency department the symptoms are unchanged. The patient has not experienced similar symptoms in the past. The patient has been recently seen by a physician:. Historical: - Allergies: 11:10 Aspirin; ap3 - PMHx: 11:10 Parkinsons; ap3 - Immunization history:: Client reports having NOT received the Covid vaccine. Flu vaccine is not up to date. - Social history:: Smoking status: Patient denies any tobacco usage or history of. ROS: 13:32 Constitutional: Negative for fever, chills, and weight loss. kb 13:32 Skin: Positive for wound to buttock for 4-6 weeks. 13:32 All other systems are negative. Exam: 12:08 ECG was reviewed by the Attending Physician. kb 13:32 Constitutional: This is a well developed, well nourished patient who is awake, alert, kb and in no acute distress. Head/Face: Normocephalic, atraumatic. ENT: Moist Mucous membranes Cardiovascular: Regular rate and rhythm with a normal S1 and S2. No gallops, murmurs, or rubs. No pulse deficits. Respiratory: Respirations even and unlabored. No increased work of breathing. Talking in full sentences Abdomen/GI: Soft, non-tender. No distention MS/ Extremity: Pulses equal, no cyanosis. Neurovascular intact. Full, normal range of motion. Neuro: Awake and alert, GCS 15, oriented to person, place, time, and situation. Moves all extremities. Normal gait. Vital Signs: 11:08 BP 129 / 74; Pulse 80; Resp 17; Temp 97.8; Pulse Ox 100% ; ap3 11:48 BP 151 / 88; Pulse 79; Resp 16; Pulse Ox 100% on R/A; nj1 12:57 BP 124 / 76; Pulse 68; Resp 18; Pulse Ox 98% on R/A; nj1 17:08 BP 144 / 80; Pulse 77; Resp 18; Pulse Ox 100% on R/A; kr3 MDM: 11:05 Patient medically screened. kb 13:32 Differential diagnosis: nonhealing wound, MRSA. Data reviewed: vital signs, nurses kb notes. Consideration of Admission/Observation Patient was admitted/placed on observation. Management of patient was discussed with the following: Dr Small discussed case with Dr Cutler. Counseling: I had a detailed discussion with the patient and/or guardian regarding: the historical points, exam findings, and any diagnostic results supporting the discharge/admit diagnosis, lab results, radiology results, the need for further work-up and treatment in the hospital. 14:18 Management of patient was discussed with the following: Hospitalist: Discussed with osmany Bnaks NP who accepts pt for admission under Dr Dempsey. 10/29 11:10 Order name: CBC with Diff; Complete Time: 15:36 kb 10/29 11:10 Order name: Basic Metabolic Panel; Complete Time: 12:11 kb 10/29 11:55 Order name: CBC Smear Scan; Complete Time: 15:36 EDMS 10/29 12:11 Order name: Blood Culture Adult (2) 10/29 12:11 Order name: Lactate w/ 2H reflex if indic.; Complete Time: 15:51 kb 10/29 16:17 Order name: Urinalysis w/ reflexes EDMS 10/29 16:17 Order name: Basic Metabolic Panel EDMS 10/29 16:17 Order name: Basic Metabolic Panel EDMS 10/29 16:17 Order name: Basic Metabolic Panel EDMS 10/29 16:17 Order name: Basic Metabolic Panel EDMS 10/29 16:17 Order name: Vancomycin Level Trough EDMS 10/29 16:17 Order name: Vancomycin Peak EDMS 10/29 11:10 Order name: Chest Single View XRAY; Complete Time: 11:54 kb 10/29 11:10 Order name: EKG; Complete Time: 11:11 kb 10/29 16:17 Order name: [facility] EDCO 10/29 16:17 Order name: NPO EDMS 10/29 16:17 Order name: Regular EDMS 10/29 11:10 Order name: IV Start; Complete Time: 11:48 kb 10/29 11:10 Order name: EKG - Nurse/Tech; Complete Time: 14:04 kb EC:08 Rate is 74 beats/min. Rhythm is regular. QRS [place] is Normal. RI interval is normal at kb 146 msec. QRS interval is normal at 68 msec. QT interval is normal at 421 msec. Administered Medications: 14:25 Drug: Piperacillin-Tazobactam IVPB 3.375 grams Route: IVPB; Infused Over: 60 mins; vg1 Site: left upper arm; 15:40 Drug: vancoMYCIN IVPB 1 grams Route: IVPB; Infused Over: 2 hrs; Site: left upper arm; kr3 Disposition Summary: 10/29/22 14:19 Hospitalization Ordered Hospitalization Status: Inpatient Admission kb Provider: Curtis Dempsey Location: Telemetry/MedSurg (Inpatient)(10/29/22 14:19) kb Condition: Stable(10/29/22 14:19) kb Problem: an ongoing problem kb Symptoms: are unchanged kb Bed/Room Type: Standard Room Assignment: 409(10/29/22 16:20) iw Diagnosis - Open wound, nonhealing to coccyx area kb Forms: - Medication Reconciliation Form kb - SBAR form kb Signatures: Dispatcher [employer] [facility] Meka Minaya, INDIRA [employer]EE [employer]WER-Alyson Sweet RN RN Lesa Ruff RN RN bruce3 Cecile Addison RN RN vg1 Izabela Bashir RN RN kr3 Corrections: (The following items were deleted from the chart) 14:19 14:19 Home kb kb 14:19 14:19 Stable kb kb 14:19 14:19 Open wound of coccyx area kb kb 16:20 14:19 kb iw
[2022-10-29 15:34] LABS: Blood Morphology Comment NOT SEEN (NOT SEEN); Platelet Estimate INCR; White Blood Cell Scan OK (OK)
[2022-10-29] MEDS: NA CHLORIDE 0.9% 1,000 ML IV SCH (17:00)
[2022-10-29] MEDS: PIPER TAZO 3.375 GM in NA CHLORIDE 0.9% 100 ML IV SCH (20:29)
[2022-10-30 04:03] LABS: Absolute Lymphocytes (CBC) 1.9 K/uL (0.7-4.9); Hematocrit 27.6 % (36.0-45.0); Lymphocytes % 16.8 % (15.3-44.8); MCV 80.8 fL (80-100); MPV 7.4 fL (7.6-11.3); RBC Red Blood Cell Count 3.41 M/uL (3.86-4.86)
[2022-10-30 04:17] LABS: Potassium 3.4 mEq/L (3.5-5.1)
[2022-10-30] MEDS: NA CHLORIDE 0.9% 1,000 ML IV SCH ×2 (05:43→21:12)
--- NOTE | 2022-10-30 06:56 | EKG ---
Test Date: 2022-10-29 Test Time: 12:02:24 Finishing Pan Operator: BRIAN MEASUREMENT RESULTS: Intervals: Rate: 74 MN: 146 QRSD: 68 QT: 380 QTc: 421 Achille: P: 59 MN: 146 QRS: 26 T: 39 INTERPRETIVE STATEMENTS: Normal sinus rhythm Normal ECG Compared to ECG 02/19/2018 16:16:09 T-wave abnormality no longer present Electronically Signed On 10-30-22 06:55:11 CDT by Harjinder Adames
[2022-10-30] MEDS ORDERED: PNEUMOCOCCAL VACCINE 0.5 ML IMVAC ONE (08:00)
[2022-10-30] MEDS ORDERED: Ringers Lactate 1,000 ML IV ONE (08:07)
[2022-10-30] MEDS: PIPER TAZO 3.375 GM in NA CHLORIDE 0.9% 100 ML IV SCH (08:17)
--- NOTE | 2022-10-30 09:42 | P.CNS ---
Date of Consult: 10/30/22 Reason for consult: Infected sacral decubitus History of present illness: Patient is a 82-year-old female who was seen by me yesterday in the wound healing center with a sacral decubitus. Patient decubitus had been getting worse. Patient was advised for admission a couple weeks ago but she refused. Patient has a foul odor to the wound with necrotic tissue. Patient denies any fever or chills. There is however minimal purulent discharge. Patient denies sore throat, runny nose, cough, headaches, dizziness or chest pain. Patient went to the emergency room yesterday and was admitted to the hospitalist. I was consulted for surgical debridement. Review of systems: Otherwise unremarkable Past medical history: Parkinson's Past surgical history: Right hip surgery Allergies: None Social history: Patient currently does not smoke or drink alcohol Family history: Non-contributory Vital signs: Stable, afebrile Physical exam: Awake and alert Head and neck exam: No masses Chest: Clear Heart: S1-S2 Abdomen: Soft Extremity: Neurovascular intact, nontender Neuro: Nonfocal Sacrum: There is a necrotic wound approximately 8 x 10 x 2 cm with necrotic fibrin purulent discharge some granulation tissue and undermining from 12-12 approximately 5 cm. The wound has minimal surrounding erythema but no warmth. Diagnostic data: Leukocytosis Assessment: Infected sacral decubitus Plan/recommendation: Admit, NPO, IV fluids, IV antibiotics to the OR for surgical debridement of infected sacral decubitus. Patient and daughter understand risks, benefits and alternatives and agreed to procedure. CC:
[2022-10-30] MEDS ORDERED: FENTANYL CITR 100 MCG/2 ML ONE (10:00)
[2022-10-30] MEDS ORDERED: propofoL 200 MG/20 ML VIAL IV ONE (10:00)
[2022-10-30] MEDS ORDERED: LIDOCAINE 2% MPF 5 ML VIAL ONE (10:01)
[2022-10-30] MEDS ORDERED: ONDANSETRON 4 MG/2 ML VIAL ONE (10:05)
[2022-10-30] MEDS ORDERED: dexAMETHasone 4 MG/ML VIAL ONE (10:37)
[2022-10-30] MEDS ORDERED: COLLAGENASE 30 GM OINTMENT TOP ONE (10:52)
--- NOTE | 2022-10-30 11:03 | P.OP ---
Date of Service: 10/30/22 Preop diagnosis: Infected sacral decubitus Postop diagnosis: Same Procedure performed: Debridement of infected sacral decubitus to subcutaneous tissue and muscle and bone 10 x 8 x 2 cm with pulse irrigation Surgeon: Jaydon Cutler MD Chef French: None Estimated blood loss: Minimal Specimen: Necrotic, infected tissue Findings: As above Anesthesia: General Complications: None Drains: None Fluids and blood products: Nonapplicable Disposition: Recovery room Operative note: Patient brought to the OR placed in the supine position. General anesthesia begun. Patient placed in the right lateral position. Marcaine 0.5% infiltrated after patient was prepped and draped in the usual sterile fashion. Then sharp dissection utilizing cautery and scissors were used to debride all of the necrotic infected tissue that was visible. Entire debridement area was approximately 10 x 8 x 2 cm. The wound itself extended all the way down to the bone. Pulse irrigation utilized to irrigate the wound. Following which, all loose necrotic tissue was debrided sharply. Bleeding controlled with cautery. Then a wound VAC with Santyl dressing was applied. Patient was awakened and taken to recovery room in good general condition. CC:
[2022-10-30] MEDS ORDERED: HYDROMORPHONE HCL 0.5 MG/0.5 ML INJ IV PRN (11:08)
[2022-10-30] MEDS: VANCOMYCIN 1 GM in NA CHLORIDE 0.9% 250 ML IVPB SCH (14:37)
--- NOTE | 2022-10-30 17:00 | P.PN ---
Subjective Date of Service: 10/30/22 Chief Complaint: Sacral decubitis No acute events overnight. She was seen following the surgical debridement. She reports that her pain is well-controlled. She currently has a wound-VAC in place. She denies any additional concerns at this time. Review of Systems 10-point ROS is otherwise unremarkable General: Weakness (generalized) Integumentary: Other (sacral pressure ulcer) Physical Examination - Vital Signs Temperature: 98.3 F Blood Pressure: 151/67 Pulse: 69 Respirations: 18 Pulse Ox (%): 93 - Physical Exam General: Alert, In no apparent distress, Oriented x3 HEENT: Atraumatic, Mucous membr. 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 - General Surgery was consulted and she was evaluated by Dr. Cutler - recommendations appreciated - S/P wound debridement today - Okay to resume VTE dose enoxaparin per Dr. Cutler - Sepsis order set was initiated - Initial Lactate was 1.4 - Blood cultures drawn before antibiotics were given - Broad spectrum antibiotics started: Vancomycin + Piperacillin-Tazobactam -> Vancomycin + Cefepime - In regards to fluids: - 30 mL/kg of IV fluids was not administered given SBP > 90, MAP > 65, lactic acid < 4 - Consult PT/OT - will likely require SNF placement # Parkinson's Disease - Continue home carbidopa-levodopa Curtis Dempsey M.D.
[2022-10-30] MEDS: ENOXAPARIN 40 MG/0.4 ML SQ SCH (17:55)
[2022-10-30] MEDS: CEFEPIME 2 GM in NA CHLORIDE 0.9% 100 ML IV SCH (17:55)
[2022-10-30] MEDS: CARBIDOPA PO SCH (21:00)
[2022-10-30] MEDS: LEVODOPA PO SCH (21:00)
[2022-10-30] MEDS: ENSURE ENLIVE 237 ML CAN PO SCH (21:13)
[2022-10-30] MEDS: JUVEN PACKET PO SCH (21:13)
[2022-10-31] MEDS: CEFEPIME 2 GM in NA CHLORIDE 0.9% 100 ML IV SCH ×2 (04:27→16:23)
[2022-10-31 04:42] LABS: Absolute Lymphocytes (CBC) 1.2 K/uL (0.7-4.9); Hematocrit 28.9 % (36.0-45.0); Lymphocytes % 9.8 % (15.3-44.8); MCV 81.3 fL (80-100); MPV 7.8 fL (7.6-11.3); RBC Red Blood Cell Count 3.55 M/uL (3.86-4.86)
[2022-10-31] MEDS: ENSURE ENLIVE 237 ML CAN PO SCH ×2 (08:13→20:35)
[2022-10-31] MEDS: JUVEN PACKET PO SCH ×2 (08:13→20:35)
[2022-10-31] MEDS: NA CHLORIDE 0.9% 1,000 ML IV SCH ×2 (09:00→15:46)
--- NOTE | 2022-10-31 12:06 | PN ---
Date of Progress Note: 10/31/2022 Subjective: Patient is awake, resting comfortably. Objective: Vital Signs: Stable, afebrile. Wound: Wound VAC is in place, working well. Laboratory Data: Reviewed. Assessment: Status post debridement of sacral decubitus. Recommendation: Nutritional optimization. Air mattress offloading. Antibiotics as ordered. Check cultures and adjust antibiotics accordingly and wound care as ordered. Discharge planning. /MODL Voice ID: [id number] Report ID: [id number]
[2022-10-31] MEDS: VANCOMYCIN 1 GM in NA CHLORIDE 0.9% 250 ML IVPB SCH (14:23)
[2022-10-31] MEDS: ENOXAPARIN 40 MG/0.4 ML SQ SCH (16:53)
[2022-10-31] MEDS ORDERED: DIPHENHYDRAMINE 25 MG TAB/CAP PO ONE (17:25)
--- NOTE | 2022-10-31 17:56 | P.PN ---
Subjective Date of Service: 10/31/22 Chief Complaint: Sacral decubitis POD #1 from sacral wound surgical debridement. She reports that she feels well and that her pain is well-controlled. She currently has a wound-VAC in place. She denies any chest pain, shortness of breath, or abdominal pain. Review of Systems 10-point ROS is otherwise unremarkable Integumentary: Other (sacral wound) Physical Examination - Vital Signs Temperature: 99.5 F Blood Pressure: 153/78 Pulse: 78 Respirations: 16 Pulse Ox (%): 97 Assessment And Plan - Plan - Physical Exam General: Alert, In no apparent distress, Oriented x3 HEENT: Atraumatic, Mucous membr. 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 - General Surgery was consulted and she was evaluated by Dr. Cutler - recommendations appreciated - S/P wound debridement on 10/30 - Sepsis order set was initiated - Initial Lactate was 1.4 - Blood cultures drawn before antibiotics were given - Broad spectrum antibiotics started: Vancomycin + Piperacillin-Tazobactam -> Vancomycin + Cefepime - In regards to fluids: - 30 mL/kg of IV fluids was not administered given SBP > 90, MAP > 65, lactic acid < 4 - Consult PT/OT - will likely require SNF placement # Parkinson's Disease - Continue home carbidopa-levodopa Curtis Dempsey M.D.
[2022-10-31] MEDS: LEVODOPA PO SCH (20:36)
[2022-10-31] MEDS: CARBIDOPA PO SCH (20:36)
[2022-11-01] MEDS: CEFEPIME 2 GM in NA CHLORIDE 0.9% 100 ML IV SCH ×2 (04:18→16:16)
[2022-11-01 04:35] LABS: Absolute Lymphocytes (CBC) 1.3 K/uL (0.7-4.9); Hematocrit 25.5 % (36.0-45.0); Lymphocytes % 17.6 % (15.3-44.8); MCV 80.6 fL (80-100); MPV 7.7 fL (7.6-11.3); RBC Red Blood Cell Count 3.16 M/uL (3.86-4.86)
[2022-11-01] MEDS: NA CHLORIDE 0.9% 1,000 ML IV SCH ×2 (04:49→11:40)
[2022-11-01] MEDS: ENSURE ENLIVE 237 ML CAN PO SCH ×2 (07:58→20:18)
[2022-11-01] MEDS: JUVEN PACKET PO SCH ×2 (07:58→20:19)
[2022-11-01 08:29] LABS: Magnesium 1.8 mg/dL (1.6-2.4); Phosphorus 2.3 mg/dL (2.5-4.9)
[2022-11-01] MEDS: KCL 20 MEQ/100 mL IVPB 20 MEQ/100 ML BAG IV SCH ×2 (09:12→17:17)
[2022-11-01] MEDS: HYDROCODONE/APAP 5/325 MG TAB PO PRN (09:13)
[2022-11-01] MEDS ORDERED: MAGNESIUM SULFATE 1 gm IVPB 1 GM/100 ML BAG IV ONE (10:15)
[2022-11-01] MEDS ORDERED: POTASSIUM PHOS IN 0.9 % NACL 15 MMOL/250 ML BAG IV ONE (10:15)
[2022-11-01] MEDS: VANCOMYCIN 1 GM in NA CHLORIDE 0.9% 250 ML IVPB SCH (14:35)
[2022-11-01] MEDS: ENOXAPARIN 40 MG/0.4 ML SQ SCH (16:18)
--- NOTE | 2022-11-01 16:59 | P.PN ---
Subjective Date of Service: 11/01/22 Chief Complaint: Sacral decubitis POD #2 from sacral wound surgical debridement. This morning, she reports significant pain at the surgical site. Spoke with RN, who is bringing her pain medications. Wound culture with 1+ mixed skin abiel. Appreciate Surgery guidance regarding antibiotic selection. Appreciate case management assistance with placement. She currently has a wound-VAC in place. She denies any chest pain, shortness of breath, or abdominal pain. Review of Systems 10-point ROS is otherwise unremarkable Musculoskeletal: Back Pain (sacral wound) Physical Examination - Vital Signs Temperature: 98.8 F Blood Pressure: 141/70 Pulse: 71 Respirations: 16 Pulse Ox (%): 98 Assessment And Plan - Plan - Physical Exam General: Alert, In mild distress, Oriented x3 HEENT: Atraumatic, Mucous membr. 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 - General Surgery was consulted and she was evaluated by Dr. Cutler - recommendations appreciated - S/P wound debridement on 10/30 - Sepsis order set was initiated - Initial Lactate was 1.4 - Blood cultures drawn before antibiotics were given - Broad spectrum antibiotics started: Vancomycin + Piperacillin-Tazobactam -> Vancomycin + Cefepime - In regards to fluids: - 30 mL/kg of IV fluids was not administered given SBP > 90, MAP > 65, lactic acid < 4 - Consult PT/OT - will likely require SNF placement - PRN pain control # Parkinson's Disease - Continue home carbidopa-levodopa Curtis Dempsey M.D.
[2022-11-01] MEDS: CARBIDOPA PO SCH (20:18)
[2022-11-01] MEDS: LEVODOPA PO SCH (20:18)
[2022-11-02] MEDS: NA CHLORIDE 0.9% 1,000 ML IV SCH ×4 (01:00→23:37)
[2022-11-02] MEDS: CEFEPIME 2 GM in NA CHLORIDE 0.9% 100 ML IV SCH ×2 (04:52→16:57)
[2022-11-02 06:08] LABS: Absolute Lymphocytes (CBC) 1.1 K/uL (0.7-4.9); Hematocrit 27.6 % (36.0-45.0); Lymphocytes % 16.4 % (15.3-44.8); MCV 79.5 fL (80-100); RBC Red Blood Cell Count 3.47 M/uL (3.86-4.86)
[2022-11-02 06:19] LABS: Magnesium 2.1 mg/dL (1.6-2.4); Phosphorus 2.3 mg/dL (2.5-4.9); Potassium 3.3 mEq/L (3.5-5.1)
[2022-11-02] MEDS: ENSURE ENLIVE 237 ML CAN PO SCH ×2 (07:35→20:23)
[2022-11-02] MEDS: JUVEN PACKET PO SCH ×2 (07:35→20:23)
[2022-11-02] MEDS ORDERED: KCL 20 MEQ/100 mL IVPB 20 MEQ/100 ML BAG IV SCH (08:00)
[2022-11-02] MEDS ORDERED: POTASSIUM PHOS IN 0.9 % NACL 15 MMOL/250 ML BAG IV ONE (10:00)
--- NOTE | 2022-11-02 10:31 | P.PN ---
Date of Service: 11/02/22 Subjective: Patient with no complaints. Objective: Vital stable, afebrile Wound: Wound VAC in place with no surrounding erythema warmth or edema Assessment: Status post sacral decubitus debridement with wound VAC Plan: Continue antibiotics and wound care as ordered. Discharge planning in progress. CC:
[2022-11-02] MEDS: VANCOMYCIN 1 GM in NA CHLORIDE 0.9% 250 ML IVPB SCH (14:29)
[2022-11-02] MEDS: ENOXAPARIN 40 MG/0.4 ML SQ SCH (16:57)
--- NOTE | 2022-11-02 19:26 | P.PN ---
Subjective Date of Service: 11/02/22 Chief Complaint: Sacral decubitis POD #3 from sacral wound surgical debridement. This morning, she reports that her pain is well controlled. Appreciate case management assistance with placement. She currently has a wound-VAC in place. She denies any chest pain, shortness of breath, or abdominal pain. Review of Systems 10-point ROS is otherwise unremarkable Musculoskeletal: Back Pain Physical Examination - Vital Signs Temperature: 99.9 F Blood Pressure: 132/68 Pulse: 77 Respirations: 16 Pulse Ox (%): 94 Assessment And Plan - Plan - Physical Exam General: Alert, In mild distress, Oriented x3 HEENT: Atraumatic, Mucous membr. moist/pink, Sclerae nonicteric Neck: JVD not distended Respiratory: Clear to auscultation bilaterally, Normal air movement Cardiovascular: No edema, Regular rate/rhythm, No murmurs Gastrointestinal: Normal bowel sounds, Soft, Non-distended, No tenderness Musculoskeletal: No clubbing, Contractures (consistent with Parkinson disease) Integumentary: Pressure ulcer (Wound-VAC over sacral wound) Neurological: Normal speech, Normal affect # Sepsis likely secondary to Infected Stage IV Left Buttock Pressure Ulcer and possible Osteomyelitis (POA) s/p Debridement She met sepsis criteria based on HR > 90 bpm and WBC > 12,000, and the suspected source is a skin infection. - General Surgery was consulted and she was evaluated by Dr. Cutler - recommendations appreciated - S/P wound debridement on 10/30 - He recommended 2 weeks of Vancomycin + Cefepime, followed by 4 weeks of Vancomycin (6 weeks total of antibiotics) - Today is day 5 of antibiotics - Sepsis order set was initiated - Initial Lactate was 1.4 - Blood cultures drawn before antibiotics were given - Broad spectrum antibiotics started: Vancomycin + Piperacillin-Tazobactam -> Vancomycin + Cefepime - In regards to fluids: - 30 mL/kg of IV fluids was not administered given SBP > 90, MAP > 65, lactic acid < 4 - Consult PT/OT - will likely require SNF placement - PRN pain control # Parkinson's Disease - Continue home carbidopa-levodopa Curtis Dempsey M.D.
[2022-11-02] MEDS: LEVODOPA PO SCH (20:23)
[2022-11-02] MEDS: CARBIDOPA PO SCH (20:23)
[2022-11-03] MEDS: NA CHLORIDE 0.9% 1,000 ML IV SCH ×2 (03:40→13:56)
[2022-11-03] MEDS: CEFEPIME 2 GM in NA CHLORIDE 0.9% 100 ML IV SCH ×2 (06:10→16:14)
[2022-11-03 06:11] LABS: Absolute Lymphocytes (CBC) 1.4 K/uL (0.7-4.9); Hematocrit 25.7 % (36.0-45.0); Lymphocytes % 20.1 % (15.3-44.8); MCV 79.6 fL (80-100); MPV 6.9 fL (7.6-11.3); RBC Red Blood Cell Count 3.24 M/uL (3.86-4.86)
[2022-11-03] MEDS ORDERED: POTASSIUM 25 MEQ EFFERV TAB PO ONE (06:12)
[2022-11-03 06:22] LABS: Phosphorus 2.3 mg/dL (2.5-4.9); Potassium 3.3 mEq/L (3.5-5.1)
[2022-11-03] MEDS ORDERED: POTASSIUM PHOS IN 0.9 % NACL 15 MMOL/250 ML BAG IV ONE (08:00)
[2022-11-03] MEDS: JUVEN PACKET PO SCH ×2 (08:09→21:56)
[2022-11-03] MEDS: ENSURE ENLIVE 237 ML CAN PO SCH ×2 (08:09→21:56)
[2022-11-03] MEDS: Mupirocin NASAL 2 APPL/1 GM TUBE NAS SCH ×2 (10:06→21:00)
[2022-11-03 11:08] LABS: Anisocytosis SLIGHT; Blood Morphology Comment NOT SEEN (NOT SEEN); Platelet Estimate INCR
[2022-11-03 11:09] LABS: Hypochromasia 1+
--- NOTE | 2022-11-03 12:33 | PN ---
Date of Progress Note: 11/03/2022 Subjective: The patient is awake, alert. No complaints. Objective: Vital Signs: Stable, afebrile. Extremities: Wound VAC was changed yesterday. According to the nurse, the wound looked clean. Ther e was no evidence of any pus or redness noted. Wound is healing well. Assessment: Status post sacral decubitus for stage IV ulcer down to the bone. Recommendations: The patient will need 6 weeks IV antibiotics as there was chronic osteo present in the wound itself. Discharge planning is in progress. The patient would benefit from either SNF or [facility] [place] referral. Plan of care discussed with Dr. Dempsey. FRANCIS/AZIDA Voice ID: [id number] Report ID: [id number]
[2022-11-03] MEDS: VANCOMYCIN 1 GM in NA CHLORIDE 0.9% 250 ML IVPB SCH ×2 (14:00→14:54)
[2022-11-03] MEDS: ENOXAPARIN 40 MG/0.4 ML SQ SCH (16:14)
--- NOTE | 2022-11-03 21:26 | P.PN ---
Subjective Date of Service: 11/03/22 Chief Complaint: Sacral decubitis POD #4 from sacral wound surgical debridement. She reports that her pain is well controlled. She denies any concerns this morning. She is pending SNF placement. Appreciate case management assistance with placement. She denies any chest pain, shortness of breath, or abdominal pain. Review of Systems 10-point ROS is otherwise unremarkable Musculoskeletal: Back Pain Physical Examination - Vital Signs Temperature: 97.7 F Blood Pressure: 126/71 Pulse: 74 Respirations: 15 Pulse Ox (%): 96 - Studies Microbiology Data (last 24 hrs): 10/29/22 14:20 Blood - Blood Aerobic Blood Culture - Final No growth in 5 days. 10/29/22 14:20 Blood - Blood Anaerobic Blood Culture - Final No growth in 5 days. 10/29/22 14:10 Blood - Blood Aerobic Blood Culture - Final No growth in 5 days. 10/29/22 14:10 Blood - Blood Anaerobic Blood Culture - Final No growth in 5 days. Assessment And Plan - Plan - Physical Exam General: Alert, In no distress, Oriented x3 HEENT: Atraumatic, Mucous membr. moist/pink, Sclerae nonicteric Neck: JVD not distended Respiratory: Clear to auscultation bilaterally, Normal air movement Cardiovascular: No edema, Regular rate/rhythm, No murmurs Gastrointestinal: Normal bowel sounds, Soft, Non-distended, No tenderness Musculoskeletal: No clubbing, Contractures (consistent with Parkinson disease) Integumentary: Pressure ulcer (Wound-VAC over sacral wound) Neurological: Normal speech, Normal affect # Sepsis likely secondary to Infected Stage IV Left Buttock Pressure Ulcer and possible Osteomyelitis (POA) s/p Debridement She met sepsis criteria based on HR > 90 bpm and WBC > 12,000, and the suspected source is a skin infection. - General Surgery was consulted and she was evaluated by Dr. Cutler - recommendations appreciated - S/P wound debridement on 10/30 - He recommended 2 weeks of Vancomycin + Cefepime, followed by 4 weeks of Vancomycin (6 weeks total of antibiotics) - Today is day 6 of antibiotics - Sepsis order set was initiated - Initial Lactate was 1.4 - Blood cultures drawn before antibiotics were given - Broad spectrum antibiotics started: Vancomycin + Piperacillin-Tazobactam -> Vancomycin + Cefepime - In regards to fluids: - 30 mL/kg of IV fluids was not administered given SBP > 90, MAP > 65, lactic acid < 4 - Consult PT/OT - will likely require SNF placement - PRN pain control # Parkinson's Disease - Continue home carbidopa-levodopa Curtis Dempsey M.D.
[2022-11-03] MEDS: LEVODOPA PO SCH (21:54)
[2022-11-03] MEDS: CARBIDOPA PO SCH (21:54)
[2022-11-04] MEDS: NA CHLORIDE 0.9% 1,000 ML IV SCH ×2 (05:48→19:40)
[2022-11-04] MEDS: CEFEPIME 2 GM in NA CHLORIDE 0.9% 100 ML IV SCH ×2 (05:48→18:12)
[2022-11-04 06:45] LABS: Phosphorus 2.4 mg/dL (2.5-4.9); Potassium 3.4 mEq/L (3.5-5.1)
[2022-11-04] MEDS: VANCOMYCIN 1 GM in NA CHLORIDE 0.9% 250 ML IVPB SCH (08:54)
[2022-11-04] MEDS: Mupirocin NASAL 2 APPL/1 GM TUBE NAS SCH ×2 (08:59→20:16)
[2022-11-04] MEDS: JUVEN PACKET PO SCH ×2 (09:00→20:16)
[2022-11-04] MEDS: ENSURE ENLIVE 237 ML CAN PO SCH ×2 (09:01→20:16)
--- NOTE | 2022-11-04 16:33 | P.PN ---
Subjective Date of Service: 11/04/22 Chief Complaint: Sacral decubitis Subjective: No new changes, Improving Physical Examination - Vital Signs Temperature: 99.0 F Blood Pressure: 158/85 Pulse: 76 Respirations: 16 Pulse Ox (%): 95 - Physical Exam General: Alert, In no apparent distress HEENT: Atraumatic, Normocephalic Neck: Supple Respiratory: Normal air movement Gastrointestinal: Soft and benign Musculoskeletal: No swelling Neurological: Normal speech - Studies Microbiology Data (last 24 hrs): 10/29/22 14:20 Blood - Blood Aerobic Blood Culture - Final No growth in 5 days. 10/29/22 14:20 Blood - Blood Anaerobic Blood Culture - Final No growth in 5 days. 10/29/22 14:10 Blood - Blood Aerobic Blood Culture - Final No growth in 5 days. 10/29/22 14:10 Blood - Blood Anaerobic Blood Culture - Final No growth in 5 days. Assessment And Plan - Plan # Sepsis likely secondary to Infected Stage IV Left Buttock Pressure Ulcer and possible Osteomyelitis (POA) s/p Debridement She met sepsis criteria based on HR > 90 bpm and WBC > 12,000, and the suspected source is a skin infection. - General Surgery was consulted and she was evaluated by Dr. Cutler - recommendations appreciated - S/P wound debridement on 10/30 - He recommended 2 weeks of Vancomycin + Cefepime, followed by 4 weeks of Vancomycin (6 weeks total of antibiotics) - Today is day 7 of antibiotics - Sepsis order set was initiated - Initial Lactate was 1.4 - Blood cultures drawn before antibiotics were given - Broad spectrum antibiotics started: Vancomycin + Piperacillin-Tazobactam -> Vancomycin + Cefepime - In regards to fluids: - 30 mL/kg of IV fluids was not administered given SBP > 90, MAP > 65, lac tic acid < 4 - Consult PT/OT - will likely require SNF placement. COVID test, PICC to be inserted prior to SNF placement. # Parkinson's Disease - Continue home carbidopa-levodopa Disposition: Pending SNF approval for transfer.
[2022-11-04] MEDS: ENOXAPARIN 40 MG/0.4 ML SQ SCH (18:11)
[2022-11-04] MEDS: CARBIDOPA PO SCH (20:16)
[2022-11-04] MEDS: LEVODOPA PO SCH (20:16)
[2022-11-05] MEDS: VANCOMYCIN 1 GM in NA CHLORIDE 0.9% 250 ML IVPB SCH ×2 (01:38→20:49)
[2022-11-05] MEDS: CEFEPIME 2 GM in NA CHLORIDE 0.9% 100 ML IV SCH (04:23)
[2022-11-05] MEDS: JUVEN PACKET PO SCH ×2 (09:00→20:40)
[2022-11-05] MEDS: ENSURE ENLIVE 237 ML CAN PO SCH ×2 (09:00→20:40)
[2022-11-05] MEDS: Mupirocin NASAL 2 APPL/1 GM TUBE NAS SCH ×2 (09:00→20:40)
[2022-11-05] MEDS: NA CHLORIDE 0.9% 1,000 ML IV SCH ×3 (09:00→22:20)
[2022-11-05] MEDS: HYDROCODONE/APAP 5/325 MG TAB PO PRN (09:45)
[2022-11-05] MEDS: ENOXAPARIN 40 MG/0.4 ML SQ SCH (16:27)
--- NOTE | 2022-11-05 18:18 | P.PN ---
Subjective Date of Service: 11/05/22 Chief Complaint: Sacral decubitis No major complaints except pain. No issues overnight. Patient is tolerating her diet. Physical Examination - Vital Signs Temperature: 97.6 F Blood Pressure: 153/73 Pulse: 70 Respirations: 16 Pulse Ox (%): 94 Assessment And Plan - Plan Physical Exam General: Awake, In no apparent distress Neck: Supple Respiratory: Normal air movement Gastrointestinal: Soft and benign Musculoskeletal: No swelling Neurological: Normal speech Skin: Stage IV sacral decubitus ulcer Plan Sepsis likely secondary to Infected Stage IV Left Buttock Pressure Ulcer and possible Osteomyelitis (POA) s/p Debridement She met sepsis criteria based on HR > 90 bpm and WBC > 12,000, and the suspected source is a skin infection. - General Surgery was consulted and she was evaluated by Dr. Cutler - recommendations appreciated - S/P wound debridement on 10/30 - He recommended 2 weeks of Vancomycin + Cefepime, followed by 4 weeks of Vancomycin (6 weeks total of antibiotics) - Blood cultures: No growth to date. - PT/OT. - PICC placement for outpatient IV antibiotics. - Local wound care - Supportive measures with pain management as needed. Parkinson's Disease - Continue home carbidopa-levodopa
[2022-11-05] MEDS: CARBIDOPA PO SCH (20:39)
[2022-11-05] MEDS: LEVODOPA PO SCH (20:39)
[2022-11-06 04:47] LABS: Absolute Lymphocytes (CBC) 1.3 K/uL (0.7-4.9); Hematocrit 26.1 % (36.0-45.0); Lymphocytes % 19.2 % (15.3-44.8); MCV 80.5 fL (80-100); MPV 7.3 fL (7.6-11.3); RBC Red Blood Cell Count 3.24 M/uL (3.86-4.86)
[2022-11-06 04:58] LABS: Potassium 3.3 mEq/L (3.5-5.1)
[2022-11-06 06:20] LABS: Phosphorus 2.1 mg/dL (2.5-4.9)
[2022-11-06] MEDS: NA CHLORIDE 0.9% 1,000 ML IV SCH ×3 (07:06→23:59)
[2022-11-06] MEDS ORDERED: POTASSIUM PHOS IN 0.9 % NACL 15 MMOL/250 ML BAG IV ONE (08:00)
[2022-11-06] MEDS: Mupirocin NASAL 2 APPL/1 GM TUBE NAS SCH ×2 (08:22→21:13)
[2022-11-06] MEDS: ENSURE ENLIVE 237 ML CAN PO SCH ×2 (08:23→20:54)
[2022-11-06] MEDS: JUVEN PACKET PO SCH ×2 (08:24→20:54)
--- NOTE | 2022-11-06 10:40 | P.DS ---
Admission Date: 10/29/22 Discharge Date: 11/06/22 Disposition: TRANSFER TO SNF - REHAB Discharge Condition: GOOD Reason for Admission: Sacral decubitis Vital Signs/Physical Exam: Temp Pulse Resp BP Pulse Ox 99.6 F 75 16 148/72 H 97 11/06/22 08:00 11/06/22 08:00 11/06/22 08:00 11/06/22 08:00 11/06/22 08:00 Laboratory Data at Discharge: WBC 6.90 thou/uL (4.3-10.9) 11/06/22 04:10 Hgb 8.6 g/dL (12.0-15.0) L 11/06/22 04:10 Hct 26.1 % (36.0-45.0) L 11/06/22 04:10 Plt Count 441 thou/uL (152-406) H 11/06/22 04:10 Sodium 139 mEq/L (136-145) 11/06/22 04:10 Potassium 3.3 mEq/L (3.5-5.1) L 11/06/22 04:10 BUN 22 mg/dL (7-18) H 11/06/22 04:10 Creatinine 0.45 mg/dL (0.55-1.02) L 11/06/22 04:10 Glucose 119 mg/dL (74-106) H 11/06/22 04:10 Phosphorus Cancelled 11/06/22 05:51 Magnesium 2.0 mg/dL (1.6-2.4) 11/03/22 05:34 Home Medications: Carbidopa/Levodopa [Carbidopa-Levo ER 50-200 Tab] 1 each PO BEDTIME 10/29/22 Ensure Enlive 237 ml PO BID can 11/06/22 Navi [Navi*] 1 pkt PO BID 11/06/22 Mupirocin Calcium [Bactroban Nasal*] 1 appl CAMACHO BID tube 11/06/22 Physician Discharge Instructions: Remove outer dressing in a.m. and shower Keep Steri-Strips on at all times Incentive spirometry as instructed Tylenol 3 and Flexeril called into patient's pharmacy Follow-up my office 1 week call for appointment No heavy lifting or strenuous exercise Follow-up with cardiology regarding paroxysmal atrial fibrillation Diet: Regular Activity: No lifting more than 10 lbs Followup: NONE,NONE [Primary Care Provider] - Jaydon Cutler MD [ACTIVE - CAN ADMIT] - 1 Week
[2022-11-06] MEDS: VANCOMYCIN 1 GM in NA CHLORIDE 0.9% 250 ML IVPB SCH (14:28)
[2022-11-06] MEDS: ENOXAPARIN 40 MG/0.4 ML SQ SCH (17:31)
--- NOTE | 2022-11-06 17:52 | P.PN ---
Subjective Date of Service: 11/06/22 Chief Complaint: Sacral decubitis Patient has no new complaint. She is laying in bed comfortably. No issues overnight. No agitation. Physical Examination - Vital Signs Temperature: 99.8 F Blood Pressure: 164/82 Pulse: 81 Respirations: 16 Pulse Ox (%): 95 Assessment And Plan - Plan Physical Exam General: Awake, In no apparent distress Neck: Supple Respiratory: Normal air movement Gastrointestinal: Soft and benign Musculoskeletal: No swelling Neurological: Normal speech Skin: Stage IV sacral decubitus ulcer Plan Sepsis likely secondary to Infected Stage IV Left Buttock Pressure Ulcer and possible Osteomyelitis (POA) s/p Debridement She met sepsis criteria based on HR > 90 bpm and WBC > 12,000, and the suspected source is a skin infection. - General Surgery was consulted and she was evaluated by Dr. Cutler. - S/P wound debridement on 10/30 - Dr. Cutler recommend 6 weeks of vancomycin. - Blood cultures: No growth to date. - PT/OT. - Awaiting PICC/Midline placement for outpatient IV antibiotics. - Local wound care - Supportive measures with pain management as needed. Parkinson's Disease - Continue home carbidopa-levodopa
[2022-11-06] MEDS: CARBIDOPA PO SCH (20:54)
[2022-11-06] MEDS: LEVODOPA PO SCH (20:54)
[2022-11-06] MEDS ORDERED: POTASSIUM 25 MEQ EFFERV TAB PO ONE (21:00)
[2022-11-07 04:10] LABS: Potassium 3.9 mEq/L (3.5-5.1)
[2022-11-07] MEDS ORDERED: POTASSIUM PHOS IN 0.9 % NACL 15 MMOL/250 ML BAG IV ONE (04:49)
[2022-11-07] MEDS: VANCOMYCIN 1 GM in NA CHLORIDE 0.9% 250 ML IVPB SCH (07:31)
[2022-11-07] MEDS: JUVEN PACKET PO SCH ×2 (07:32→20:10)
[2022-11-07] MEDS: Mupirocin NASAL 2 APPL/1 GM TUBE NAS SCH ×2 (07:32→20:09)
[2022-11-07] MEDS: ENSURE ENLIVE 237 ML CAN PO SCH ×2 (07:32→20:10)
[2022-11-07] MEDS ORDERED: POTASSIUM 25 MEQ EFFERV TAB PO ONE (09:00)
[2022-11-07] MEDS ORDERED: SIMETHICONE 125 MG TAB PO ONE (10:52)
[2022-11-07] MEDS ORDERED: BISACODYL 10 MG RECTAL SUPP PR ONE (10:56)
--- NOTE | 2022-11-07 10:56 | P.PN ---
Subjective Date of Service: 11/07/22 Chief Complaint: Sacral decubitis Patient is complaining of abdominal cramps. Last recorded BM was 5 days ago. No agitation. No recorded fever. Physical Examination - Vital Signs Temperature: 99.3 F Blood Pressure: 150/78 Pulse: 77 Respirations: 16 Pulse Ox (%): 95 Assessment And Plan - Plan Physical Exam General: Awake, In no apparent distress Neck: Supple Respiratory: Normal air movement Gastrointestinal: Soft and benign, nondistended, no tenderness, normal bowel sounds Musculoskeletal: No swelling Neurological: Normal speech Skin: Stage IV sacral decubitus ulcer Plan Sepsis likely secondary to Infected Stage IV Left Buttock Pressure Ulcer and possible Osteomyelitis (POA) s/p Debridement She met sepsis criteria based on HR > 90 bpm and WBC > 12,000, and the suspected source is a skin infection. - General Surgery was consulted and she was evaluated by Dr. Cutler. - S/P wound debridement on 10/30 - Dr. Cutler recommend 6 weeks of vancomycin. - Blood cultures: No growth to date. - PT/OT. - Awaiting PICC/Midline placement for outpatient IV antibiotics. - Local wound care - Supportive measures with pain management as needed. Parkinson's Disease - Continue home carbidopa-levodopa Functional constipation Start laxatives and stool softeners.
[2022-11-07] MEDS: NA CHLORIDE 0.9% 1,000 ML IV SCH (14:01)
[2022-11-07] MEDS: ENOXAPARIN 40 MG/0.4 ML SQ SCH (16:08)
[2022-11-07] MEDS: ACETAMINOPHEN 500 MG TAB PO PRN (17:34)
[2022-11-07] MEDS: CARBIDOPA PO SCH (20:07)
[2022-11-07] MEDS: DOCUSATE NA/SENNA CONC 1 TAB PO SCH (20:07)
[2022-11-07] MEDS: LEVODOPA PO SCH (20:07)
[2022-11-08 01:23] LABS: Phosphorus 2.4 mg/dL (2.5-4.9); Potassium 3.7 mEq/L (3.5-5.1)
[2022-11-08] MEDS ORDERED: POTASSIUM CL SA 10 MEQ TAB PO ONE (02:00)
[2022-11-08] MEDS: VANCOMYCIN 1 GM in NA CHLORIDE 0.9% 250 ML IVPB SCH ×2 (02:22→20:12)
[2022-11-08] MEDS: NA CHLORIDE 0.9% 1,000 ML IV SCH (02:23)
[2022-11-08] MEDS: DOCUSATE NA/SENNA CONC 1 TAB PO SCH ×3 (09:14→21:00)
[2022-11-08] MEDS: JUVEN PACKET PO SCH ×2 (09:14→20:15)
[2022-11-08] MEDS: ENSURE ENLIVE 237 ML CAN PO SCH ×2 (09:14→20:15)
[2022-11-08] MEDS: POTASS/SODIUM PHOSPHATE 1 PKT POWD.PACK PO SCH ×3 (09:14→10:51)
[2022-11-08] MEDS ORDERED: POLYETHYL GLY 3350 17 GM/DOSE PO PRN (11:36)
--- NOTE | 2022-11-08 11:36 | P.PN ---
Subjective Date of Service: 11/08/22 Chief Complaint: Sacral decubitis No new complaint. Patient had a bowel movement yesterday. No agitation. Physical Examination - Vital Signs Temperature: 99.2 F Blood Pressure: 156/75 Pulse: 72 Respirations: 16 Pulse Ox (%): 96 Assessment And Plan - Plan Physical Exam General: Awake, In no apparent distress Neck: Supple Respiratory: Normal air movement Gastrointestinal: Soft and benign, nondistended, no tenderness, normal bowel sounds Musculoskeletal: No swelling Neurological: Normal speech Skin: Stage IV sacral decubitus ulcer Plan Sepsis likely secondary to Infected Stage IV Left Buttock Pressure Ulcer and possible Osteomyelitis (POA) s/p Debridement She met sepsis criteria based on HR > 90 bpm and WBC > 12,000, and the suspected source is a skin infection. - General Surgery was consulted and she was evaluated by Dr. Cutler. - S/P wound debridement on 10/30 - Dr. Cutler recommend 6 weeks of vancomycin. - Blood cultures: No growth to date. - PT/OT. - Awaiting PICC/Midline placement for outpatient IV antibiotics. - Local wound care Parkinson's Disease - Continue home carbidopa-levodopa Functional constipation Senna. MiraLAX as needed
[2022-11-08] MEDS: ENOXAPARIN 40 MG/0.4 ML SQ SCH (16:05)
[2022-11-08] MEDS: ACETAMINOPHEN 500 MG TAB PO PRN ×2 (17:19)
[2022-11-08] MEDS: CARBIDOPA PO SCH ×2 (20:14→21:00)
[2022-11-08] MEDS: LEVODOPA PO SCH ×2 (20:14→21:00)
[2022-11-08] MEDS ORDERED: SENOSIDES 8.6 MG TAB PO SCH (21:00)
[2022-11-09 04:33] LABS: Absolute Lymphocytes (CBC) 1.3 K/uL (0.7-4.9); Hematocrit 24.6 % (36.0-45.0); Lymphocytes % 16.5 % (15.3-44.8); MCV 80.3 fL (80-100); MPV 7.5 fL (7.6-11.3); RBC Red Blood Cell Count 3.07 M/uL (3.86-4.86)
[2022-11-09 05:10] LABS: Potassium 3.7 mEq/L (3.5-5.1)
[2022-11-09 05:56] VITALS: BMI 17.9
[2022-11-09] MEDS: ENSURE ENLIVE 237 ML CAN PO SCH (08:30)
[2022-11-09] MEDS: DOCUSATE NA/SENNA CONC 1 TAB PO SCH (08:30)
[2022-11-09] MEDS: JUVEN PACKET PO SCH (08:30)
[2022-11-09] MEDS ORDERED: POTASSIUM 25 MEQ EFFERV TAB PO ONE (09:00)
[2022-11-09 09:09] VITALS: BP 147/58; TEMP 99.2
[2022-11-09 09:10] VITALS: O2SAT 98
--- NOTE | 2022-11-09 09:54 | P.DS ---
Admission Date: 10/29/22 Discharge Date: 11/09/22 Disposition: TRANSFER TO SNF - REHAB Discharge Condition: GOOD Reason for Admission: Sacral decubitis - Problems (1) Sepsis Current Visit: Yes Status: Acute (2) Dementia Current Visit: Yes Status: Acute (3) Pressure ulcer of sacral region, unstageable Current Visit: No Status: Ruled-out Brief History of Present Illness: This is an 87-year-old female with past medical history significant for Parkinson and stage IV sacral decubitus ulcer. Patient presented to the emergency room with her daughter from Dr. Cutler's office. Patient presented with a sacral decubitus wound to her left buttock for duration of 4 to 6 weeks. Per patient's daughter, the wound has not been improving. Patient admitted for wound debridement by Dr. Cutler. Hospital Course: Sepsis likely secondary to Infected Stage IV Left Buttock Pressure Ulcer and possible Osteomyelitis (POA) s/p Debridement Patient met sepsis criteria based on HR > 90 bpm and WBC > 12,000, and the suspected source is a skin infection. - General Surgery was consulted and she was evaluated by Dr. Cutler. - S/P wound debridement on 10/30 - Dr. Cutler recommend 6 weeks of vancomycin. - Blood cultures: No growth to date. - PT/OT. - Midline placement for outpatient IV antibiotics. - Local wound care -Clinically stable for transfer to SNF Parkinson's Disease - Continue home carbidopa-levodopa Functional constipation Managed with Dulcolax suppository Placed on senna for constipation prophylaxis. MiraLAX as needed Vital Signs/Physical Exam: Temp Pulse Resp BP Pulse Ox 99.2 F 82 16 147/58 H 93 11/09/22 08:00 11/09/22 08:00 11/09/22 08:00 11/09/22 08:00 11/09/22 08:00 General: In no apparent distress, Other (Awake) HEENT: Mucous membr. moist/pink Neck: JVD not distended Respiratory: Clear to auscultation bilaterally, Normal air movement Cardiovascular: No edema, Regular rate/rhythm, Normal S1 S2 Gastrointestinal: Normal bowel sounds, Soft and benign, Non-distended Musculoskeletal: Other Integumentary: Other (Stage IV sacral decubitus ulcer.) Neurological: Other (She moves all extremities.) Laboratory Data at Discharge: WBC 8.00 thou/uL (4.3-10.9) 11/09/22 03:48 Hgb 8.0 g/dL (12.0-15.0) L 11/09/22 03:48 Hct 24.6 % (36.0-45.0) L 11/09/22 03:48 Plt Count 501 thou/uL (152-406) H 11/09/22 03:48 Sodium 139 mEq/L (136-145) 11/09/22 03:48 Potassium 3.7 mEq/L (3.5-5.1) 11/09/22 03:48 BUN 24 mg/dL (7-18) H 11/09/22 03:48 Creatinine 0.49 mg/dL (0.55-1.02) L 11/09/22 03:48 Glucose 94 mg/dL (74-106) 11/09/22 03:48 Phosphorus 2.4 mg/dL (2.5-4.9) L 11/08/22 00:53 Magnesium 2.0 mg/dL (1.6-2.4) 11/03/22 05:34 Home Medications: Carbidopa/Levodopa [Carbidopa-Levo ER 50-200 Tab] 1 each PO BEDTIME 10/29/22 Ensure Enlive 237 ml PO BID can 11/06/22 Navi [Navi*] 1 pkt PO BID 11/06/22 Mupirocin Calcium [Bactroban Nasal*] 1 appl CAMACHO BID tube 11/06/22 Diet: Regular Activity: No lifting more than 10 lbs Followup: Harjinder Adames MD [ACTIVE - CAN ADMIT] - (call for an apointment to follow up on paroxysmal atril fibb.) NONE,NONE [Primary Care Provider] - Jaydon Cutler MD [ACTIVE - CAN ADMIT] - 1 Week (call for an apointment. will reevaluate Midline (good for 3 weeks after placement) ) Time spent managing pt's care (in minutes): 38
--- NOTE | 2022-11-09 12:07 | P.PN ---
Subjective Date of Service: 11/09/22 Chief Complaint: Sacral decubitis No new complaint. No event overnight No reported agitation. Physical Examination - Vital Signs Temperature: 99.2 F Blood Pressure: 147/58 Pulse: 82 Respirations: 16 Pulse Ox (%): 93 Assessment And Plan - Current Problems (Diagnosis) (1) Sepsis Current Visit: Yes Status: Acute (2) Dementia Current Visit: Yes Status: Acute (3) Pressure ulcer of sacral region, unstageable Current Visit: No Status: Ruled-out - Plan Physical Exam General: Awake, In no apparent distress Neck: Supple Respiratory: Normal air movement Gastrointestinal: Soft and benign, nondistended, no tenderness, normal bowel sounds Musculoskeletal: No swelling Neurological: Normal speech Skin: Stage IV sacral decubitus ulcer Plan Sepsis likely secondary to Infected Stage IV Left Buttock Pressure Ulcer and possible Osteomyelitis (POA) s/p Debridement She met sepsis criteria based on HR > 90 bpm and WBC > 12,000, and the suspected source is a skin infection. - General Surgery was consulted and she was evaluated by Dr. Cutler. - S/P wound debridement on 10/30 - Dr. Cutler recommend 6 weeks of vancomycin. - Blood cultures: No growth to date. - PT/OT. - Midline placed for outpatient IV antibiotics. - Local wound care -Awaiting SNF placement. Parkinson's Disease - Continue home carbidopa-levodopa Functional constipation Senna. MiraLAX as needed
[2022-11-09] MEDS: VANCOMYCIN 1 GM in NA CHLORIDE 0.9% 250 ML IVPB SCH (13:27)
== END 2022-11-09 14:49 | DRG 853 ==
LOC: ER 10:59 → ERHOLD 16:05 → 4TH 17:06
PROVIDERS: ADMIT Internal Medicine; ATTEND Internal Medicine
PROC: 0QB10ZZ Excision of Sacrum, Open Approach (ICD-10-PCS; principal; 2022-10-30 09:45)
DX: A41.9 Sepsis, unspecified organism (principal); E43 Unspecified severe protein-calorie malnutrition; Z68.1 Body mass index [BMI] 19.9 or less, adult; I96 Gangrene, not elsewhere classified; M86.8X8 Other osteomyelitis, other site; K59.04 Chronic idiopathic constipation; G20 Parkinson's disease; F03.90 Unspecified dementia, unspecified severity, without behavioral disturbance, psychotic disturbance, mood disturbance, and anxiety; L89.150 Pressure ulcer of sacral region, unstageable; Z88.6 Allergy status to analgesic agent; Z28.310 Unvaccinated for COVID-19; Z79.899 Other long term (current) drug therapy; Z20.822 Contact with and (suspected) exposure to COVID-19
CPT/HCPCS: 36415; 71045; 80048; 80202; 82947; 83605; 83735; 84100; 84132; 85025; 87040; 87070; 87176; 87205; 88304; 93005; 96374; 96375; 97161; 97165; 97530; 99284; J0692; J1100; J1170; J1650; J2001; J2405; J2543; J2704; J3010; J3475; J3480; J3590; J7030; J7050; J7120; U0003